=== PATIENT | female | born 2000 | race Caucasian/White ===

== ENCOUNTER 2020-08-24 14:53 | Emergency (ER) | payer BC, MEDICAID, SELFPAY ==
[2020-08-24 14:54] VITALS: BP 99/69; PULSE 84; RESP 16; TEMP 36.1; BMI 25.8
--- NOTE | 2020-08-24 15:37 | RAD_ITS ---
STUDY: X-RAY - LEFT KNEE REASON FOR EXAM: Female, 20 years old. left knee pain x months, pt states doing PT, woke up today and pain worse TECHNIQUE: 4 view(s) of the knee. COMPARISON: None. FINDINGS: Normal visualized distal femur. Normal visualized proximal tibia and fibula. Normal proximal tibiofibular articulation. Normal medial femorotibial compartment. Normal lateral femorotibial compartment. Normal patellofemoral articulation. There is no demonstrated joint effusion. The soft tissue structures are unremarkable. RAD/Knee 4 or More Views IMPRESSION: Normal x-ray examination of the knee. Electronically Signed: Khoi Reinoso MD ([place]) at 15:54 EST , Service support ,
--- NOTE | 2020-08-24 15:37 | ED.DCSUM_ITS ---
History of Present Illness Chief Complaint: Lower Extremity Injury Informant: Patient Narrative: 20-year-old female presenting with left knee pain. She states this is a longstanding issue with her. She states that she has played years of softball the knee has been a problem for a while. She is recently seen by a physician and had x-rays of the left knee. She is in physical therapy for her left knee. Today she woke up with more pain in her left knee. She denies any new trauma. She denies any numbness or tingling. She states that it hurts more inferior to the patella and medial aspect of knee. She is ambulatory with antalgic gait. She is currently on steroids from her other physician. Past Medical History - Allergies and Home Meds Allergies/Adverse Reactions: Allergies No Known Allergies Allergy (Verified 08/24/20 14:58) Primary Care Physician: Jamie Sauceda,Out of [NON-STAFF] - Prior records reviewed: Yes Past Medical History: None Surgical History: noncontributory Lives: With Family Smoking Status: Never smoker Alcohol: None Drugs: None Review of Systems General: Denies: Chills, Fever, Sweats Eyes: Denies: Visual changes - bilaterally, Diplopia ENT: Denies: Rhinorrhea, Sore throat Cardiovascular: Denies: Chest pain, Palpitations Respiratory: Denies: Dyspnea, Cough, Dyspnea on exertion Gastrointestinal: Denies: Abdominal pain, Nausea, Vomiting, Diarrhea, Melena, Hematochezia Musculoskeletal: Reports: Extremity Pain - Left knee pain. Denies: Back pain Skin: Denies: Rash, Abscess Neurological: Denies: Headache, Weakness Psych: Denies: Depression, Anxiety Physical Exam Vital Signs/Narrative: Vital Signs Temp Pulse Resp BP 08/24/20 14:54 97.0 F L 84 16 99/69 General: Well nourished, No Acute Distress Head: Normocephalic, Atraumatic Eyes: Perrl, EOMI ENT: Moist mucous membranes, No rhinorrhea Extremities: - - Tenderness to palpation at the insertion point of the patellar tendon. Patient has full range of motion in flexion and extension. There is no ligament laxity. Tenderness to palpation over the medial joint line. There is no bruising. There is no short arc range of motion tenderness. Skin: Normal color, No rash Neurological: Alert, Oriented x3 Psychological: Normal affect, Normal Mood Diagnostic/Tx/Re-eval Clinical Impression(s) from Imaging Studies Knee X-Ray 08/24/20 15:37 IMPRESSION: Normal x-ray examination of the knee. Electronically Signed: Khoi Reinoso MD ([place]) at 15:54 EST , Service support , - Medical Decision Making 20-year-old female presenting with left knee pain. She request something for pain and johanny-rays of her knee as she has not received the results of these. Patient given a [place] and left knee x-ray is obtained. My interpretation of left knee x-ray shows no acute fracture or subluxation. Radiology does agree. Patient does state that she already had an MRI of her knee which she is waiting for the results for. Patient counseled to follow-up with her sports medicine physician. She requested a knee immobilizer and was given this. She is instructed on ice and elevation. She is also given a prescription for Naprosyn. She declined crutches in the ED. Impression 1. Left knee strain ED Disposition - Plan for ED Patient: Disposition: Home or Assisted Living Instructions: ED Knee Sprain Prescriptions: Naproxen 500 mg PO BID PRN PRN #30 tab PRN Reason: Pain Prescription Printed Referrals: [facility] Doctor,Out of [NON-STAFF] -
[2020-08-24] MEDS: HYDROcodone Bitartrate/Apap 5/325 Tablet PO (15:56)
[2020-08-24 16:33] VITALS: BP 112/74; PULSE 86; RESP 16; O2SAT 97
== END 2020-08-24 16:35 | disposition home or self-care (01) ==
LOC: ED 16:20
PROVIDERS: Emergency Provider Student in an Organized Health Care Education/Training Program
DX: S86.912A Strain of unspecified muscle(s) and tendon(s) at lower leg level, left leg, initial encounter (principal); X58.XXXA Exposure to other specified factors, initial encounter; Y93.9 Activity, unspecified; Y92.9 Unspecified place or not applicable; Y99.9 Unspecified external cause status
CPT/HCPCS: 73564; 99283

== ENCOUNTER → 2020-09-15 11:23 | Outpatient (CLI) | payer BC, MEDICAID, SELFPAY | PROVIDERS: Referring Provider Obstetrics & Gynecology; Visit Provider Obstetrics & Gynecology | DX: Z32.01 Encounter for pregnancy test, result positive (principal) | CPT/HCPCS: 36415; 84702 ==

== ENCOUNTER → 2020-09-18 11:16 | Outpatient (CLI) | payer BC, MEDICAID, SELFPAY ==
--- NOTE | 2020-09-18 11:17 | US_ITS ---
STUDY: FIRST TRIMESTER OBSTETRICAL ULTRASOUND REASON FOR EXAM: Female, 20 years old dating/viability LMP: 08/01/2020 TECHNIQUE: Transvaginal TECHNICAL QUALITY: Adequate. PRIOR ULTRASOUND: None. FINDINGS: There is visualization of a single gestational sac in a normal intrauterine position. The mean sac diameter (MSD) measures 2.45 cm, indicating an estimated gestational age (EGA) of 7 weeks, 4 days. The gestational sac shape is within normal limits. There is a visualized yolk sac. The yolk sac measures 4.6 mm. The placenta is non-visualized. There is visualization of a live embryo. The crown-rump length (CRL) measures 8 mm, indicating an estimated gestational age (EGA) of 6 weeks, 6 days. There is demonstrated cardiac activity with a heart rate of 119 bpm. The estimated gestation age (EGA) by LMP is 7 weeks, 2 days. The estimated date of delivery (DERICK) by LMP is 05/05/2021. The estimated gestation age (EGA) by US is 6 weeks, 6 days. The estimated date of delivery (DERICK) by US is 05/08/2021. The uterus measures 10.6 cm x 6.5 cm x 6.3 cm. There is no demonstrated uterine fibroid. The cervix is closed. The right ovary measures 2.3 cm x 1.9 cm x 1.1 cm. There is no right ovarian cyst. There is no visualized right adnexal mass or complex lesion. The left ovary measures 3 cm x 1.5 cm x 1.6 cm. There is no left ovarian cyst. There is no visualized left adnexal mass or complex lesion. There is no fluid in the cul de sac. US/Transvaginal w/Preg US IMPRESSION: Single live intrauterine gestation with a mean gestational age of 6 weeks and 6 days. Electronically Signed: Fredo Grant MD at 13:49 EST , Service support ,
== END ==
PROVIDERS: Referring Provider Obstetrics & Gynecology; Visit Provider Obstetrics & Gynecology
DX: Z34.91 Encounter for supervision of normal pregnancy, unspecified, first trimester (principal)
CPT/HCPCS: 76817

== ENCOUNTER → 2020-09-25 15:40 | Outpatient (CLI) | payer BC, MEDICAID, SELFPAY ==
[2020-09-25 14:45] VITALS: BMI 29.3
[2020-09-25 16:00] LABS: Absolute Lymphocyte Count 2.12 X10^3/uL (0.83-4.51); Absolute Neutrophil Count 6.6 X10^3/uL (2.0-7.7); Basophil# 0.03 X10^3/uL; Basophil% 0.3 % (0-1); Eosinophil# 0.05 X10^3/uL; Eosinophils% 0.5 % (0-5); Hematocrit 41.1 % (37-47); Hemoglobin 13.6 g/dL (12.0-15.0); Lymphocyte # 2.12 X10^3/ul (4.0); Lymphocyte % 22.1 % (19-41); Mean Corp Hgb Conc 33.1 g/dL (32-36); Mean Corpuscular Hgb 28.3 pg (27.0-32.0); Mean Corpuscular Volume 85.6 fL (81-99); Mean Platelet Vol. 9.9 fl (6.2-12.0); Monocyte# 0.79 X10^3/uL; Monocyte% 8.2 % (0-10); NRBC Flagged by Analyzer 0 % (0-5); Neutrophil # 6.59 X10^3/uL (2.7-7.7); Neutrophil % 68.6 % (47-70); Platelet Count 322 K/mm3 (150-450); RBC Distribution Width CV 15.1 % (11.6-14.6); RBC Distribution Width SD 47.1 fl (35.1-43.9); White Blood Count 9.6 K/mm3 (4.4-11.0)
[2020-09-25 18:01] LABS: Amphetamine Urine VISTA NEGATIVE (<1000 ng/mL); Barbiturate Urine VISTA NEGATIVE (< 200 ng/mL); Benzodiazepine Urine VISTA NEGATIVE (< 200 ng/mL); Cocaine Urine VISTA NEGATIVE (< 300 ng/mL); Ecstacy Urine VISTA NEGATIVE (< 500 ng/mL); Methadone Urine VISTA NEGATIVE (< 300 ng/mL); PCP Urine VISTA NEGATIVE (< 25 ng/mL); THC Urine VISTA NEGATIVE (< 50 ng/mL); Vista UDS pH Range 5
[2020-09-26 10:09] LABS: HIV - WCH Non-Reactive (Nonreactive); Hepatitis B Surface Antigen Non-Reactive (Nonreactive); Hepatitis C Antibody Non-Reactive (Nonreactive); Rubella IgG Reactive (Nonreactive)
[2020-09-29 03:06] LABS: Chlamydia By Nucleic Acid AMP Negative (Negative)
[2020-09-29 07:33] LABS: Gonococcus By Nucleic Acid AMP Negative (Negative)
[2020-10-02 20:19] LABS: HPV APTIMA, High Risk Positive (Negative); HPV Reflexed? YES, CHARGE PATIENT
== END ==
PROVIDERS: Referring Provider Obstetrics & Gynecology; Visit Provider Obstetrics & Gynecology
DX: Z12.4 Encounter for screening for malignant neoplasm of cervix (principal); Z34.80 Encounter for supervision of other normal pregnancy, unspecified trimester
CPT/HCPCS: 36415; 80307; 85025; 86703; 86762; 86803; 86850; 86900; 86901; 87086; 87088; 87340; 87491; 87591; 87624; 88175; G0145

== ENCOUNTER → 2020-10-24 14:13 | Outpatient (CLI) | payer BC, MEDICAID, SELFPAY ==
[2020-10-24 13:26] VITALS: BMI 29.8
[2020-10-24 15:19] LABS: NATERA MAILED SPECIMEN
[2020-10-27 10:14] LABS: Syphilis Antibodies Non-reactive
== END ==
PROVIDERS: Referring Provider Obstetrics & Gynecology; Visit Provider Obstetrics & Gynecology
DX: Z34.82 Encounter for supervision of other normal pregnancy, second trimester (principal); Z31.430 Encounter of female for testing for genetic disease carrier status for procreative management
CPT/HCPCS: 86780

== ENCOUNTER 2021-01-05 07:45 | Outpatient (CLI) | payer BC, MEDICAID, SELFPAY ==
[2020-12-26 15:23] VITALS: BMI 29.8
[2021-01-05 08:06] VITALS: PULSE 82; O2SAT 95
[2021-01-05 08:08] VITALS: BP 115/77; PULSE 90; TEMP 37.2; O2SAT 99
[2021-01-05 08:09] VITALS: BMI 32.5
[2021-01-05 09:26] LABS: Hematocrit 35.5 % (37-47); Hemoglobin 11.1 g/dL (12.0-15.0); Mean Corp Hgb Conc 31.3 g/dL (32-36); Mean Corpuscular Hgb 28.3 pg (27.0-32.0); Mean Corpuscular Volume 90.6 fL (81-99); Mean Platelet Vol. 10.6 fl (6.2-12.0); Platelet Count 251 K/mm3 (150-450); RBC Distribution Width CV 13.9 % (11.6-14.6); RBC Distribution Width SD 45.6 fl (35.1-43.9); Red Blood Count 3.92 M/mm3 (4.2-5.4); White Blood Count 9.7 K/mm3 (4.4-11.0)
[2021-01-05 09:31] LABS: Fibrinogen 390 mg/dl (203-444)
--- NOTE | 2021-01-06 03:34 | OB.TRI.PN_ITS ---
Progress Notes Date of Service: 01/05/21 Progress Note: Patient presents for triage evaluation secondary to abdominal pain FHT: 150s present [place]: No regular contractions Assessment and plan: Abdominal pain, CBC fibrinogen type and screen done, RhoGam given, reactive NST, reassuring maternal and status patient discharged to home to follow-up as scheduled. See problem list details for additional plan information. Laboratory Studies: Laboratory Tests 01/05/21 01/05/21 01/05/21 Range/Units 09:00 09:00 09:00 WBC 9.7 (4.4-11.0) K/mm3 RBC 3.92 L (4.2-5.4) M/mm3 Hgb 11.1 L (12.0-15.0) g/dL Hct 35.5 L (37-47) % MCV 90.6 (81-99) fL MCH 28.3 (27.0-32.0) pg MCHC 31.3 L (32-36) g/dL RDW Std Deviation 45.6 H (35.1-43.9) fl RDW Coeff of Tosin 13.9 (11.6-14.6) % Plt Count 251 (150-450) K/mm3 MPV 10.6 (6.2-12.0) fl Fibrinogen 390 (203-444) mg/dl Blood Type A NEGATIVE Antibody Screen NEGATIVE Screen Cancelled Baby's Blood Type Cancelled Baby's KIERA Cancelled Charges/Coding Procedures Urinary/Genital 52xxx-59xxx: No Charge
[2021-01-06 07:15] LABS: Kleihauer-Betke Negative
== END 2021-01-05 11:14 | disposition home or self-care (01) ==
LOC: WPOUT 07:51 → WP 07:52
PROVIDERS: Referring Provider Obstetrics & Gynecology; Visit Provider Obstetrics & Gynecology
DX: O26.90 Pregnancy related conditions, unspecified, unspecified trimester (principal); R10.9 Unspecified abdominal pain
CPT/HCPCS: 59050; 85027; 85384; 85460; 86850; 86900; 86901; 90384; 96372; 99218; G0378; J2790

== ENCOUNTER → 2021-01-23 10:56 | Outpatient (CLI) | payer BC, MEDICAID, SELFPAY ==
[2021-01-14 15:08] VITALS: BMI 32.5
[2021-01-23 11:17] LABS: Absolute Lymphocyte Count 1.51 X10^3/uL (0.83-4.51); Absolute Neutrophil Count 6.8 X10^3/uL (2.0-7.7); Basophil# 0.02 X10^3/uL; Basophil% 0.2 % (0-1); Eosinophil# 0.15 X10^3/uL; Eosinophils% 1.6 % (0-5); Hematocrit 34.3 % (37-47); Hemoglobin 10.9 g/dL (12.0-15.0); Lymphocyte # 1.51 X10^3/ul (0.83-4.51); Lymphocyte % 16.1 % (19-41); Mean Corp Hgb Conc 31.8 g/dL (32-36); Mean Corpuscular Hgb 28.3 pg (27.0-32.0); Mean Corpuscular Volume 89.1 fL (81-99); Mean Platelet Vol. 10.5 fl (6.2-12.0); Monocyte# 0.75 X10^3/uL; NRBC Flagged by Analyzer 0 % (0-5); Neutrophil # 6.83 X10^3/uL (2.7-7.7); Neutrophil % 72.9 % (47-70); Platelet Count 259 K/mm3 (150-450); RBC Distribution Width CV 13.9 % (11.6-14.6); RBC Distribution Width SD 44.9 fl (35.1-43.9); Red Blood Count 3.85 M/mm3 (4.2-5.4); White Blood Count 9.4 K/mm3 (4.4-11.0)
[2021-01-23 11:18] LABS: Glucose Challenge Gest 1H 50g 108 mg/dL (70-140)
== END ==
PROVIDERS: Referring Provider Obstetrics & Gynecology; Visit Provider Obstetrics & Gynecology
DX: Z34.92 Encounter for supervision of normal pregnancy, unspecified, second trimester (principal); Z3A.21 21 weeks gestation of pregnancy
CPT/HCPCS: 36415; 82950; 85025

== ENCOUNTER → 2021-02-24 15:34 | Outpatient (CLI) | payer BC, MEDICAID, SELFPAY ==
[2021-02-24 15:17] VITALS: BMI 32.5
[2021-02-24 15:51] LABS: Absolute Lymphocyte Count 2.08 X10^3/uL (0.83-4.51); Absolute Neutrophil Count 7.5 X10^3/uL (2.0-7.7); Basophil# 0.03 X10^3/uL; Basophil% 0.3 % (0-1); Eosinophil# 0.11 X10^3/uL; Hematocrit 32.9 % (37-47); Hemoglobin 10.3 g/dL (12.0-15.0); Lymphocyte # 2.08 X10^3/ul (0.83-4.51); Lymphocyte % 19.4 % (19-41); Mean Corp Hgb Conc 31.3 g/dL (32-36); Mean Corpuscular Hgb 26.4 pg (27.0-32.0); Mean Corpuscular Volume 84.4 fL (81-99); Mean Platelet Vol. 10.6 fl (6.2-12.0); Monocyte# 0.91 X10^3/uL; Monocyte% 8.5 % (0-10); NRBC Flagged by Analyzer 0 % (0-5); Neutrophil # 7.49 X10^3/uL (2.7-7.7); Neutrophil % 69.9 % (47-70); Platelet Count 273 K/mm3 (150-450); RBC Distribution Width SD 43.3 fl (35.1-43.9); White Blood Count 10.7 K/mm3 (4.4-11.0)
== END ==
PROVIDERS: Referring Provider Nurse Practitioner Women's Health; Visit Provider Nurse Practitioner Women's Health
DX: Z34.93 Encounter for supervision of normal pregnancy, unspecified, third trimester (principal)
CPT/HCPCS: 36415; 85025; 86850; 86870; 86900; 86901

== ENCOUNTER → 2021-04-01 11:35 | Outpatient (CLI) | payer BC, MEDICAID, SELFPAY ==
[2021-04-01 11:58] LABS: Absolute Lymphocyte Count 1.64 X10^3/uL (0.83-4.51); Absolute Neutrophil Count 6.7 X10^3/uL (2.0-7.7); Basophil# 0.03 X10^3/uL; Basophil% 0.3 % (0-1); Eosinophil# 0.12 X10^3/uL; Eosinophils% 1.3 % (0-5); Hematocrit 33.3 % (37-47); Lymphocyte # 1.64 X10^3/ul (0.83-4.51); Lymphocyte % 17.2 % (19-41); Mean Corpuscular Hgb 24.9 pg (27.0-32.0); Mean Corpuscular Volume 82.8 fL (81-99); Monocyte# 0.87 X10^3/uL; Monocyte% 9.1 % (0-10); NRBC Flagged by Analyzer 0 % (0-5); Neutrophil # 6.74 X10^3/uL (2.7-7.7); Neutrophil % 70.8 % (47-70); Platelet Count 238 K/mm3 (150-450); RBC Distribution Width CV 15.6 % (11.6-14.6); RBC Distribution Width SD 46.9 fl (35.1-43.9); Red Blood Count 4.02 M/mm3 (4.2-5.4); White Blood Count 9.5 K/mm3 (4.4-11.0)
== END ==
PROVIDERS: Referring Provider Obstetrics & Gynecology; Visit Provider Obstetrics & Gynecology
DX: O99.012 Anemia complicating pregnancy, second trimester (principal); D50.9 Iron deficiency anemia, unspecified; O26.892 Other specified pregnancy related conditions, second trimester; Z67.91 Unspecified blood type, Rh negative; Z3A.00 Weeks of gestation of pregnancy not specified
CPT/HCPCS: 36415; 85025; 86850; 86900; 86901

== ENCOUNTER → 2021-04-10 | Outpatient (CLI) | payer BC, MEDICAID, SELFPAY | END | disposition home or self-care (01) | LOC: LABSPEC 16:09 | PROVIDERS: Referring Provider Obstetrics & Gynecology; Visit Provider Obstetrics & Gynecology | DX: Z34.80 Encounter for supervision of other normal pregnancy, unspecified trimester (principal) | CPT/HCPCS: 87081 ==

== ENCOUNTER 2021-04-23 21:40 | Outpatient (CLI) | payer BC, MEDICAID, SELFPAY ==
[2021-04-23] VITALS (14 sets, daily range): BP systolic 119; BP diastolic 75; PULSE 106–125; TEMP 36.8; O2SAT 96–99; BMI 34.3
--- NOTE | 2021-04-23 22:39 | EKG12_ITS ---
Test Reason : TACHYCARDIA Blood Pressure : / mmHG Vent. Rate : 114 BPM Atrial Rate : 114 BPM P-R Int : 144 ms QRS Dur : 078 ms QT Int : 334 ms P-R-T Axes : 033 027 038 degrees QTc Int : 460 ms Sinus tachycardia Otherwise normal ECG No previous ECGs available Confirmed by KATEY OSULLIVAN, AMOS ([id number]), index editor HIWOT EAGLE ([id number]) on 04/28/2021 9:53:45 AM Referred By: BERNIE Confirmed By:AMOS DEL TORO MD
[2021-04-23] MEDS: Lactated Ringers 1,000 ML 999 ML IV (22:55)
[2021-04-23 23:27] LABS: Absolute Lymphocyte Count 0.92 X10^3/uL (0.83-4.51); Absolute Neutrophil Count 5.8 X10^3/uL (2.0-7.7); Basophil# 0.04 X10^3/uL; Basophil% 0.5 % (0-1); Eosinophil# 0.01 X10^3/uL; Eosinophils% 0.1 % (0-5); Hematocrit 30.9 % (37-47); Hemoglobin 9.2 g/dL (12.0-15.0); Lymphocyte # 0.92 X10^3/ul (0.83-4.51); Lymphocyte % 11.3 % (19-41); Mean Corp Hgb Conc 29.8 g/dL (32-36); Mean Corpuscular Hgb 23.9 pg (27.0-32.0); Mean Corpuscular Volume 80.3 fL (81-99); Mean Platelet Vol. 11.7 fl (6.2-12.0); Monocyte# 1.08 X10^3/uL; Monocyte% 13.2 % (0-10); NRBC Flagged by Analyzer 0.4 % (0-5); Neutrophil # 5.81 X10^3/uL (2.7-7.7); Neutrophil % 71.1 % (47-70); Platelet Count 195 K/mm3 (150-450); RBC Distribution Width CV 17.2 % (11.6-14.6); RBC Distribution Width SD 49.1 fl (35.1-43.9); Red Blood Count 3.85 M/mm3 (4.2-5.4); White Blood Count 8.2 K/mm3 (4.4-11.0)
[2021-04-24 00:01] VITALS: PULSE 114; O2SAT 97
--- NOTE | 2021-04-29 07:58 | OB.TRI.PN ---
Progress Notes Date of Service: 04/23/21 Progress Note: Patient presents for triage evaluation secondary to painful bump on lower abdomen. Area consistent with edema. Incidentally found to be tachycardic. EKG and CBC normal. Resolved with IV fluids. FHT: Moderate variability reactive no decelerations category I tracing [place]: No Contractions Assessment and plan: Reactive NST, reassuring maternal and status patient discharged to home to follow-up at next scheduled visit. See problem list details for additional plan information. Laboratory Studies: Laboratory Tests 04/23/21 Range/Units 22:55 WBC 8.2 (4.4-11.0) K/mm3 RBC 3.85 L (4.2-5.4) M/mm3 Hgb 9.2 L (12.0-15.0) g/dL Hct 30.9 L (37-47) % MCV 80.3 L (81-99) fL MCH 23.9 L (27.0-32.0) pg MCHC 29.8 L (32-36) g/dL RDW Std Deviation 49.1 H (35.1-43.9) fl RDW Coeff of Tosin 17.2 H (11.6-14.6) % Plt Count 195 (150-450) K/mm3 MPV 11.7 (6.2-12.0) fl Immature Gran % (Auto) 3.800 H (0.0-0.9) % Neut % (Auto) 71.1 H (47-70) % Lymph % (Auto) 11.3 L (19-41) % Dickey % (Auto) 13.2 H (0-10) % Eos % (Auto) 0.1 (0-5) % Baso % (Auto) 0.5 (0-1) % Absolute Neuts (auto) 5.8 (2.0-7.7) X10^3/uL Absolute Lymphs (auto) 0.92 (0.83-4.51) X10^3/uL Nucleated RBC % 0.4 (0-5) % Charges/Coding Procedures Urinary/Genital 52xxx-59xxx: [id number] non-stress test Interp
== END 2021-04-24 00:10 | disposition home or self-care (01) ==
LOC: WPOUT 21:48 → WP 21:49
PROVIDERS: Visit Provider Obstetrics & Gynecology
DX: O99.891 Other specified diseases and conditions complicating pregnancy (principal); L98.9 Disorder of the skin and subcutaneous tissue, unspecified; R00.0 Tachycardia, unspecified; Z3A.00 Weeks of gestation of pregnancy not specified
CPT/HCPCS: 96360; 36415; 59025; 59050; 85025; 93005; 99218; J7120; G0378

== ENCOUNTER 2021-05-02 05:48 | Inpatient (IN) | payer BC, MEDICAID, SELFPAY ==
[2021-05-02] VITALS (48 sets, daily range): BP systolic 102–135; BP diastolic 56–80; PULSE 74–113; RESP 16–18; TEMP 36.2–36.5; O2SAT 86–99; BMI 34.0
[2021-05-02] MEDS: Lactated Ringers 1,000 ML 50 ML IV (06:00)
[2021-05-02] MEDS: Lactated Ringers 500 ML 999 ML IV (06:05)
[2021-05-02 06:14] LABS: Absolute Lymphocyte Count 1.76 X10^3/uL (0.83-4.51); Absolute Neutrophil Count 3.1 X10^3/uL (2.0-7.7); Basophil# 0.02 X10^3/uL; Basophil% 0.4 % (0-1); Eosinophil# 0.04 X10^3/uL; Eosinophils% 0.8 % (0-5); Hematocrit 37.1 % (37-47); Hemoglobin 10.9 g/dL (12.0-15.0); Lymphocyte # 1.76 X10^3/ul (0.83-4.51); Lymphocyte % 33.4 % (19-41); Mean Corp Hgb Conc 29.4 g/dL (32-36); Mean Corpuscular Hgb 23.4 pg (27.0-32.0); Mean Corpuscular Volume 79.6 fL (81-99); Mean Platelet Vol. 11.2 fl (6.2-12.0); Monocyte# 0.32 X10^3/uL; Monocyte% 6.1 % (0-10); NRBC Flagged by Analyzer 0 % (0-5); Neutrophil # 3.08 X10^3/uL (2.7-7.7); Neutrophil % 58.4 % (47-70); Platelet Count 253 K/mm3 (150-450); RBC Distribution Width CV 17.8 % (11.6-14.6); RBC Distribution Width SD 50.4 fl (35.1-43.9); Red Blood Count 4.66 M/mm3 (4.2-5.4); White Blood Count 5.3 K/mm3 (4.4-11.0)
--- NOTE | 2021-05-02 06:22 | HP.PCM.OB_ITS ---
HPI - General General Date of Admission: 05/02/21 HPI Narrative NABIL LIPSCOMB, is a 20 F who presents IAL 4 cm dilated Maternal Data Information DERICK Calculator Estimated Delivery Date Method Current WG Current Estimate 05/08/21 LMP (Certain) 39w 1d Other Estimates 05/08/21 Ultrasound #1 39w 1d PFSH PFSH Medical History Anemia No significant family history No significant medical problems Home Medications ferrous sulfate 325 mg (65 mg iron) tablet 325 mg PO DAILY 04/01/21 [History Last Taken 05/01/21] famotidine [Pepcid] 20 mg PO BID 05/02/21 [History Last Taken 05/01/21] Allergy/AdvReac Type Severity Reaction Status Date / Time No Known Allergies Allergy Verified 05/02/21 06:16 Surgical History No significant past surgical history Social History household members: family housing: house number of children: 1 pets and animals: Yes sexually active: No Smoking Status: Never smoker second hand exposure: Yes alcohol intake: current alcohol intake frequency: holidays/special occasions only details: not while substance use type: does not use seatbelt use: always do you feel safe at home: Yes additional social history: BF: Jase History 2 Elective abortions Hx Para 1 Spontaneous abortions Hx # Term Pregnancies Ectopic pregnancies Hx # Pregnancies Multiple births # of living children 1 Past Pregnancies Del. Date Name GA/Weeks Outcome Route Bth Weight Gen [facility]20 Tia 36 live - 6lbs 9oz Female 13 romero rs epidural [facility] in [place], [place] Dr. Mckinley Delivery Date: 02/29/20 PROM Concha Lopez Visit Details Expected Delivery Route/Plan Labor Preferences- CB/BF classes: no labor support person: Jase labor intervention preferences: [] pain management options preferred: epidural cut cord/dad catch: cord : no PP control planned: discussed discussed possible routes of delivery and associated risks: [] special requests: [] Plans covid status: non immune flu vaccine: tdap vaccine: given rhogam: 6/22 LARC form signed: yes Problem list reviewed and updated with the most current plan of care details and appropriate orders placed. Relevant counseling for the gestational age provided. Continue routine care and follow up unless otherwise noted in visit notes/problem list details OB Flowsheet Initial Weight: 199 lb Date -?-?-?-?-?-?-?-?-?-?-?-?- EGA Weight BP Urine Prot -?-?-?-?-?-?-?-?-?-?-?-?- Glucose FHR FuHt Pres Dilation -?-?-?-?-?-?-?-?-?-?-?-?- Effaced St Visit Note 09/25/20 -?-?-?-?-?-?-?-?-?-?-?-?- 7w 6d 199 lb (+0 oz) 118/78 -?-?-?-?-?-?-?-?-?-?-?-?- 168 -?-?-?-?-?-?-?-?-?-?-?-?- GP - CRL 14mm co nsistent with prior US. 10/24/20 -?-?-?-?-?-?-?-?-?-?-?-?- 12w 0d 202 lb (+3 lb) 122/76 Negative -?-?-?-?-?-?-?-?-?-?-?-?- Negative 150 -?-?-?-?-?-?-?-?-?-?-?-?- SM- no vb crmapi ng, ordered meclizine. 11/21/20 -?-?-?-?-?-?-?-?-?-?-?-?- 16w 0d 208 lb 4 oz (+9 lb 4 oz) 112/70 -?-?-?-?-?-?-?-?-?-?-?-?- 150 -?-?-?-?-?-?-?-?-?-?-?-?- GP - no cramping or bleeding. Anatomy ordered. Discussed +carrier screen. Information given. Undecided on partner screening. 12/26/20 -?-?-?-?-?-?-?-?-?-?-?-?- 21w 0d 218 lb (+19 lb) 120/80 -?-?-?-?-?-?-?-?-?-?-?-?- 145 20 -?-?-?-?-?-?-?-?-?-?-?-?- Sm- no vb lof go od fm no reuglar ctx 01/14/21 -?-?-?-?-?-?-?-?-?-?-?-?- 23w 5d 225 lb 2 oz (+26 lb 2 oz) 134/80 Negative -?-?-?-?-?-?-?-?-?-?-?-?- Negative 155 23 -?-?-?-?-?--?-?-?-?-?-?-?- GP - no LOF, VB, DFM, ctx. Received rhogam in triage 01/0602/13/21 -?-?-?-?-?-?-?-?-?-?-?-?- 28w 0d 231 lb (+32 lb) 118/84 -?-?-?-?-?-?-?-?-?-?-?-?- 140 28 -?-?-?-?-?-?-?-?-?-?-?-?- SM- no vb lof go od fm no regular ctx 02/24/21 -?-?-?-?-?-?-?-?-?-?-?-?- 29w 4d 234 lb (+35 lb) 118/68 Negative -?-?-?-?-?-?-?-?-?-?-?-?- Negative 139 30 -?-?-?-?-?-?-?-?-?-?-?-?- -No VB, LOF. G ood FM. Has not done repeat anatomy US to complete heart views. Per MFM FTC appt, pt states unaware. Will reschedule. Larc, tdap -No VB, LOF. Good FM. Has not done. repeat anatomy US to complete heart views. Per MFM FTC appt, pt states unaware. Will reschedule. Larc, tdap. Rpt CBC today 03/13/21 -?-?-?-?-?-?-?-?-?-?-?-?- 32w 0d 235 lb (+36 lb) 118/78 -?-?-?-?-?-?-?-?-?-?-?-?- 155 32 -?-?-?-?-?-?-?-?-?-?-?-?- GP - no LOF, VB, DFM, ctx. Discussed need for rhogam 03/3104/01/21 -?-?-?-?-?-?-?-?-?-?-?-?- 34w 5d 238 lb 2 oz (+39 lb 2 oz) 110/80 -?-?-?-?-?-?-?-?-?-?-?-?- 135 34 -?-?-?-?-?-?-?-?-?-?-?-?- GP - no LOF, VB, DFM, ctx. Rhogam today. 04/10/21 -?-?-?-?-?-?-?-?-?-?-?-?- 36w 0d 243 lb 4 oz (+44 lb 4 oz) 130/84 Negative -?-?-?-?-?-?-?-?-?-?-?-?- Negative 140 36 Cephalic 1 -?-?-?-?-?-?-?-?-?-?-?-?- 50 -3 GP - no LO F, VB, DFM, ctx. GBS done today. 04/16/21 -?-?--?-?-?-?-?-?-?-?-?-?- 36w 6d 244 lb (+45 lb) 118/70 Negative -?-?-?-?-?-?-?-?-?-?-?-?- Negative 125 37 Cephalic 1 -?-?-?-?-?-?-?-?-?-?--?-?- SM- n ovb lof go od fm no regular ctx 04/24/21 -?-?-?-?-?-?-?-?-?-?-?-?- 38w 0d 241 lb (+42 lb) 122/74 Negative -?-?-?-?-?-?-?-?-?-?-?-?- Negative 130 39 Cephalic 3 -?-?-?-?-?-?-?-?-?-?-?-?- 70 -2 SM- no vb lof good fm nor egular ctx 05/02/21 -?-?-?-?-?-?-?-?-?-?-?-?- 39w 1d 230 lb 12.8 oz (+31 lb 12.8 oz) -?-?-?-?-?-?-?-?-?-?-?-?- -?-?-?-?-?-?-?-?-?-?-?-?- NST FHR Rate Baby A Baseline: 140 Variability:: Moderate Accelerations:: 15 x 15 Decelerations:: None NST Reactive:: Yes FHR Category:: Category I Uterine Activity:: q3-5 ROS Constitutional Constitutional: Reports systems reviewed and no addt'l complaints, except as documented ENT HEENT: Reports systems reviewed and no addt'l complaints, except as documented Cardiovascular Cardiovascular: Reports systems reviewed and no addt'l complaints, except as documented Respiratory/Chest Respiratory/Chest: Reports systems reviewed and no addt'l complaints, except as documented Gastrointestinal Gastrointestinal: Reports systems reviewed and no addt'l complaints, except as documented and nausea; Denies abdominal pain Genitourinary Genitourinary: Reports systems reviewed and no addt'l complaints, except as documented, contractions Details: present and frequency (regular ) and m ovement Details: present Musculoskeletal Musculoskeletal: Reports systems reviewed and no addt'l complaints, except as documented Integumentary Integumentary: Reports as per HPI Neurologic Neurologic: Reports systems reviewed and no addt'l complaints, except as documented Endocrine Endocrinology: Reports systems reviewed and no addt'l complaints, except as documented Vital Signs Vital Signs Vital Signs: Weight Weight: 230 lb 12.8 oz Body Mass Index (BMI) 34.0 Physical Exam Const alert, oriented x3 and healthy appearing Constitutional Narrative: uncomfortable with contractions HEENT normocephalic and moist oral mucous membranes Head and Scalp: atraumatic Neck full ROM, no lymphadenopathy, supple and thyroid normal General: trachea midline Thyroid: thyroid normal Lymph Lymphatic: no lymphadenopathy noted Chest inspection of chest normal Resp normal respiratory effort Cardio regular rate GI normal to inspection, nondistended, normoactive bowel sounds, soft to palpation and non-tender Inspection: gravid external exam normal Bimanual Exam - Vag & Uterus: uterus non-tender Manual OB Exam: estimated gestational size appropriate, presentation cephalic, dilated, effaced and station Extremity normal to inspection General Extremity: Negative for edema Skin no rashes or lesions noted Neuro deep tendon reflexes 2+ bilaterally Motor Exam: strength 5/5 throughout and clonus absent Psych mental status grossly normal Labs Labs Labs: Blood Type A NEGATIVE Antibody Screen NEGATIVE Hct 37.1 % (37-47) Hgb 10.9 g/dL (12.0-15.0) L Obstetrics US Syphilis Total Ab Non-reactive Rubella IgG Antibody Reactive (Nonreactive) Hep Bs Antigen Non-Reactive (Nonreactive) Neisseria gonorrhoeae DNA (ARIELLA) Negative (Negative) HIV 1&2 Antibody Non-Reactive (Nonreactive) Glucose 1 Hr 50 gm 108 mg/dL (70-140) Assessment & Plan (1) COVID-19 affecting in third trimester: COMMENT: Started aspirin (2) Anemia: QUALIFIERS: Anemia type: iron deficiency Iron deficiency anemia type: unspecified iron deficiency Qualified Code(s): D50.9 - Iron deficiency anemia, unspecified COMMENT: repeat CBC in 4 wks (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 Offered partner screen - declined (4) ASCUS with positive high risk HPV: COMMENT: repeat pap 1 yr (5) History of premature rupture of membranes in previous , currently : QUALIFIERS: Trimester: first trimester Qualified Code(s): O09.291 - Supervision of with other poor reproductive or obstetric history, first trimester COMMENT: Delivery at 36 weeks. Discussed risks vs. benefits of lety. Patient declines. (6) Short interval between pregnancies affecting , antepartum: COMMENT: 02/2020 (7) Rh negative status during : QUALIFIERS: Trimester: second trimester Qualified Code(s): O26.892 - Other specified related conditions, second trimester; Z67.91 - Unspecified blood type, Rh negative COMMENT: Rhogam given 01/06, got in march (8) Supervision of other normal : COMMENT: PRR DERICK 05/08/21 girl Alexsandra PC: Pina BF: Jase (9) : QUALIFIERS: Weeks of gestation: 38 weeks Qualified Code(s): Z3A.38 - 38 weeks gestation of COMMENT: carrier for gaucher disease- low risk and genetic, dec ntd screen. 12/25 NL anatomy; GBS NEG (10) Active labor at term: PLAN: admit IAL epidural PRN
[2021-05-02] MEDS: 0.9% Saline Lock 10 ML Syringe IV ×2 (07:17→12:00)
[2021-05-02] MEDS: Ondansetron 4 MG/2 ML Vial IV (07:18)
[2021-05-02] MEDS: fentaNYL-bupivacaine (epidural) 100 ML BAG EPIDURAL (07:53)
[2021-05-02] MEDS: Oxytocin 30 units/NS 500 ml 30 UNITS/500 ML IV.SOLN 334 UNITS IV (09:08)
--- NOTE | 2021-05-02 09:18 | EX.PCM.OBRPT ---
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 Offered partner screen - declined (5) ASCUS with positive high risk HPV: COMMENT: repeat pap 1 yr (6) History of premature rupture of membranes in previous , currently : QUALIFIERS: Trimester: first trimester Qualified Code(s): O09.291 - Supervision of with other poor reproductive or obstetric history, first trimester COMMENT: Delivery at 36 weeks. Discussed risks vs. benefits of lety. Patient declines. 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 12/25 NL anatomy; GBS NEG (11) Vaginal delivery: COMMENT: SM 39 girl alexsandra Maternal Data Information DERICK Calculator Estimated Delivery Date Method Current WG Current Estimate 05/08/21 LMP (Certain) 39w 1d Other Estimates 05/08/21 Ultrasound #1 39w 1d Vaginal Delivery Operative Information Pre-Operative Diagnosis: IAL Post-Operative Diagnosis: same Surgery / Procedure Performed: Spontaneous Vaginal Delivery Type of Anesthesia: Epidural Special Medications: none Estimated Blood Loss: 100 Fluids Replaced: crystalloid Findings Description of Procedure: Patient began pushing and delivered the head in the OMID presentation. The head was delivered atraumatically. The anterior and posterior shoulders delivered without complication followed by the rest of the infant and the infant was placed on the maternal abdomen. Delayed cord clamping was employed for approximately 60 seconds. Cord was clamped and cut and gentle traction was applied to the cord and the placenta delivered spontaneously immediately following it was noted to be intact with three-vessel cord. The perineum and vagina were inspected and noted to have no laceration. EBL was 100 cc. Patient and tolerated delivery well. Presentation: OMID Amniotic Membrane Rupture Type: Artificial Amniotic Fluid Description: Clear Placental Delivery Description: Spontaneous Placenta Disposition: [facility] Cord Vessel Description: 3 Vessels Cord Entanglement: None Delayed Cord Clamping: Yes Post Vaginal Delivery Medications Given After Delivery: IV Pitocin Episiotomy Description: None Laceration: None Complication Complications: None Procedures Urinary/Genital 52xxx-59xxx: [id number] Vaginal Delivery+ Care([facility])
--- NOTE | 2021-05-02 09:30 | PCM.DC ---
Discharge Instructions Diet Discharge Diet: No restrictions Activity Discharge Activity: Return to Normal Activity, May Not Drive (while taking narcotic pain medications.) and May Shower May resume sexual activity in: 4-6 weeks Dressing / Incision Call your doctor if your incision/area has: Continuous Slow Oozing, Sudden Increased Bleeding, Increased Pain/ Swelling, Increased Redness and Foul Smelling Discharge Follow Up Care Please Follow Up With: Shari Hallman MD When: Call [phone] to make an appointment with your doctor in 6 weeks. If you had elevated blood pressure or 4th degree laceration, you will need to be seen in 2 weeks. Test Results: Test results from this visit will be discussed in further detail at your follow-up appointment, if applicable. Discharge Plan Admission Admit Date/Time: 05/02/21 05:48 Primary Reason for Your Visit: vaginal delivery Attending Provider: Shari Hallman Primary Care Provider: Care Physician,No Primary Discharge Orders/Prescriptions Prescriptions: No Action ferrous sulfate 325 mg (65 mg iron) tablet 325 mg PO DAILY RF: 0 famotidine [Pepcid] 20 mg tablet 20 mg PO BID RF: 0 Referrals / Follow Up: Care Physician,No Primary [Primary Care Provider] - Disposition Disposition (needs filled in before D/C Order can be placed): Home, Self Care
[2021-05-02] MEDS: Naproxen 500 MG Tablet PO (11:05)
[2021-05-02] MEDS: Acetaminophen 500 MG Tablet 1000 MG PO (18:28)
--- NOTE | 2021-05-02 18:43 | CASEMGMT ---
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 Resources SW reviewed chart. SW met with AZ Zavala. She reports she had no concerns regarding patient. She said that patient are feeding the appropriately and have been holding the . SW met with patient and fob in the room. NB was in the bassinet. Mother was often noted to be smiling at the . FOB was playing on the phone during the whole interview. Mom: Danitza PNC: Dr. Hever Liu Control: Per patient they haven't decided yet Baby: Alexsandra Alejandre : 05/02/[birth year] Apgars: 8/9 Weight: 8 lbs Pilot Teacher: Karla Bottle Feeding MOB's Other children: 1 year old daughter, Pina Oro Housing: Patient, FOB reside with FOB's parents along with FOB's 11 year old daughter, patient's daughter Pina and . Patient said that Tia goes between us and her father. Transporation: Patient reports that she has access to car and is able to drive. Supplies: Patient reports she has all the supplies including carseat, bassinet, crib, clothes and diapers. Supports: Patient reports her support is the FOB, her parents who live 2 hours away and his parents, who they reside with. 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 She gets 5 months off due to the 's . Education Level: Patient graduated from High School. No learning disability. She reports she is doing on line college at [employer] for Elementary Education. Agency Involvement: WIC, [employer] [place], and legal issues related to the 1 year old's child's father wanting to be the residential custody. No counseling. SW offered referral to [facility] and patient declined. Father of the said they will get in touch with Delvis Washington from [facility] if they need the services as he has known her a long time. No CSB involvement. FOB: Jase, Significant Other Time Together: Father said I don't know and the patient said June 2020. Involved at : FOB said that he will be involved at . Employed: FOB said that he is self employed. He reports that he will take a week or two off work. Other Children: FOPaola has an 11 year old daughter, Ayana, who is a 5th grader at [employer]. He stated that he is the residential parent. FOB MH/AOD/DV: Denied by FOB. None reported by mom Maternal MH History: Mother denied any anxiety, depression or post depression. Patient and FOB were educated on Shaken Baby, Post Depression and Safe Sleeping. AOD and Drug History: Mother denied any drug or alcohol use before or during . Per chart patient had never smoked. SW asked patient and fob if they had any needs or concerns and they said no. SW provided patient with handout with following information, post support internation phone support, [facility] brochure, Safe sleeping brochure, [facility] Mother's of Newborns, Depression symptoms, Facts about depression and anxiety, Counseling agencies and online resources. Plan: Home at discharge Sharla HUBER
[2021-05-03] VITALS: BP 106/66; PULSE 86; RESP 16; TEMP 36.2; O2SAT 95
[2021-05-03 04:05] VITALS: BP 113/64; PULSE 88; RESP 16; TEMP 36.5; O2SAT 100
--- NOTE | 2021-05-03 08:04 | PCM.PN.OB ---
Subjective Subjective Patient doing well without complaints. Tolerating PO. Ambulating and voiding without difficulty. feeding well. Denies chest pain, shortness of breath, calf pain/swelling, fevers, chills, lightheadedness. Objective Data Objective Data Vital Signs: Vital Signs Temp Pulse Resp BP Pulse Ox 97.7 F L 88 16 113/64 100 05/03/21 04:05 05/03/21 04:05 05/03/21 04:05 05/03/21 04:05 05/03/21 04:05 Oxygen Delivery Method Room Air Weight: 230 lb 12.8 oz Body Mass Index (BMI) 34.0 Intake & Output: Intake and Output for Last 24 Hours 05/01/21 05/02/21 05/03/21 23:59 23:59 23:59 Intake Total 84 / Output Total 400 / 400 Balance 1610.84 / 1610.84 Lab / Micro Data Result Diagrams: 05/02/21 06:00 Labs: Laboratory Results - last 24 hr 05/02/21 06:00: Antibody Screen TNP 05/02/21 06:00: Antibody Screen NEGATIVE Micro: Microbiology 05/02/21 05:45 Nasal Secretion SARS-CoV-2 Antigen (Rapid) - Final ROS Constitutional Constitutional: Reports systems reviewed and no addt'l complaints, except as documented Cardiovascular Cardiovascular: Reports systems reviewed and no addt'l complaints, except as documented Respiratory/Chest Respiratory/Chest: Reports systems reviewed and no addt'l complaints, except as documented Gastrointestinal Gastrointestinal: Reports systems reviewed and no addt'l complaints, except as documented Physical Exam Const alert, oriented x3 and no apparent distress HEENT Head and Scalp: atraumatic Resp normal respiratory effort GI soft to palpation and non-tender Bimanual Exam - Vag & Uterus: uterus non-tender Uterus Palpation: uterus fundus firm (below Umbilicus) Assessment & Plan (1) Vaginal delivery: COMMENT: SM 39 girl virgil (2) Rh negative status during : QUALIFIERS: Trimester: second trimester Qualified Code(s): O26.892 - Other specified related conditions, second trimester; Z67.91 - Unspecified blood type, Rh negative COMMENT: Rhogam given 01/06, got in march
[2021-05-03 09:39] VITALS: BP 117/74; PULSE 65; RESP 18; TEMP 36.2; O2SAT 98
== END 2021-05-03 10:20 | disposition home or self-care (01) | DRG 805 ==
LOC: WPOUT 05:49 → WP 05:49
PROVIDERS: Admitting Provider Obstetrics & Gynecology; Visit Provider Obstetrics & Gynecology
DX: O99.02 Anemia complicating childbirth (principal); U07.1 COVID-19; Z37.0 Single live birth; O98.52 Other viral diseases complicating childbirth; D50.9 Iron deficiency anemia, unspecified; O26.893 Other specified pregnancy related conditions, third trimester; Z67.11 Type A blood, Rh negative; Z14.8 Genetic carrier of other disease; Z3A.39 39 weeks gestation of pregnancy; Z87.59 Personal history of other complications of pregnancy, childbirth and the puerperium
CPT/HCPCS: 59025; 59050; 85025; 86850; 86900; 86901; 87426; 99218; J7120; A4216; G0378; J2405

== ENCOUNTER → 2021-06-18 | Outpatient (CLI) | payer BC, MEDICAID, SELFPAY ==
[2021-06-24 16:13] LABS: HPV Reflexed? NOT INDICATED
== END | disposition home or self-care (01) ==
LOC: LABSPEC 16:44
PROVIDERS: Visit Provider Obstetrics & Gynecology
DX: Z12.4 Encounter for screening for malignant neoplasm of cervix (principal)
CPT/HCPCS: 88175; G0145

== ENCOUNTER 2021-07-27 11:00 | Outpatient (RCR) | payer BC, MEDICAID, SELFPAY ==
--- NOTE | 2021-06-08 10:40 | HP.PTEVAL ---
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 Date of Evaluation: 06/08/21 Physical Therapist: MITCH Pacheco - Visit Plan Frequency: 2x /Week Duration: 4 Weeks Plan: Pt had a baby 4 weeks ago and returns to Dr Jun 18 for full clearance. Pt says that her DR said she could do some strengthening as long as she is not hurting. 2X/ week for 4 weeks for core stability, hip strengthening, knee strength, gait training, stretching of L HS. HEP: SLR, Bridges, hip abd, and seated HS stretch - Subjective Pt has a lot of L knee pain that started years ago (2-3 years ago). Pt has had PT in [place]. Pt had a baby in April and saw Amauri when she moved from [place] to [place] but was also so did not have PT at that time but now needs to start PT. Pt reports that her L knee is flarring up because she has not done much in 9 months. She had an x-ray and MRI about a year ago and showed chondromalcia patella and other big words. She points to top of L knee where the pain is at and that it radiates down the rest of the L knee. It is worse in standing. It does not wake her up at night. She struggles with stairs and goes up and down recip with a railing. - Pain L knee pain Pain Intensity (Out of 10): 4 - Objective Gait: Walks with decrease stance time on the L, decreased heel strike, and increased knee flexion,. L knee AROM 0-112. R knee AROM 0-127. LE MMT: L hip flex 3+/5 and R 4-/5, L hip abd 4-/5 and R 4/5, L hip ext 4-/5 and R 4/5, L knee flex 3+/5 and R 4/5, L knee ext 3+/5 and R 4/5. Pt is not able to walk on the L heel and toes as it bothers her L knee. Pt has some hip flexor tightness B as well as demonstrated through bridge position. Palpation: pt was tender along the top of the L knee (superior patella and along the L IT Band. No pain in L knee with flex/ext and valgus/varus position but some audible crepitus heard on the L patella. - Balance/Special Test Scores Lower Extremity Functional Score: 63 - Goals Goal 1:: I HEP Goal Time Frame: 2-4 Weeks Goal 2:: Increase L knee AROM to 120 degrees L knee flexion Goal Time Frame: 4-6 Weeks Goal 3:: Increase L hip and knee strength by 1/2 muscle grade (at the time of the eval: LE MMT: L hip flex 3+/5 and R 4-/5, L hip abd 4-/5 and R 4/5, L hip ext 4-/5 and R 4/5, L knee flex 3+/5 and R 4/5, L knee ext 3+/5 and R 4/5). Goal Time Frame: 4-6 Weeks Goal 4:: Be able to walk without an antalgic gait Goal Time Frame: 4-6 Weeks - Rehabilitation Potential Rehabilitation Potential: Good - Anticipated Interventions Patient/Client Instruction: Educate patient on: Condition, Plan of Care For the Purpose of:: To decrease pain, To increase ROM, To improve nutrient delivery to tissue, To improve muscle performance and motor function, To improve ability to perform ADL's, To increase tolerance to activity/condition/position, To improve ability of physical actions for home/community/work/leisure, To improve gait and locomotor functions, To improve health of tissue, To decrease soft tissue restriction, To increase flexibility/ROM Therapeutic Exercise to Include: Strength training, Flexibilty training, Gait and locomotor training, Neuromotor development, Active ROM, Dynamic Lumbar Stabilization For the Purpose of:: To decrease pain, To increase ROM, To improve nutrient delivery to tissue, To improve muscle performance and motor function, To improve ability to perform ADL's, To increase tolerance to activity/condition/position, To improve gait and locomotor functions, To improve health of tissue, To decrease soft tissue restriction, To increase flexibility/ROM Functional Training to Include: Gait training For the Purpose of:: To improve gait and locomotor functions Manual Therapy Techniques to Include: Passive ROM For the Purpose of:: To decrease soft tissue restriction, To increase flexibility/ROM IF ES: Yes Cryotherapy (ice pack, ice massage): Yes For the Purpose of:: To decrease pain, To decrease swelling/inflammation, To increase ROM, To improve nutrient delivery to tissue Thank you for the opportunity to evaluate your patient. For Medicare and Medicare HMO plans, please review the plan of care and approve it. It will need to be FAXED BACK to us at [phone] for Medicare purposes. For Medicare only, by signing this I certify the plan of care. Please let me know if there are questions or concerns regarding this plan of care. Physician Signature: Date:
--- NOTE | 2021-10-27 13:00 | HP.PT.NRP ---
NABIL LIPSCOMB was seen in my office for initial evaluation on 06/08/21. The following Plan of Care was established for this patient: Initial Frequency: 2x /Week Initial Duration: 4 Weeks Patient/Client Instruction: Educate patient on: Condition, Plan of Care For the Purpose of:: To decrease pain, To increase ROM, To improve nutrient delivery to tissue, To improve muscle performance and motor function, To improve ability to perform ADL's, To increase tolerance to activity/condition/position, To improve ability of physical actions for home/community/work/leisure, To improve gait and locomotor functions, To improve health of tissue, To decrease soft tissue restriction, To increase flexibility/ROM Therapeutic Exercise to Include: Strength training, Flexibilty training, Gait and locomotor training, Neuromotor development, Active ROM, Dynamic Lumbar Stabilization For the Purpose of:: To decrease pain, To increase ROM, To improve nutrient delivery to tissue, To improve muscle performance and motor function, To improve ability to perform ADL's, To increase tolerance to activity/condition/position, To improve gait and locomotor functions, To improve health of tissue, To decrease soft tissue restriction, To increase flexibility/ROM Functional Training to Include: Gait training For the Purpose of:: To improve gait and locomotor functions Manual Therapy Techniques to Include: Passive ROM For the Purpose of:: To decrease soft tissue restriction, To increase flexibility/ROM IF ES: Yes Cryotherapy (ice pack, ice massage): Yes For the Purpose of:: To decrease pain, To decrease swelling/inflammation, To increase ROM, To improve nutrient delivery to tissue This patient was last seen in our office 07/27/21. Pertinent comments regarding their Physical therapy will appear below: [facility] At this point I will be discontinuing this patient from physical therapy. I would be happy to see this patient again in the future if found appropriate by the physician. Thank you! Tila Mojica, MPT Balance/Gait/Functional tests - Balance/Special Test Scores Lower Extremity Functional Score: 63
== END 2021-07-27 19:00 | disposition home or self-care (01) ==
LOC: PT 11:00
PROVIDERS: Referring Provider Physician Assistant; Visit Provider Physician Assistant
DX: M22.42 Chondromalacia patellae, left knee (principal); M76.30 Iliotibial band syndrome, unspecified leg
CPT/HCPCS: 97014; 97110; 97161; G0283

== ENCOUNTER 2021-08-19 10:50 | Outpatient (CLI) | payer BC, MEDICAID, SELFPAY ==
--- NOTE | 2021-08-19 10:55 | MRI_ITS ---
STUDY: MRI LEFT KNEE REASON FOR EXAM: Medial knee pain and instability, twisting injury of the left knee in June. TECHNIQUE: Standardized fat and water weighted pulse sequences were obtained in all 3 orthogonal planes. COMPARISON: Radiographs 08/06/2021. FINDINGS: Normal medial meniscus. Normal hyaline cartilage of the medial femorotibial compartment. Normal medial femoral condyle and tibial plateau. Normal medial collateral ligamentous complex (MCL). Normal distal semimembranosus, gracilis and semitendinosus tendons. Normal lateral meniscus. Normal hyaline cartilage of the lateral femorotibial compartment. Normal lateral femoral condyle and tibial plateau. Normal proximal tibiofibular articulation. Normal lateral collateral (fibular) ligament. Normal popliteus tendon. Normal biceps femoris tendon. Normal anterior cruciate ligament (ACL). Normal posterior cruciate ligament (PCL). Normal congruent patellofemoral articulation. Normal hyaline cartilage of the patellofemoral compartment. Normal medial and lateral patellar retinaculum. Normal quadriceps tendon. Normal patellar tendon. Normal Hoffa''s fat pad. There is a very small joint effusion. The soft tissues are unremarkable. The otherwise visualized osseous structures are unremarkable. MRI/Lower Ext Joint Only (Routine) IMPRESSION: Very small joint effusion. No demonstrated meniscal or ligamentous injury. Electronically Signed: Dawson Adan MD at 13:18 EST ,
== END 2021-08-19 23:59 | disposition short-term general hospital (02) ==
LOC: MRI 10:55
PROVIDERS: Referring Provider Physician Assistant; Visit Provider Physician Assistant
DX: M25.562 Pain in left knee (principal); M23.92 Unspecified internal derangement of left knee
CPT/HCPCS: 73721

== ENCOUNTER → 2022-06-21 | Outpatient (CLI) | payer BC, MEDICAID, SELFPAY ==
[2022-07-01 10:27] LABS: HPV Reflexed? NOT INDICATED
== END | disposition home or self-care (01) ==
LOC: LABSPEC 16:41
PROVIDERS: Visit Provider Registered Nurse
DX: Z01.419 Encounter for gynecological examination (general) (routine) without abnormal findings (principal)
CPT/HCPCS: 88175; G0145

== ENCOUNTER → 2022-08-06 | Outpatient (CLI) | payer BC, MEDICAID, SELFPAY ==
[2022-08-06 12:55] LABS: hCG Titer Quant., Serum 21 mIU/mL (1-3)
== END | disposition home or self-care (01) ==
PROVIDERS: Referring Provider Obstetrics & Gynecology; Visit Provider Obstetrics & Gynecology
DX: N91.2 Amenorrhea, unspecified (principal)
CPT/HCPCS: 36415; 84702

== ENCOUNTER → 2022-09-06 | Outpatient (CLI) | payer BC, MEDICAID, SELFPAY ==
[2022-09-08 21:07] LABS: Chlamydia By Nucleic Acid AMP Negative (Negative)
[2022-09-08 21:36] LABS: Gonococcus By Nucleic Acid AMP Negative (Negative)
== END | disposition home or self-care (01) ==
LOC: LABSPEC 14:02
PROVIDERS: Referring Provider Obstetrics & Gynecology; Visit Provider Obstetrics & Gynecology
DX: Z34.90 Encounter for supervision of normal pregnancy, unspecified, unspecified trimester (principal)
CPT/HCPCS: 87491; 87591

== ENCOUNTER 2022-09-17 11:13 | Emergency (ER) | payer BC, MEDICAID, SELFPAY ==
[2022-09-17 11:14] VITALS: BP 121/82; PULSE 98; RESP 22; TEMP 36.3; O2SAT 100; BMI 31.3
--- NOTE | 2022-09-17 11:58 | EDS_ITS ---
HPI HPI - GI History of Present Illness Chief Complaint: Nausea/Vomiting Informant: patient Abdominal Pain/Flank Pain Onset: Days Context: Gradual Onset Timing: Continuous Quality: Aching and Sharp (At times) Location: Epigastric Worsened by: - (Vomiting) Relieved by: Nothing Nausea/Vomiting/Emesis GI Symptom: Positive for Nausea and Vomiting Quality: Positive for Nonbilious; Negative for Blood streaks, Coffee ground or Hematemesis Diarrhea/Melena/Hematochezia GI Symptom: Negative for Diarrhea, Melena or Hematochezia Associated Symptoms Associated Symptoms: Negative for Dysuria, Frequency or Hematuria Narrative Narrative: Patient presents with nausea and vomiting that has been constant for the past several days. Patient states she has been prescribed Zofran, Reglan, and Dramamine which have not been helping. Patient is approximately 10 weeks . Patient denies any diarrhea. Patient denies any hematemesis or coffee-ground emesis. Patient admits to some pain over her upper abdomen. Patient describes it as aching but sharp at times. Patient states it does radiate into her back. Patient denies any fevers but admits to some subjective chills. Patient denies any urinary complaints. Patient denies any abnormal vaginal bleeding or discharge. Patient denies any pelvic cramping. [facility] Medical History Anemia Chondromalacia patellae, left knee Foot pain, left Internal derangement of left knee Left ankle sprain Left knee pain No significant family history No significant medical problems Pap smear to confirm normal after abnormal result Peroneal tendonitis of left lower extremity care and examination Rh negative status during Vaginal delivery Home Medications ondansetron HCl 4 mg tablet 4 mg PO Q4H #120 tabs 09/02/22 [Rx Last Taken Unknown] metoclopramide HCl 10 mg tablet (Reglan) 10 mg PO TID nausea #90 tabs 09/06/22 [Rx Last Taken Unknown] dimenhydrinate 50 mg chewable tablet (Dramamine) 50 mg PO Q8H 09/17/22 [History Last Taken Unknown] Allergy/AdvReac Type Severity Reaction Status Date / Time No Known Allergies Allergy Verified 09/17/22 11:24 Surgical History No significant past surgical history Social History household members: family housing: house number of children: 2 pets and animals: Yes sexually active: No Smoking Status: Never smoker second hand exposure: Yes alcohol intake: current alcohol intake frequency: holidays/special occasions only details: not while substance use type: does not use seatbelt use: always do you feel safe at home: Yes additional social history: Spouse: Jase LARSON ED Constitutional Constitutional ED: Reports chills and subjective; Denies fever(s) Eyes Eyes: Denies blurry vision or change in vision ENT ENT ED: Reports rhinorrhea; Denies sore throat Cardiovascular Cardiovascular: Denies chest pain or palpitations Respiratory/Chest Respiratory/Chest: Denies cough or dyspnea Gastrointestinal Gastrointestinal: Reports abdominal pain, nausea and vomiting; Denies diarrhea Genitourinary Genitourinary ED: Denies dysuria or hematuria Musculoskeletal Musculoskeletal: Reports back pain; Denies neck pain Integumentary Denies abscess or rash Neurologic Neurologic: Reports headache(s); Denies weakness Allergic/Immunologic Allergic/Immunologic ED: Denies mouth swelling or urticaria EXAM Physical Exam Const Vital Signs: 09/17/22 11:14 09/17/22 13:28 Temperature 97.3 F L Temperature Source Temporal Pulse Rate 98 81 Respiratory Rate 22 H 16 Blood Pressure 121/82 H 140/83 H Blood Pressure Mean 95 102 Pulse Ox 100 100 Oxygen Delivery Method Room Air Room Air Positive well nourished, well developed and obese General Appearance ED: well developed and NAD Nutritional Appearance: obese HEENT Reports moist mucous membranes Neck supple and no JVD Resp normal respiratory effort and clear to auscultation bilaterally Cardio regular rate, regular rhythm and no murmurs GI normal to inspection, nondistended, normoactive bowel sounds Palpation: soft and tender epigastric; Negative for guarding or rebound tenderness present Extremity normal to inspection General Extremety ED: Negative for edema or tenderness General Extremity: Negative for edema Neuro oriented x3, CN's II-XII intact bilaterally and no sensory deficits noted Sensorium / Orientation: alert Motor Exam: strength 5/5 throughout Psych mental status grossly normal Skin no rashes or lesions noted MDM MDM MDM Narrative Medical decision making narrative: Differential diagnosis includes gastroenteritis, pancreatitis, hyperemesis gravidarum, peptic ulcer disease, cholecystitis, cholelithiasis, and gastritis. CBC will be obtained to assess for leukocytosis and anemia. Comprehensive metabolic profile will be obtained to assess for electrolyte abnormality, renal function, and hepatic function. Lipase will be obtained to assess for pancreatitis. Serum quantitative hCG will be obtained to assess for status. Lab Data Attestation: I reviewed the patient's lab results. Lab results narrative: CBC was reviewed. There is a mild leukocytosis of 14.5. This is likely due to the . Comprehensive metabolic profile was reviewed. Sodium was slightly low at 133 but was otherwise within normal limits. Lipase was normal at 146. Quantitative hCG was 127,545. Urinalysis was reviewed. There is no evidence of urinary tract infection or hematuria. Labs: Laboratory Results - last 24 hr 09/17/22 09/17/22 09/17/22 12:00 12:00 12:00 WBC 14.5 H RBC 4.59 Hgb 13.1 Hct 40.1 MCV 87.4 MCH 28.5 MCHC 32.7 RDW Std Deviation 43.9 RDW Coeff of Tosin 13.9 Plt Count 256 MPV 10.1 Immature Gran % (Auto) 0.600 Neut % (Auto) 80.7 H Lymph % (Auto) 11.8 L [place] % (Auto) 6.4 Eos % (Auto) 0.3 Baso % (Auto) 0.2 Absolute Neuts (auto) 11.7 H Absolute Lymphs (auto) 1.71 Nucleated RBC % 0 Sodium 133 L Potassium 4.2 Chloride 99 Carbon Dioxide 25.0 Anion Gap 9 BUN 10 Creatinine 0.67 Estim Creat Clear Calc 135.31 Est GFR (MDRD) Af Amer 139 Est GFR (MDRD) Non-Af 115 BUN/Creatinine Ratio 15.0 Glucose 78 Calcium 9.2 Total Bilirubin 0.30 AST 12 L ALT 11 L Alkaline Phosphatase 73 Total Protein 7.4 Albumin 3.3 Globulin 4.1 Albumin/Globulin Ratio 0.8 L Lipase 146 HCG, Quant [id number] H Urine Color Urine Clarity Urine pH Ur Specific [place] Urine Protein Urine Glucose (UA) Urine Ketones Urine Occult Blood Urine Nitrite Urine Bilirubin Urine Urobilinogen Ur Leukocyte Esterase Urine RBC Urine WBC Ur Squamous Epith Cells Amorphous Sediment Urine Bacteria Urine Mucus 09/17/22 12:53 WBC RBC Hgb Hct MCV MCH MCHC RDW Std Deviation RDW Coeff of Tosin Plt Count MPV Immature Gran % (Auto) Neut % (Auto) Lymph % (Auto) [place] % (Auto) Eos % (Auto) Baso % (Auto) Absolute Neuts (auto) Absolute Lymphs (auto) Nucleated RBC % Sodium Potassium Chloride Carbon Dioxide Anion Gap BUN Creatinine Estim Creat Clear Calc Est GFR (MDRD) Af Amer Est GFR (MDRD) Non-Af BUN/Creatinine Ratio Glucose Calcium Total Bilirubin AST ALT Alkaline Phosphatase Total Protein Albumin Globulin Albumin/Globulin Ratio Lipase HCG, Quant Urine Color Yellow Urine Clarity Sl. Cloudy Urine pH 7.0 Ur Specific [place] 1.010 Urine Protein Negative Urine Glucose (UA) Normal Urine Ketones Negative Urine Occult Blood Negative Urine Nitrite Negative Urine Bilirubin Negative Urine Urobilinogen Normal Ur Leukocyte Esterase 100 H Urine RBC 0 SEEN Urine WBC 0-5 SEEN Ur Squamous Epith Cells 5-10 SEEN Amorphous Sediment 2+ Urine Bacteria 2+ Urine Mucus 0 SEEN Differential Diagnosis Abdominal Pain: Appendicitis Reason(s) appendicitis less likely: Positive for clinical exam does not supportclinical exam does not support, Cholecystitis, Pancreatitis, Bowel obstruction Reason(s) bowel obstruction less likely: bowel sounds present on exam and UTI Reason(s) UTI less likely: clinical exam does not support Treatment and Re-Evaluation :: Patient was given IV fluids and Phenergan here. Patient is feeling better on reevaluation. Patient was given a prescription for Phenergan. Patient was instructed to stop taking the Dramamine if she was going to take the Phenergan since they are both antihistamines. Patient was instructed to start with small sips of fluids and advance her diet as tolerated. Patient was instructed to follow-up with her LABOR RELATIONS SPECIALIST in 3 to 5 days. Patient was instructed return if worse in any way. Patient understood and was agreeable with the plan. All questions were answered. Discharge Plan Triage Chief Complaint: Nausea/Vomiting Other Complaint: Abd Pain ED Provider: Gonzalo Aguirre Dx/Rx/DC Orders Clinical Impression: Nausea and vomiting, Instructions: ED Vomiting (Adult) Prescriptions: No Action metoclopramide HCl [Reglan] 10 mg tablet 10 mg PO TID Qty: 90 3RF Dramamine 50 mg tablet,chewable 50 mg PO Q8H ondansetron HCl 4 mg tablet 4 mg PO Q4H Qty: 120 3RF Primary Care Provider: Care Physician,No Primary Referrals: Care Physician,No Primary [Primary Care Provider] - 5-7 Days Disposition Disposition: Home, Self Care
[2022-09-17] MEDS: proMETHazine 25 MG/ML Syringe 12.5 MG IM (12:06)
[2022-09-17] MEDS: 0.9% Normal Saline 1,000 ML 1000 ML IV (12:06)
[2022-09-17 12:09] LABS: Absolute Lymphocyte Count 1.71 X10^3/uL (0.83-4.51); Absolute Neutrophil Count 11.7 X10^3/uL (2.0-7.7); Basophil# 0.03 X10^3/uL; Basophil% 0.2 % (0-1); Eosinophil# 0.04 X10^3/uL; Eosinophils% 0.3 % (0-5); Hematocrit 40.1 % (37-47); Hemoglobin 13.1 g/dL (12.0-15.0); Lymphocyte # 1.71 X10^3/ul (0.83-4.51); Lymphocyte % 11.8 % (19-41); Mean Corp Hgb Conc 32.7 g/dL (32-36); Mean Corpuscular Hgb 28.5 pg (27.0-32.0); Mean Corpuscular Volume 87.4 fL (81-99); Mean Platelet Vol. 10.1 fl (6.2-12.0); Monocyte# 0.92 X10^3/uL; Monocyte% 6.4 % (0-10); NRBC Flagged by Analyzer 0 % (0-5); Neutrophil # 11.69 X10^3/uL (2.7-7.7); Neutrophil % 80.7 % (47-70); Platelet Count 256 K/mm3 (150-450); RBC Distribution Width CV 13.9 % (11.6-14.6); RBC Distribution Width SD 43.9 fl (35.1-43.9); Red Blood Count 4.59 M/mm3 (4.2-5.4); White Blood Count 14.5 K/mm3 (4.4-11.0)
[2022-09-17 12:28] LABS: ALB/GLOB Ratio 0.8 RATIO (0.9-2.4); AST(SGOT) 12 U/L (15-37); Alanine Aminotransfer ALT/SGPT 11 U/L (13-56); Albumin, Serum 3.3 g/dL (3.2-5.0); Alkaline Phosphatase 73 U/L (45-117); Anion Gap 9 (5-15); BUN 10 mg/dL (7-18); Calcium,Total 9.2 mg/dL (8.5-10.1); Chloride 99 mmol/L (98-107); Creatinine, Serum 0.67 mg/dL (0.55-1.02); EST Glomerular Filtration Rate 115 mL/min (>60); Est Glom Filt Rate - Afr Amer 139 mL/min (>60); Estimated Creatinine Clearance 135.31 ml/min; Globulin 4.1 g/dL (2.2-4.2); Glucose 78 mg/dL (74-106); Lipase 146 U/L (73-393); Potassium 4.2 mmol/L (3.5-5.1); Protein, Total 7.4 g/dL (6.4-8.2); Sodium Level 133 mmol/L (136-145)
[2022-09-17 13:02] LABS: Mucous, Urine 0 SEEN /hpf (<or=2+); Red Blood Cells-Urine 0 SEEN /hpf (0-5)
[2022-09-17 13:08] LABS: Color, Urine Yellow (Yellow); Glucose, Dipstick Normal (Normal); Ketone-Dipstick Negative (Negative); Leukocyte Esterase-Dipstick 100 /ul (Negative); Nitrite-Dipstick Negative (Negative); Occult Blood-Urine Negative /ul (Negative); Protein-Dipstick Negative (Negative); Urine Bilirubin Dipstick Negative (Negative); Urine Clarity Sl. Cloudy (Clear); Urine Urobilinogen Normal (Normal)
[2022-09-17 13:17] LABS: Amorphous Sediment 2+; Bacteria 2+ /hpf (None Seen); Squamous Epithelial Cells - UA 5-10 SEEN /hpf (5-10); White Blood Cells 0-5 SEEN /hpf (0-5)
[2022-09-17 13:28] VITALS: BP 140/83; PULSE 81; RESP 16; O2SAT 100
[2022-09-17 13:56] VITALS: BP 135/81; PULSE 82; RESP 17; O2SAT 100
--- NOTE | 2022-09-17 13:57 | ED.RN ---
IV DC SITE INTACT. PT SKIN P/W/D.
== END 2022-09-17 14:02 | disposition home or self-care (01) ==
PROVIDERS: Emergency Provider Emergency Medicine; Visit Provider Emergency Medicine
DX: O21.9 Vomiting of pregnancy, unspecified (principal); O99.211 Obesity complicating pregnancy, first trimester; Z3A.10 10 weeks gestation of pregnancy
CPT/HCPCS: 80053; 81001; 83690; 84702; 85025; 96360; 96372; 99283; J7030; A4216

== ENCOUNTER → 2022-10-06 | Outpatient (CLI) | payer BC, MEDICAID, SELFPAY ==
[2022-10-06 12:03] LABS: Absolute Lymphocyte Count 2.01 X10^3/uL (0.83-4.51); Absolute Neutrophil Count 7.4 X10^3/uL (2.0-7.7); Basophil# 0.04 X10^3/uL; Basophil% 0.4 % (0-1); Lymphocyte # 2.01 X10^3/ul (0.83-4.51); Lymphocyte % 19.5 % (19-41); Mean Corp Hgb Conc 32.5 g/dL (32-36); Mean Corpuscular Hgb 28.8 pg (27.0-32.0); Mean Corpuscular Volume 88.7 fL (81-99); Mean Platelet Vol. 9.8 fl (6.2-12.0); Monocyte% 6.8 % (0-10); NRBC Flagged by Analyzer 0 % (0-5); Neutrophil # 7.43 X10^3/uL (2.7-7.7); Platelet Count 284 K/mm3 (150-450); RBC Distribution Width CV 14.4 % (11.6-14.6); RBC Distribution Width SD 46.5 fl (35.1-43.9); Red Blood Count 4.51 M/mm3 (4.2-5.4); White Blood Count 10.3 K/mm3 (4.4-11.0)
[2022-10-06 12:50] LABS: NATERA MAILED SPECIMEN
[2022-10-06 12:59] LABS: HIV - WCH Non-Reactive (Nonreactive); Hepatitis B Surface Antigen Non-Reactive (Nonreactive); Hepatitis C Antibody Non-Reactive (Nonreactive); Rubella IgG Reactive (Nonreactive); Syphilis Antibodies Non-reactive
== END | disposition home or self-care (01) ==
PROVIDERS: Referring Provider Obstetrics & Gynecology; Visit Provider Obstetrics & Gynecology
DX: Z34.90 Encounter for supervision of normal pregnancy, unspecified, unspecified trimester (principal)
CPT/HCPCS: 36415; 85025; 86703; 86762; 86780; 86803; 86850; 86900; 86901; 87340

== ENCOUNTER 2022-10-16 16:22 | Emergency (ER) | payer BC, MEDICAID, SELFPAY ==
[2022-10-16 16:23] VITALS: BP 122/76; PULSE 143; RESP 14; TEMP 36.6; O2SAT 97; BMI 31.6
--- NOTE | 2022-10-16 16:35 | ED.VIS.GI ---
HPI HPI - GI History of Present Illness Chief Complaint: Abd Pain Detail of Chief Complaint: Abdominal pain Informant: patient Narrative Narrative: Patient presents with vomiting and abdominal pain since last evening around 8 PM. Patient states that she has been thrown up at least once an hour. She complains of pain mostly to the right lower abdomen. Patient is currently with twins and she is about 15 weeks along. She denies vaginal bleeding. She denies urinary symptoms. She denies diarrhea. She eating undercooked food or suspicious food. Denies sick contacts. PFSH PFSH Medical History Anemia Chondromalacia patellae, left knee Foot pain, left Internal derangement of left knee Left ankle sprain Left knee pain No significant family history No significant medical problems Pap smear to confirm normal after abnormal result Peroneal tendonitis of left lower extremity care and examination Rh negative status during Vaginal delivery Home Medications ondansetron 4 mg disintegrating tablet 4 mg PO Q8H PRN PRN Nausea #10 tabs 10/16/22 [Rx Last Taken Unknown] Allergy/AdvReac Type Severity Reaction Status Date / Time No Known Allergies Allergy Verified 10/16/22 16:23 Surgical History No significant past surgical history Social History household members: family housing: house number of children: 2 pets and animals: Yes sexually active: No Smoking Status: Never smoker second hand exposure: Yes alcohol intake: current alcohol intake frequency: holidays/special occasions only details: not while substance use type: does not use seatbelt use: always do you feel safe at home: Yes additional social history: Spouse: Jase NEO LARSON ED Review of Systems ROS Unobtainable: other Constitutional Constitutional ED: Reports lethargy; Denies chills, fever(s), sweats or weight loss Eyes Eyes: Denies blurry vision, change in vision or diplopia ENT ENT ED: Denies rhinorrhea or sore throat Cardiovascular Cardiovascular: Reports chest pain and racing heartbeat; Denies orthopnea Respiratory/Chest Respiratory/Chest: Denies cough, dyspnea, dyspnea on exertion, orthopnea or sputum Gastrointestinal Gastrointestinal: Reports abdominal pain, nausea and vomiting; Denies diarrhea Genitourinary Genitourinary ED: Denies dysuria, hematuria or urinary frequency Musculoskeletal Musculoskeletal: Denies arthralgias, back pain, myalgias or neck pain Integumentary Denies abscess, Abrasions or rash Neurologic Neurologic: Denies headache(s) or weakness Psychiatric Psychiatric: Denies anxiety, depression or suicidal thoughts Endocrine Endocrinology: Denies polydipsia, polyphagia or polyuria Hematologic/Lymphatic Hematologic/Lymphatic: Denies easy bleeding, easy bruising or lymphadenopathy Allergic/Immunologic Allergic/Immunologic ED: Denies mouth swelling, tongue swelling or urticaria EXAM Physical Exam Const Vital Signs: 10/16/22 16:23 Temperature 98 F Temperature Source Temporal Pulse Rate 143 H Respiratory Rate 14 Blood Pressure 122/76 H Blood Pressure Mean 91 Pulse Ox 97 Oxygen Delivery Method Room Air Positive well nourished and well developed General Appearance ED: well developed and NAD HEENT Reports TM's clear and moist mucous membranes normocephalic and atraumatic; Negative for trauma or tenderness Tympanic Membrane ED: Yes TM's clear Eyes PERRL and EOMs intact bilaterally General Eye ED: Negative for pale conjunctiva or scleral icterus Neck no lymphadenopathy, supple and no JVD General: Negative for tenderness Chest Wall inspection of chest normal and palpation of chest normal Chest: Negative for tenderness Resp normal respiratory effort and clear to auscultation bilaterally Effort and Inspection: Negative for respiratory distress or pain with movement Auscultation: Negative for rhonchi, wheezes or diminished lung sounds Cardio regular rate, regular rhythm, S1 normal heart sound, S2 normal heart sound and no murmurs Peripheral Pulses: pulses 2+ throughout GI normal to inspection, nondistended, normoactive bowel sounds, soft to palpation, non-distended and no masses GI Narrative: Patient with tenderness to palpation over the right lower quadrant with guarding. No rebound or rigidity noted. Patient has a gravid uterus with fundal height about 5 cm below umbilicus. Back/Spine no CVA tenderness and no thoracic nor lumbar tenderness Extremity normal to inspection General Extremety ED: Negative for edema General Extremity: Negative for edema Neuro oriented x3, CN's II-XII intact bilaterally, no sensory deficits noted and gait normal Sensorium / Orientation: awake, alert, oriented to person, oriented to place and oriented to time Motor Exam: strength 5/5 throughout and strength abnormal Psych mental status grossly normal Skin no rashes or lesions noted and no wounds MDM MDM MDM Narrative Medical decision making narrative: IV line established. Patient was given Zofran 4 mg IV. She was given a liter mostly of fluid bolus. CBC with differential showed a white count 9.2 and a hemoglobin of 14 hematocrit 41 and platelets 255. Patient had 83% neutrophils. Chemistries unremarkable. LFTs were normal. Urinalysis without signs of infection. Given the right lower quadrant pain and vomiting without diarrhea was concerned about appendicitis. I discussed case with her TE[employer]RA[employer] TE[employer] Dr. Hallman and we obtained a CT scan of the abdomen pelvis with IV and p.o. contrast which was negative for acute appendicitis or other acute disease process. Patient has had no further vomiting in the department. We will obtain heart tones and discharge patient to home. Etiology of vomiting unclear I suspect possibly of viral etiology. Lab Data Attestation: I reviewed the patient's lab results. Labs: Laboratory Results - last 24 hr 10/16/22 10/16/22 10/16/22 16:45 16:45 18:13 WBC 9.2 RBC 4.77 Hgb 13.7 Hct 41.2 MCV 86.4 MCH 28.7 MCHC 33.3 RDW Std Deviation 46.5 H RDW Coeff of Tosin 14.7 H Plt Count 255 MPV 9.7 Immature Gran % (Auto) 0.400 Neut % (Auto) 82.8 H Lymph % (Auto) 11.[address] [place] % (Auto) 5.3 Eos % (Auto) 0.0 Baso % (Auto) 0.2 Absolute Neuts (auto) 7.6 Absolute Lymphs (auto) 1.04 Nucleated RBC % 0 Sodium 134 L Potassium 3.6 Chloride 103 Carbon Dioxide 21.0 Anion Gap 10 BUN 10 Creatinine 0.76 Estim Creat Clear Calc 119.29 Est GFR (MDRD) Af Amer 120 Est GFR (MDRD) Non-Af 99 BUN/Creatinine Ratio 13.2 Glucose 101 Calcium 9.1 Total Bilirubin 0.50 AST 11 L ALT 13 Alkaline Phosphatase 65 Total Protein 7.1 Albumin 2.9 L Globulin 4.2 Albumin/Globulin Ratio 0.7 L Urine Color Yellow Urine Clarity Sl. Cloudy Urine pH 5.0 Ur Specific [place] 1.025 Urine Protein 15 H Urine Glucose (UA) Normal Urine Ketones 150 A* Urine Occult Blood Negative Urine Nitrite Negative Urine Bilirubin 1 H Urine Urobilinogen Normal Ur Leukocyte Esterase 25 H Urine RBC 0 SEEN Urine WBC 5-10 SEEN Ur Squamous Epith Cells 5-10 SEEN Urine Bacteria 1+ Urine Mucus 0 SEEN Radiography Diagnostic Testing: Clinical Impression(s) from Imaging Studies Abdomen/Pelvis CT 10/16/22 18:45 IMPRESSION: (NOT LISTED IN ORDER OF SIGNIFICANCE) The appendix is visualized and appears unremarkable. Other findings as above. Electronically Signed: Wyatt Castillo MD at 19:05 EDT Reading Location ID and State: [facility] / [place] , Service support , Discharge Plan Triage Chief Complaint: Abd Pain ED Provider: Karli Calvin Dx/Rx/DC Orders Clinical Impression: Vomiting, , Abdominal pain Instructions: ED Abdominal Pain Unkn Cause Fem, ED Vomiting (Adult) Prescriptions: New ondansetron [ondansetron] 4 mg tablet,disintegrating 4 mg PO Q8H PRN PRN (Reason: Nausea) Qty: 10 0RF Primary Care Provider: Care Physician,No Primary Referrals: Shari Hallman MD [Med Staff - Active Staff] - 3-5 Days Care Physician,No Primary [Primary Care Provider] - Disposition Disposition: Home, Self Care
[2022-10-16] MEDS: Ondansetron 4 MG/2 ML Vial IV (16:48)
[2022-10-16] MEDS: 0.9% Normal Saline 1,000 ML 125 ML IV (16:48)
[2022-10-16 16:52] LABS: Absolute Lymphocyte Count 1.04 X10^3/uL (0.83-4.51); Absolute Neutrophil Count 7.6 X10^3/uL (2.0-7.7); Basophil# 0.02 X10^3/uL; Basophil% 0.2 % (0-1); Hematocrit 41.2 % (37-47); Hemoglobin 13.7 g/dL (12.0-15.0); Lymphocyte # 1.04 X10^3/ul (0.83-4.51); Lymphocyte % 11.3 % (19-41); Mean Corp Hgb Conc 33.3 g/dL (32-36); Mean Corpuscular Hgb 28.7 pg (27.0-32.0); Mean Corpuscular Volume 86.4 fL (81-99); Mean Platelet Vol. 9.7 fl (6.2-12.0); Monocyte# 0.49 X10^3/uL; Monocyte% 5.3 % (0-10); NRBC Flagged by Analyzer 0 % (0-5); Neutrophil % 82.8 % (47-70); Platelet Count 255 K/mm3 (150-450); RBC Distribution Width CV 14.7 % (11.6-14.6); RBC Distribution Width SD 46.5 fl (35.1-43.9); Red Blood Count 4.77 M/mm3 (4.2-5.4); White Blood Count 9.2 K/mm3 (4.4-11.0)
[2022-10-16 17:10] LABS: ALB/GLOB Ratio 0.7 RATIO (0.9-2.4); AST(SGOT) 11 U/L (15-37); Alanine Aminotransfer ALT/SGPT 13 U/L (13-56); Albumin, Serum 2.9 g/dL (3.2-5.0); Alkaline Phosphatase 65 U/L (45-117); Anion Gap 10 (5-15); BUN 10 mg/dL (7-18); BUN/Creat Ratio 13.2 RATIO (10-20); Calcium,Total 9.1 mg/dL (8.5-10.1); Chloride 103 mmol/L (98-107); Creatinine, Serum 0.76 mg/dL (0.55-1.02); EST Glomerular Filtration Rate 99 mL/min (>60); Est Glom Filt Rate - Afr Amer 120 mL/min (>60); Estimated Creatinine Clearance 119.29 ml/min; Globulin 4.2 g/dL (2.2-4.2); Glucose 101 mg/dL (74-106); Potassium 3.6 mmol/L (3.5-5.1); Protein, Total 7.1 g/dL (6.4-8.2); Sodium Level 134 mmol/L (136-145)
[2022-10-16 18:22] LABS: Mucous, Urine 0 SEEN /hpf (<or=2+); Red Blood Cells-Urine 0 SEEN /hpf (0-5)
[2022-10-16 18:30] LABS: Color, Urine Yellow (Yellow); Glucose, Dipstick Normal (Normal); Leukocyte Esterase-Dipstick 25 /ul (Negative); Nitrite-Dipstick Negative (Negative); Occult Blood-Urine Negative /ul (Negative); Protein-Dipstick 15 mg/dl (Negative); Specific Gravity, Urine 1.025 (1.002-1.030); Urine Clarity Sl. Cloudy (Clear); Urine Urobilinogen Normal (Normal)
[2022-10-16 18:35] LABS: Urine Bilirubin Dipstick 1 mg/dL (Negative)
[2022-10-16 18:36] LABS: Ketone-Dipstick 150 mg/dl (Negative)
[2022-10-16 18:39] LABS: Bacteria 1+ /hpf (None Seen); Squamous Epithelial Cells - UA 5-10 SEEN /hpf (5-10); White Blood Cells 5-10 SEEN /hpf (0-5)
--- NOTE | 2022-10-16 18:45 | CT_ITS ---
STUDY: CT Abdomen And Pelvis W/ Contrast Injection 10/16/2022 7:02 PM REASON FOR EXAM: Female, 22 years old. ABDOMINAL PAIN right lower quadrant abdominal pain -- IV PO Contrast TECHNIQUE: Transaxial images were obtained with oral contrast, and with Oral and amp; IV Gastrografin and amp; 100mL Isovue-370 intravenous contrast. Individualized dose optimization techniques were used for this CT. COMPARISON: None. FINDINGS: The visualized lung bases are unremarkable. The visualized portions of the heart are within normal limits. Unremarkable liver. Unremarkable gallbladder and extrahepatic biliary system. Unremarkable spleen. Unremarkable pancreas. Unremarkable bilateral adrenal glands. No acute findings of the right kidney. No acute findings of the left kidney. Unremarkable visualized stomach. Unremarkable small intestine. Unremarkable colon. The appendix is visualized and appears unremarkable. There are no acute findings of the abdominal aorta. Unremarkable inferior vena cava. Subcentimeter mesenteric lymph nodes. Unremarkable urinary bladder. Enlarged gravid uterus. There is an umbilical hernia containing fat. Unremarkable osseous structures. CT/Abdomen/Pelvis WITH Contrast IMPRESSION: (NOT LISTED IN ORDER OF SIGNIFICANCE) The appendix is visualized and appears unremarkable. Other findings as above. Electronically Signed: Wyatt Castillo MD at 19:05 EDT ,
[2022-10-16 20:22] VITALS: PULSE 78; RESP 18; O2SAT 100
--- NOTE | 2022-10-16 20:31 | ED.RN ---
HEART TONES OBTAINED BY OB NURSE
== END 2022-10-16 20:47 | disposition home or self-care (01) ==
PROVIDERS: Emergency Provider Emergency Medicine; Visit Provider Emergency Medicine
DX: O21.9 Vomiting of pregnancy, unspecified (principal); O99.891 Other specified diseases and conditions complicating pregnancy; R10.30 Lower abdominal pain, unspecified; Z3A.15 15 weeks gestation of pregnancy
CPT/HCPCS: 74177; 80053; 81001; 85025; 96361; 96374; 99283; J7030; Q9967; A4216; J2405

== ENCOUNTER 2023-01-16 19:37 | Outpatient (CLI) | payer BC, MEDICAID, SELFPAY ==
[2023-01-16 19:43] VITALS: BMI 36.7
[2023-01-16 19:58] VITALS: TEMP 36.9
[2023-01-16 19:59] VITALS: BP 126/80; PULSE 103
[2023-01-16] MEDS: Mag Hydrox/Al Hydrox/Simeth 30 ML UDC PO (20:18)
[2023-01-16] MEDS: Acetaminophen 500 MG Tablet 1000 MG PO (20:29)
[2023-01-16] MEDS: Famotidine 20 MG Tablet PO (20:30)
[2023-01-16 20:33] LABS: Color, Urine Yellow (Yellow); Glucose, Dipstick Normal (Normal); Ketone-Dipstick Negative (Negative); Leukocyte Esterase-Dipstick 25 /ul (Negative); Nitrite-Dipstick Negative (Negative); Occult Blood-Urine Negative /ul (Negative); Protein-Dipstick Negative (Negative); Urine Bilirubin Dipstick Negative (Negative); Urine Clarity Sl. Cloudy (Clear); Urine Urobilinogen Normal (Normal)
--- NOTE | 2023-02-03 09:23 | OB.TRI.HP_ITS ---
HPI - General General Date of Admission: 01/16/23 Date of Service: 01/16/23 HPI Narrative NABIL MEJIA, is a 22 y/o @ 27 weeks 2 days who presents to L&D with some cramping. no lof, vaginal bleeding. She is with twins currently (mono/di) Maternal Data Information DERICK Calculator Estimated Delivery Date Method Current WG Current Estimate 04/15/23 Manual 29w 6d per MFM US Other Estimates 04/26/23 LMP (Certain) 28w 2d # 2 PFSH PFSH Medical History Anemia Chondromalacia patellae, left knee Foot pain, left Internal derangement of left knee Left ankle sprain Left knee pain No significant family history No significant medical problems Pap smear to confirm normal after abnormal result Peroneal tendonitis of left lower extremity care and examination Rh negative status during Vaginal delivery Home Medications famotidine 20 mg tablet (Pepcid) 20 mg PO Q12H #60 tabs 11/01/22 [Rx Last Taken Unknown] ondansetron 4 mg disintegrating tablet 4 mg PO Q8H PRN PRN Nausea #60 tabs 11/10/22 [Rx Last Taken Unknown] Allergy/AdvReac Type Severity Reaction Status Date / Time No Known Allergies Allergy Verified 02/01/23 13:23 Surgical History No significant past surgical history Social History household members: family housing: house number of children: 2 pets and animals: Yes sexually active: No Smoking Status: Never smoker second hand exposure: Yes alcohol intake: current alcohol intake frequency: holidays/special occasions only details: not while substance use type: does not use seatbelt use: always do you feel safe at home: Yes additional social history: Spouse: Jase History 3 Elective abortions 0 Hx Para 2 Spontaneous abortions 0 Hx # Term Pregnancies 1 Ectopic pregnancies 0 Hx # Pregnancies 1 Multiple births # of living children 2 Past Pregnancies Del. Date Name GA/Weeks Outcome Route Bth Weight Gen Labor Lgth Anesthesia Del Locatn Provider FOB 02/29/20 Tia 36 live - 6lbs 9oz Female 13 romero rs epidural [facility] in [place], [place] Dr. Mckinley 05/02/21 Alexsandra 39 live - full term Female [facility] Dr. Lexx Brothers Delivery Date: 02/29/20 Last Updated by: Concha Lopez PROM Delivery Date: 05/02/21 Last Updated by: Regina Vela COVID Visit Details Expected Delivery Route/Plan LTCS and BS Labor Preferences- CB/BF classes: [] labor support person: [] labor intervention preferences: [] pain management options preferred: [] cut cord/dad catch: [] : [] PP control planned: [] discussed possible routes of delivery and associated risks: [] special requests: [] Plans Covid status: Flu vaccine: [] Tdap vaccine: [] Rhogam: [] LARC form signed: [] Problem list reviewed and updated with the most current plan of care details and appropriate orders placed. Relevant counseling for the gestational age provided. Continue routine care and follow up unless otherwise noted in visit notes/problem list details OB Flowsheet Initial Weight: Not Recorded Date -?-?-?-?-?-?-?-?-?-?-?-?- EGA Weight BP Urine Prot -?-?-?-?-?-?-?-?-?-?-?-?- Glucose FHR FuHt Pres Dilation -?-?-?-?-?-?-?-?-?-?-?-?- Effaced St Visit Note 09/06/22 -?-?-?-?-?-?-?-?-?-?--?-?- 8w 3d 210 lb 118/75 -?-?-?-?-?-?-?-?-?-?-?-?- A 170 -?-?-?-?-?-?-?-?-?-?-?-?- B 170 A -?-?-?-?-?-?-?-?-?-?-?-?- B -?-?-?-?-?-?-?-?-?-?-?-?- A -?-?-?-?-?-?-?-?-?-?-?-?- B A SM- 1 GS but ear ly secon sacs around each pole seen, with 2 poles one measuring 7w3d the other 8w3d both with FHT present 170. subchorionic hematoma present -?-?-?-?-?-?-?-?-?-?-?-?- B 10/06/22 -?-?-?-?-?-?-?-?-?-?-?-?- 12w 5d 215 lb 2 oz 119/80 -?-?-?-?-?--?-?-?-?-?-?-?- A 176 -?-?-?-?-?-?-?-?-?-?-?-?- B 165 A -?-?-?-?-?-?-?-?-?-?-?-?- B -?-?-?-?-?-?-?-?-?-?-?-?- A -?-?-?-?-?-?-?-?-?-?-?-?- B A JV- mono/di twin s- has follow up with mfm in 2 weeks to determine chorionicity. then q2 weeks for ASPEN and q 2-4 weeks for growth. NIPT ordered today. -?-?-?-?-?-?-?-?-?-?-?-?- B 11/01/22 -?-?-?-?-?-?-?-?-?-?-?-?- 16w 3d 221 lb 4 oz 121/81 Nega tive -?-?-?-?-?-?-?-?-?-?-?-?- Negative A 135 -?-?-?-?-?-?-?-?-?-?-?-?- B 150 A -?-?-?-?-?-?-?-?-?-?-?-?- B -?-?-?-?-?-?-?-?-?-?-?-?- A -?-?-?-?-?-?-?-?-?-?-?-?- B A SM- no vb crampi ng feeling better, anatomy US scheduled -?-?-?-?-?-?-?-?-?-?-?-?- B 11/29/22 -?-?-?-?-?-?-?-?-?-?-?-?- 20w 3d 233 lb 4 oz 103/76 -?-?-?-?-?-?-?-?-?-?-?-?- A 145 -?-?-?-?-?-?-?-?-?-?-?-?- B 145 A -?-?-?-?-?-?-?-?-?-?-?-?- B -?-?-?-?-?-?-?-?-?-?-?-?- A -?-?-?-?-?-?-?-?-?-?-?-?- B A SM- no vb diana flower doin well US q 2 weeks, patient states due date changed by MFM to 04/15/23 -?-?-?-?-?-?-?-?-?-?-?-?- B 01/04/23 -?-?-?-?-?-?-?-?-?-?-?-?- 25w 4d 246 lb 8 oz 111/78 -?-?-?-?-?-?-?-?-?-?-?-?- A 139 -?-?-?-?-?-?-?-?-?-?-?-?- B 143 A [place] -?-?-?-?-?-?-?-?-?-?-?-?- B [place] -?-?-?-?-?-?-?-?-?-?-?-?- A -?-?-?-?-?-?-?-?-?-?-?-?- B A JV- growth yeste rday showed adequate concordant growth JV- growth yesterday. showed adequate . concordant growth. wants tubal ligation and has caresource for secondary insurance. will need title 19 -?-?-?-?-?-?-?-?-?-?-?-?- B 01/21/23 -?-?-?-?-?-?-?-?-?-?-?-?- 28w 0d 251 lb 4 oz 118/70 Nega tive -?-?-?-?-?-?-?-?-?-?-?-?- Negative A 145 -?-?-?-?-?-?-?-?-?-?-?-?- B 140 A Cephalic -?-?-?-?-?-?-?-?-?-?-?-?- B Cephalic -?-?-?-?-?-?-?-?-?-?-?-?- A -?-?-?-?-?-?-?-?-?-?-?-?- B A SM- no vb lof go od fm x 2 no regular ctx, desires LTCS and BS, title 19 signed. -?-?-?-?-?-?-?-?-?-?-?-?- B 02/01/23 -?-?-?-?-?-?-?-?-?-?-?-?- 29w 4d 251 lb 6 oz 111/76 Trac e -?-?-?-?-?-?-?-?-?-?-?-?- Negative A 150 -?-?-?-?-?-?-?-?-?-?-?-?- B 155 A Cephalic -?-?-?-?-?-?-?-?-?-?-?-?- B Cephalic -?-?-?-?-?-?-?-?-?-?-?-?- A -?-?-?-?-?-?-?-?-?-?-?-?- B A SM- no vb lof go od fm no regular ctx -?-?-?--?-?-?-?-?-?-?-?-?- B ROS Constitutional Constitutional: Reports systems reviewed and no addt'l complaints, except as documented Gastrointestinal Gastrointestinal: Denies bloating, constipation, cramping, diarrhea, nausea or vomiting Genitourinary Genitourinary: Reports other Details: Denies vaginal odor, vaginal bleeding, or vaginal discharge ; Denies difficulty urinating or flank pain NST FHR Rate Baby A Baseline: 140 Variability:: Moderate Accelerations:: 15 x 15 Decelerations:: None NST Reactive:: Yes FHR Category:: Category I FHR Rate Baby B Baseline: 135 Variability:: Moderate Accelerations:: 15 x 15 and 10 x 10 Decelerations:: None FHR Category:: Category I Assessment & Plan (1) Cerebral ventriculomegaly of fetus: COMMENT: both infants-mild, with out macrocephaly. following with [facility] (2) Contraception management: COMMENT: signed title 19 for request for salpingectomy (3) Supervision of high-risk : COMMENT: PRR DERICK 04/15/23 boys Krystian Guillen Lexi. Spouse-Jase (lorraine) (4) Monochorionic diamniotic twin gestation: COMMENT: echo completed, MRI ordered, Eval for twin to twin transfusion q2 weeks as well as fluid level Q2 wks 13% discordance Growth US q4 weekly NST starting at 32 weeks Deliver at 37 weeks [facility] recommends peds cardio follow up after but no indication why. 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 neg. 254/254 (6) Obesity affecting : COMMENT: 1 tm GCT normal, encouraged healthy weight gain. (7) Rh negative status during : QUALIFIERS: Trimester: second trimester Qualified Code(s): O26.892 - Other specified related conditions, second trimester; Z67.91 - Unspecified blood type, Rh negative COMMENT: Rhogam at 28 weeks and prn, given 01/21/23 (8) : QUALIFIERS: Weeks of gestation: 30 weeks Qualified Code(s): Z3A.30 - 30 weeks gestation of COMMENT: NIPT low risk and carrier done in past., nl anatomy of mono/di twins. tdap given (9) Threatened labor: PLAN: no cervical dilation and no contractions on the monitor. pt reassured. reactive nsts follow up in office in one week. ua pending Charges/Coding Multi Select Codes Urinary/Genital Urinary/Genital CPT Codes: 64650-82 non-stress test Interp
== END 2023-01-16 22:00 | disposition home or self-care (01) ==
LOC: WPOUT 19:40 → WP 19:41
PROVIDERS: Visit Provider Obstetrics & Gynecology
DX: O47.02 False labor before 37 completed weeks of gestation, second trimester (principal); O99.212 Obesity complicating pregnancy, second trimester; Z3A.27 27 weeks gestation of pregnancy
CPT/HCPCS: 59025; 59050; 81002; 99221; G0378

== ENCOUNTER → 2023-01-21 | Outpatient (CLI) | payer BC, MEDICAID, SELFPAY ==
[2023-01-21 13:34] LABS: Basophil# 0.03 X10^3/uL; Basophil% 0.3 % (0-1); Eosinophil# 0.07 X10^3/uL; Eosinophils% 0.7 % (0-5); Hematocrit 31.4 % (37-47); Hemoglobin 10.2 g/dL (12.0-15.0); Lymphocyte % 21.8 % (19-41); Mean Corp Hgb Conc 32.5 g/dL (32-36); Mean Corpuscular Volume 86.3 fL (81-99); Mean Platelet Vol. 10.8 fl (6.2-12.0); Monocyte% 6.9 % (0-10); NRBC Flagged by Analyzer 0 % (0-5); Neutrophil # 6.95 X10^3/uL (2.7-7.7); Platelet Count 231 K/mm3 (150-450); RBC Distribution Width CV 13.8 % (11.6-14.6); RBC Distribution Width SD 42.8 fl (35.1-43.9); Red Blood Count 3.64 M/mm3 (4.2-5.4); White Blood Count 10.1 K/mm3 (4.4-11.0)
[2023-01-21 13:53] LABS: Glucose Challenge Gest 1H 50g 125 mg/dL (70-140)
[2023-01-21 14:24] LABS: HIV - WCH Non-Reactive (Nonreactive); Syphilis Antibodies Non-reactive
== END | disposition home or self-care (01) ==
LOC: LAB 12:52
PROVIDERS: Obstetrics & Gynecology; Referring Provider Obstetrics & Gynecology; Visit Provider Obstetrics & Gynecology
DX: O26.892 Other specified pregnancy related conditions, second trimester (principal); Z67.91 Unspecified blood type, Rh negative; Z3A.00 Weeks of gestation of pregnancy not specified
CPT/HCPCS: 36415; 82950; 85025; 86703; 86780; 86850; 86900; 86901

== ENCOUNTER 2023-02-14 15:18 | Outpatient (CLI) | payer BC, MEDICAID, SELFPAY ==
[2023-02-14 15:31] VITALS: BMI 37.6
[2023-02-14 15:33] VITALS: BP 119/76; PULSE 101; O2SAT 97
--- NOTE | 2023-02-15 08:07 | OB.TRI.HP_ITS ---
HPI - General HPI Narrative NABIL MEJIA, is a 22 F who presents at 31.2 for mono di twin NST Maternal Data Information DERICK Calculator Estimated Delivery Date Method Current WG Current Estimate 04/15/23 Manual 31w 4d per MFM US Other Estimates 04/26/23 LMP (Certain) 30w 0d # 2 PFSH PFSH Medical History Anemia Chondromalacia patellae, left knee Foot pain, left Internal derangement of left knee Left ankle sprain Left knee pain No significant family history No significant medical problems Pap smear to confirm normal after abnormal result Peroneal tendonitis of left lower extremity care and examination Rh negative status during Vaginal delivery Home Medications famotidine 20 mg tablet (Pepcid) 20 mg PO Q12H #60 tabs 11/01/22 [Rx Last Taken Unknown] Allergy/AdvReac Type Severity Reaction Status Date / Time No Known Allergies Allergy Verified 02/14/23 16:35 Surgical History No significant past surgical history Social History household members: family housing: house number of children: 2 pets and animals: Yes sexually active: No Smoking Status: Never smoker second hand exposure: Yes alcohol intake: current alcohol intake frequency: holidays/special occasions only details: not while substance use type: does not use seatbelt use: always do you feel safe at home: Yes additional social history: Spouse: Jase History 3 Elective abortions 0 Hx Para 2 Spontaneous abortions 0 Hx # Term Pregnancies 1 Ectopic pregnancies 0 Hx # Pregnancies 1 Multiple births # of living children 2 Past Pregnancies Del. Date Name GA/Weeks Outcome Route Bth Weight Infant Gen Labor Lgth Anesthesia Del Locatn Provider FOB 02/29/20 Tia 36 live - 6lbs 9oz Female 13 romero rs epidural [facility] in [place], [place] Dr. Mckinley 05/02/21 Alexsandra 39 live - full term Female [facility] Dr. Lexx Brothers Delivery Date: 02/29/20 Last Updated by: Concha Lopez PROM Delivery Date: 05/02/21 Last Updated by: Regina Vela COVID Visit Details Expected Delivery Route/Plan LTCS and BS Labor Preferences- CB/BF classes: [] labor support person: [] labor intervention preferences: [] pain management options preferred: [] cut cord/dad catch: [] : [] PP control planned: [] discussed possible routes of delivery and associated risks: [] special requests: [] Plans Covid status: Flu vaccine: [] Tdap vaccine: [] Rhogam: [] LARC form signed: [] Problem list reviewed and updated with the most current plan of care details and appropriate orders placed. Relevant counseling for the gestational age provided. Continue routine care and follow up unless otherwise noted in visit notes/problem list details OB Flowsheet Initial Weight: Not Recorded Date -?-?-?-?-?-?-?-?-?-?-?-?- EGA Weight BP Urine Prot -?-?-?-?-?-?-?-?-?-?-?-?- Glucose FHR FuHt Pres Dilation -?-?-?-?-?-?-?-?-?-?-?-?- Effaced St Visit Note 09/06/22 -?-?-?-?-?-?-?-?-?-?-?-?- 8w 3d 210 lb 118/75 -?-?-?-?-?-?-?-?-?-?-?-?- A 170 -?-?-?-?-?-?-?-?-?-?-?-?- B 170 A -?-?-?-?-?-?-?-?-?-?-?-?- B -?-?-?-?-?-?-?-?-?-?-?-?- A -?-?-?-?-?-?-?-?-?-?-?-?- B A SM- 1 GS but ear ly secon sacs around each pole seen, with 2 poles one measuring 7w3d the other 8w3d both with FHT present 170. subchorionic hematoma present -?-?-?-?-?-?-?-?-?-?-?-?- B 10/06/22 -?-?-?-?-?-?-?-?-?-?-?-?- 12w 5d 215 lb 2 oz 119/80 -?-?-?-?-?-?-?-?-?-?-?-?- A 176 -?-?-?-?-?-?-?-?-?-?-?-?- B 165 A -?-?-?-?-?-?-?-?-?-?-?-?- B -?-?-?-?-?-?-?-?-?-?-?-?- A -?-?-?-?-?-?-?-?-?-?-?-?- B A JV- mono/di twin s- has follow up with mfm in 2 weeks to determine chorionicity. then q2 weeks for ASPEN and q 2-4 weeks for growth. NIPT ordered today. -?-?-?-?-?-?-?-?-?-?-?-?- B 11/01/22 -?-?-?-?-?-?-?-?-?-?-?-?- 16w 3d 221 lb 4 oz 121/81 Nega tive -?-?-?-?-?-?-?-?--?-?-?-?- Negative A 135 -?-?-?-?-?-?-?-?-?-?-?-?- B 150 A -?-?-?-?-?-?-?-?-?-?-?-?- B -?-?-?-?-?-?-?-?-?-?-?-?- A -?-?-?-?-?-?--?-?-?-?-?-?- B A SM- no vb crampi ng feeling better, anatomy US scheduled -?-?-?-?-?-?-?-?-?-?-?-?- B 11/29/22 -?-?-?-?-?-?-?-?-?-?-?-?- 20w 3d 233 lb 4 oz 103/76 -?-?-?-?-?-?-?-?-?-?-?-?- A 145 -?-?-?-?-?-?-?-?-?-?-?-?- B 145 A -?-?-?-?-?-?-?-?-?-?-?-?- B -?-?-?-?-?-?-?-?-?-?-?-?- A -?-?-?-?-?-?-?-?-?-?-?-?- B A SM- no vb crampi ng doin well US q 2 weeks, patient states due date changed by MFM to 04/15/23 -?-?-?-?-?-?-?-?-?-?-?-?- B 01/04/23 -?-?-?-?-?-?-?-?-?-?-?-?- 25w 4d 246 lb 8 oz 111/78 -?-?-?-?-?-?-?-?-?-?-?-?- A 139 -?-?-?-?-?-?-?-?-?-?-?-?- B 143 A Breech -?-?-?-?--?-?-?-?-?-?-?-?- B Breech -?-?-?-?-?-?-?-?-?-?-?-?- A -?-?-?-?-?-?-?-?-?-?-?-?- B A JV- growth yeste rday showed adequate concordant growth JV- growth yesterday. showed adequate . concordant growth. wants tubal ligation and has caresource for secondary insurance. will need title 19 -?-?-?-?-?-?-?-?-?-?-?-?- B 01/21/23 -?-?-?-?-?--?-?-?-?-?-?-?- 28w 0d 251 lb 4 oz 118/70 Nega tive -?-?-?-?-?-?-?-?-?-?-?-?- Negative A 145 -?-?-?-?-?-?-?-?-?-?-?-?- B 140 A Cephalic -?--?-?-?-?-?-?-?-?-?-?-?- B Cephalic -?-?-?-?-?-?-?-?-?-?-?-?- A -?-?-?-?-?-?-?-?-?-?-?-?- B A SM- no vb lof go od fm x 2 no regular ctx, desires LTCS and BS, title 19 signed. -?-?-?-?-?-?-?-?-?-?-?-?- B 02/01/23 -?-?-?-?-?-?-?-?-?-?-?-?- 29w 4d 251 lb 6 oz 111/76 Trac e -?-?-?-?-?-?-?-?-?-?-?-?- Negative A 150 -?-?-?-?-?-?-?-?-?-?-?-?- B 155 A Cephalic -?-?-?-?-?-?-?-?-?-?-?-?- B Cephalic -?-?-?-?-?-?-?-?-?-?-?-?- A -?-?-?-?-?-?-?-?-?-?-?-?- B A SM- no vb lof go od fm no regular ctx -?-?-?-?-?-?-?-?-?-?-?-?- B NST FHR Rate Baby A Baseline: 140 Variability:: Moderate Accelerations:: 15 x 15 Decelerations:: None NST Reactive:: Yes FHR Category:: Category I FHR Rate Baby B Baseline: 125 Variability:: Moderate Accelerations:: 15 x 15 Decelerations:: None NST Reactive:: Yes FHR Category:: Category I Assessment & Plan (1) Cerebral ventriculomegaly of fetus: COMMENT: both infants-mild, with out macrocephaly. following with mfm (2) Supervision of high-risk : COMMENT: PRR DERICK 04/15/23 boys Krystian Guillen, Alexsandra. Spouse-Jase (lorraine) (3) Monochorionic diamniotic twin gestation: COMMENT: echo completed, MRI ordered, Eval for twin to twin transfusion q2 weeks as well as fluid level Q2 wks 13% discordance Growth US q4 weekly NST starting at 32 weeks Deliver at 37 weeks mfm recommends peds cardio follow up after but no indication why. RLTCS BS scheduled for 03/25 @ 7:30 with JV (4) Obesity affecting : COMMENT: 1 tm GCT normal, encouraged healthy weight gain. (5) : QUALIFIERS: Weeks of gestation: 31 weeks Qualified Code(s): Z3A.31 - 31 weeks gestation of COMMENT: NIPT low risk and carrier done in past., nl anatomy of mono/di twins. tdap given PLAN: Plan Patient presents for triage evaluation secondary to twin NST FHT: Moderate variability reactive no decelerations category I tracing Hardesty: no Contractions Assessment and plan: Reactive NST, reassuring maternal and status patient discharged to home to follow-up in office. See problem list details for additional plan information. Charges/Coding Procedures Urinary/Genital [id number]: 00960-17 non-stress test Interp
== END 2023-02-14 16:05 | disposition home or self-care (01) ==
LOC: WPOUT 15:24 → WP 15:24
PROVIDERS: Referring Provider Obstetrics & Gynecology; Visit Provider Obstetrics & Gynecology
DX: O30.003 Twin pregnancy, unspecified number of placenta and unspecified number of amniotic sacs, third trimester (principal); O99.213 Obesity complicating pregnancy, third trimester; Z3A.30 30 weeks gestation of pregnancy
CPT/HCPCS: 59025; 59050; 99221; G0378

== ENCOUNTER 2023-02-21 14:00 | Outpatient (CLI) | payer BC, MEDICAID, SELFPAY ==
[2023-02-21 14:00] VITALS: BMI 42.0
[2023-02-21 14:25] VITALS: BP 126/78; PULSE 111; TEMP 36.4; O2SAT 93; O2SAT 97
--- NOTE | 2023-02-21 16:28 | OB.TRI.HP_ITS ---
HPI - General HPI Narrative NABIL MEJIA, is a 22 F who presents at 32.3 for NST for mono/di twin with cerebral ventriculomegaly. Maternal Data Information DERICK Calculator Estimated Delivery Date Method Current WG Current Estimate 04/15/23 Manual 32w 3d per MFM US Other Estimates 04/26/23 LMP (Certain) 30w 6d # 2 PFSH PFSH Medical History Anemia Chondromalacia patellae, left knee Foot pain, left Internal derangement of left knee Left ankle sprain Left knee pain No significant family history No significant medical problems Pap smear to confirm normal after abnormal result Peroneal tendonitis of left lower extremity care and examination Rh negative status during Vaginal delivery Home Medications famotidine 20 mg tablet (Pepcid) 20 mg PO Q12H #60 tabs 11/01/22 [Rx Last Taken Unknown] Allergy/AdvReac Type Severity Reaction Status Date / Time No Known Allergies Allergy Verified 02/21/23 13:10 Surgical History No significant past surgical history Social History household members: family housing: house number of children: 2 pets and animals: Yes sexually active: No Smoking Status: Never smoker second hand exposure: Yes alcohol intake: current alcohol intake frequency: holidays/special occasions only details: not while substance use type: does not use seatbelt use: always do you feel safe at home: Yes additional social history: Spouse: Jase History 3 Elective abortions 0 Hx Para 2 Spontaneous abortions 0 Hx # Term Pregnancies 1 Ectopic pregnancies 0 Hx # Pregnancies 1 Multiple births # of living children 2 Past Pregnancies Del. Date Name GA/Weeks Outcome Route Bth Weight Infant Gen Labor Lgth Anes t hesia Del Locatn Provider FOB 02/29/20 Tia 36 live - 6lbs 9oz Female 13 romero rs epidural [facility] in [place], [place] Dr. Mckinley 05/02/21 Alexsandra 39 live - full term Female [facility] Dr. Lexx Brothers Delivery Date: 02/29/20 Last Updated by: Concha Lopez PROM Delivery Date: 05/02/21 Last Updated by: Regina Vela COVID Visit Details Expected Delivery Route/Plan LTCS and BS Labor Preferences- CB/BF classes: [] labor support person: [] labor intervention preferences: [] pain management options preferred: [] cut cord/dad catch: [] : [] PP control planned: [] discussed possible routes of delivery and associated risks: [] special requests: [] Plans Covid status: Flu vaccine: [] Tdap vaccine: [] Rhogam: [] LARC form signed: [] Problem list reviewed and updated with the most current plan of care details and appropriate orders placed. Relevant counseling for the gestational age provided. Continue routine care and follow up unless otherwise noted in visit notes/problem list details OB Flowsheet Initial Weight: Not Recorded Date -?-?-?-?-?-?-?-?-?--?-?-?- EGA Weight BP Urine Prot -?-?-?-?-?-?-?-?-?-?-?-?- Glucose FHR FuHt Pres Dilation -?-?-?-?-?-?-?-?-?-?-?-?- Effaced St Visit Note 09/06/22 -?-?-?-?-?-?-?-?-?-?-?-?- 8w 3d 210 lb 118/75 -?-?-?-?-?-?-?-?-?-?-?-?- A 170 -?-?-?-?-?-?-?-?-?-?-?-?- B 170 A -?-?-?-?-?-?-?-?-?-?-?-?- B -?-?-?-?-?-?-?-?-?-?-?-?- A -?-?-?-?-?-?-?-?-?-?-?-?- B A SM- 1 GS but ear ly secon sacs around each pole seen, with 2 poles one measuring 7w3d the other 8w3d both with FHT present 170. subchorionic hematoma present -?-?-?-?-?-?-?-?-?-?-?-?- B 10/06/22 -?-?-?-?-?-?-?-?-?-?-?-?- 12w 5d 215 lb 2 oz 119/80 -?-?-?-?-?-?-?-?-?-?-?-?- A 176 -?-?-?-?-?-?-?-?-?-?-?-?- B 165 A -?-?-?-?-?-?-?-?-?-?-?-?- B -?-?-?-?-?-?-?-?-?-?-?-?- A -?-?-?-?-?-?-?-?-?-?-?-?- B A JV- mono/di twin s- has follow up with mfm in 2 weeks to determine chorionicity. then q2 weeks for ASPEN and q 2-4 weeks for growth. NIPT ordered today. -?-?-?-?-?-?-?-?-?-?-?-?- B 11/01/22 -?-?-?-?-?-?-?-?-?-?-?-?- 16w 3d 221 lb 4 oz 121/81 Nega tive -?-?-?-?-?-?-?-?-?-?-?-?- Negative A 135 -?-?-?-?-?-?-?-?-?-?-?-?- B 150 A -?-?-?-?-?-?-?-?-?-?-?-?- B -?-?-?-?-?-?-?--?-?-?-?-?- A -?-?-?-?-?-?-?-?-?-?-?-?- B A SM- no vb crampi ng feeling better, anatomy US scheduled -?-?-?-?-?-?-?-?-?-?-?-?- B 11/29/22 -?-?-?-?--?-?-?-?-?-?-?-?- 20w 3d 233 lb 4 oz 103/76 -?-?-?-?-?-?-?-?-?-?-?-?- A 145 -?-?-?-?-?-?-?-?-?-?-?-?- B 145 A -?-?-?-?-?-?-?-?-?-?-?-?- B -?-?-?-?-?-?-?-?-?-?-?-?- A -?-?-?-?-?-?-?-?-?-?-?-?- B A SM- no vb diana flower doin well US q 2 weeks, patient states due date changed by MFM to 04/15/23 -?-?-?-?-?-?-?-?-?-?-?-?- B 01/04/23 -?-?-?-?-?-?-?-?-?-?-?-?- 25w 4d 246 lb 8 oz 111/78 -?-?-?-?-?-?-?-?-?-?-?-?- A 139 -?-?-?-?-?-?-?-?-?-?-?-?- B 143 A Breech -?-?-?-?-?-?-?-?-?-?-?-?- B Breech -?-?-?-?-?-?-?-?-?-?-?-?- A -?-?-?-?-?-?-?-?-?-?-?-?- B A JV- growth yeste rday showed adequate concordant growth JV- growth yesterday. showed adequate . concordant growth. wants tubal ligation and has caresource for secondary insurance. will need title 19 -?-?-?-?-?-?-?-?-?-?-?-?- B 01/21/23 -?-?-?-?-?-?-?-?-?-?-?-?- 28w 0d 251 lb 4 oz 118/70 Nega boaz -?-?-?-?-?-?-?-?-?-?-?-?- Negative A 145 -?-?-?-?-?-?-?-?-?-?-?-?- B 140 A Cephalic -?-?-?-?-?-?-?-?-?-?-?-?- B Cephalic -?-?-?-?-?-?-?-?-?-?-?-?- A -?-?-?-?-?-?-?-?-?-?-?-?- B A SM- no vb lof go od fm x 2 no regular ctx, desires LTCS and BS, title 19 signed. -?-?-?-?-?-?-?-?-?-?-?-?- B 02/01/23 -?-?-?-?-?-?-?-?-?-?-?-?- 29w 4d 251 lb 6 oz 111/76 Trac e -?-?-?-?-?-?-?-?-?-?-?-?- Negative A 150 -?-?-?-?-?-?-?-?-?-?-?-?- B 155 A Cephalic -?-?-?-?-?-?-?-?-?-?-?-?- B Cephalic -?-?-?-?-?-?-?-?-?-?-?-?- A -?-?-?-?-?-?-?-?-?-?-?-?- B A SM- no vb lof go od fm no regular ctx -?-?-?-?-?-?-?-?-?-?-?-?- B 02/14/23 -?-?-?-?-?-?-?-?-?-?-?-?- 31w 3d 255 lb 6 oz 119/78 Nega tive -?-?-?-?-?-?-?-?-?-?-?-?- Negative A 140 -?-?-?-?-?-?-?-?-?-?-?-?- B 150 A -?-?-?-?-?-?-?-?-?-?-?-?- B -?-?-?-?-?-?-?-?-?-?-?-?- A -?-?-?-?-?-?-?-?-?-?-?-?- B A SM- no vb lof go od fm no regular ctx just doc soto -?-?-?-?-?-?-?-?-?-?-?-?- B 02/21/23 -?-?-?-?-?-?-?-?-?-?-?-?- 32w 3d 254 lb 115/75 -?-?-?-?-?-?-?-?-?-?-?-?- A 140 -?-?-?-?-?-?-?-?-?-?-?-?- B 145 A Cephalic -?-?-?-?-?-?-?-?-?-?-?-?- B Cephalic -?-?-?-?-?-?-?-?-?-?-?-?- A -?-?-?-?-?-?-?-?-?-?-?-?- B A SM- no vb lof go od fm x 2 no regualr ctx -?-?-?-?-?-?-?-?-?-?-?-?- B NST FHR Rate Baby A Baseline: 130-140 Variability:: Moderate Accelerations:: 15 x 15 Decelerations:: None NST Reactive:: Yes FHR Category:: Category I Uterine Activity:: irreg FHR Rate Baby B Baseline: 130-145 Variability:: Moderate Accelerations:: 15 x 15 Decelerations:: None NST Reactive:: Yes FHR Category:: Category I Uterine Activity:: irreg Assessment & Plan (1) Cerebral ventriculomegaly of fetus: COMMENT: both infants-mild, with out macrocephaly. following with mfm (2) Contraception management: COMMENT: signed title 19 for request for salpingectomy (3) Supervision of high-risk : COMMENT: PRR DERICK 04/15/23 boys Wilmer Krystian PC Pina, Alexsandra. 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 neg. 254/254 (5) Obesity affecting : COMMENT: 1 tm GCT normal, encouraged healthy weight gain. (6) Rh negative status during : QUALIFIERS: Trimester: second trimester Qualified Code(s): O26.892 - Other specified related conditions, second trimester; Z67.91 - Unspecified blood type, Rh negative COMMENT: Rhogam at 28 weeks and prn, given 01/21/23 (7) : QUALIFIERS: Weeks of gestation: 32 weeks Qualified Code(s): Z3A.32 - 32 weeks gestation of COMMENT: NIPT low risk and carrier done in past., nl anatomy of mono/di twins. tdap given PLAN: Plan Patient presents for triage evaluation secondary to NST for mono/di high risk twin FHT: Moderate variability reactive no decelerations category I tracing Rawson: irregular Contractions Assessment and plan: Reactive NST, reassuring maternal and status patient discharged to home to follow-up in office/PRN. See problem list details for additional plan information. Charges/Coding Procedures Urinary/Genital [id number]: 10806-57 non-stress test Interp
--- NOTE | 2023-02-21 16:28 | OB.TRI.NOTE ---
HPI - General HPI Narrative NABIL MEJIA, is a 22 F who presents at 32.3 for NST for mono/di twin with cerebral ventriculomegaly. Maternal Data Information DERICK Calculator Estimated Delivery Date Method Current WG Current Estimate 04/15/23 Manual 32w 3d per MFM US Other Estimates 04/26/23 LMP (Certain) 30w 6d # 2 PFSH PFSH Medical History Anemia Chondromalacia patellae, left knee Foot pain, left Internal derangement of left knee Left ankle sprain Left knee pain No significant family history No significant medical problems Pap smear to confirm normal after abnormal result Peroneal tendonitis of left lower extremity care and examination Rh negative status during Vaginal delivery Home Medications famotidine 20 mg tablet (Pepcid) 20 mg PO Q12H #60 tabs 11/01/22 [Rx Last Taken Unknown] Allergy/AdvReac Type Severity Reaction Status Date / Time No Known Allergies Allergy Verified 02/21/23 13:10 Surgical History No significant past surgical history Social History household members: family housing: house number of children: 2 pets and animals: Yes sexually active: No Smoking Status: Never smoker second hand exposure: Yes alcohol intake: current alcohol intake frequency: holidays/special occasions only details: not while substance use type: does not use seatbelt use: always do you feel safe at home: Yes additional social history: Spouse: Jase History 3 Elective abortions 0 Hx Para 2 Spontaneous abortions 0 Hx # Term Pregnancies 1 Ectopic pregnancies 0 Hx # Pregnancies 1 Multiple births # of living children 2 Past Pregnancies Del. Date Name GA/Weeks Outcome Route Bth Weight Infant Gen Labor Lgth Anesthesia Del Locatn Provider FOB 02/29/20 Tia 36 live - 6lbs 9oz Female 13 hours epidural [facility] in [place], [place] Dr. Mckilney 05/02/21 Alexsandra 39 live - full term Female [facility] Dr. Lexx Brothers Delivery Date: 02/29/20 Last Updated by: Concha Lopez PROM Delivery Date: 05/02/21 Last Updated by: Regina Vela COVID Visit Details Expected Delivery Route/Plan LTCS and BS Labor Preferences- CB/BF classes: [] labor support person: [] labor intervention preferences: [] pain management options preferred: [] cut cord/dad catch: [] : [] PP control planned: [] discussed possible routes of delivery and associated risks: [] special requests: [] Plans Covid status: Flu vaccine: [] Tdap vaccine: [] Rhogam: [] LARC form signed: [] Problem list reviewed and updated with the most current plan of care details and appropriate orders placed. Relevant counseling for the gestational age provided. Continue routine care and follow up unless otherwise noted in visit notes/problem list details OB Flowsheet Initial Weight: Not Recorded Date <del>?</del> EGA Weight BP Urine Prot <del>?</del> Glucose FHR FuHt Pres Dilation <del>?</del> Effaced St Visit Note 09/06/22 <del>?</del> 8w 3d 210 lb 118/75 <del>?</del> A 170 <del>?</del> B 170 A <del>?</del> B <del>?</del> A <del>?</del> B A SM- 1 GS but early secon sacs around each pole seen, with 2 poles one measuring 7w3d the other 8w3d both with FHT present 170. subchorionic hematoma present <del>?</del> B 10/06/22 <del>?</del> 12w 5d 215 lb 2 oz 119/80 <del>?</del> A 176 <del>?</del> B 165 A <del>?</del> B <del>?</del> A <del>?</del> B A JV- mono/di twins- has follow up with mfm in 2 weeks to determine chorionicity. then q2 weeks for ASPEN and q 2-4 weeks for growth. NIPT ordered today. <del>?</del> B 11/01/22 <del>?</del> 16w 3d 221 lb 4 oz 121/81 Negative <del>?</del> Negative A 135 <del>?</del> B 150 A <del>?</del> B <del>?</del> A <del>?</del> B A SM- no vb cramping feeling better, anatomy US scheduled <del>?</del> B 11/29/22 <del>?</del> 20w 3d 233 lb 4 oz 103/76 <del>?</del> A 145 <del>?</del> B 145 A <del>?</del> B <del>?</del> A <del>?</del> B A SM- no vb cramping doin well US q 2 weeks, patient states due date changed by MFM to 04/15/23 <del>?</del> B 01/04/23 <del>?</del> 25w 4d 246 lb 8 oz 111/78 <del>?</del> A 139 <del>?</del> B 143 A Breech <del>?</del> B Breech <del>?</del> A <del>?</del> B A JV- growth yesterday showed adequate concordant growth JV- growth yesterday. showed adequate . concordant growth. wants tubal ligation and has caresource for secondary insurance. will need title 19 <del>?</del> B 01/21/23 <del>?</del> 28w 0d 251 lb 4 oz 118/70 Negative <del>?</del> Negative A 145 <del>?</del> B 140 A Cephalic <del>?</del> B Cephalic <del>?</del> A <del>?</del> B A SM- no vb lof good fm x 2 no regular ctx, desires LTCS and BS, title 19 signed. <del>?</del> B 02/01/23 <del>?</del> 29w 4d 251 lb 6 oz 111/76 Trace <del>?</del> Negative A 150 <del>?</del> B 155 A Cephalic <del>?</del> B Cephalic <del>?</del> A <del>?</del> B A SM- no vb lof good fm no regular ctx <del>?</del> B 02/14/23 <del>?</del> 31w 3d 255 lb 6 oz 119/78 Negative <del>?</del> Negative A 140 <del>?</del> B 150 A <del>?</del> B <del>?</del> A <del>?</del> B A SM- no vb lof good fm no regular ctx just doc soto <del>?</del> B 02/21/23 <del>?</del> 32w 3d 254 lb 115/75 <del>?</del> A 140 <del>?</del> B 145 A Cephalic <del>?</del> B Cephalic <del>?</del> A <del>?</del> B A SM- no vb lof good fm x 2 no regualr ctx <del>?</del> B NST FHR Rate Baby A Baseline: 130-140 Variability:: Moderate Accelerations:: 15 x 15 Decelerations:: None NST Reactive:: Yes FHR Category:: Category I Uterine Activity:: irreg FHR Rate Baby B Baseline: 130-145 Variability:: Moderate Accelerations:: 15 x 15 Decelerations:: None NST Reactive:: Yes FHR Category:: Category I Uterine Activity:: irreg Assessment & Plan (1) Cerebral ventriculomegaly of fetus: COMMENT: both infants-mild, with out macrocephaly. following with mfm (2) Contraception management: COMMENT: signed title 19 for request for salpingectomy (3) Supervision of high-risk : COMMENT: PRR DERICK 04/15/23 boys Krystian Guillen Lexi. 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 neg. 254/254 (5) Obesity affecting : COMMENT: 1 tm GCT normal, encouraged healthy weight gain. (6) Rh negative status during : QUALIFIERS: Trimester: second trimester Qualified Code(s): O26.892 - Other specified related conditions, second trimester; Z67.91 - Unspecified blood type, Rh negative COMMENT: Rhogam at 28 weeks and prn, given 01/21/23 (7) : QUALIFIERS: Weeks of gestation: 32 weeks Qualified Code(s): Z3A.32 - 32 weeks gestation of COMMENT: NIPT low risk and carrier done in past., nl anatomy of mono/di twins. tdap given PLAN: Plan Patient presents for triage evaluation secondary to NST for mono/di high risk twin FHT: Moderate variability reactive no decelerations category I tracing [place]: irregular Contractions Assessment and plan: Reactive NST, reassuring maternal and status patient discharged to home to follow-up in office/PRN. See problem list details for additional plan information. Charges/Coding Procedures Urinary/Genital [id number]: 12932-01 non-stress test Interp
== END 2023-02-21 15:20 | disposition home or self-care (01) ==
LOC: WPOUT 14:06 → WP 14:06
PROVIDERS: Referring Provider Registered Nurse; Visit Provider Registered Nurse
DX: O30.033 Twin pregnancy, monochorionic/diamniotic, third trimester (principal); Z3A.32 32 weeks gestation of pregnancy; O99.353 Diseases of the nervous system complicating pregnancy, third trimester; G93.89 Other specified disorders of brain
CPT/HCPCS: 59025; 59050; 99221; G0378

== ENCOUNTER 2023-02-23 07:35 | Outpatient (CLI) | payer BC, MEDICAID, SELFPAY ==
[2023-02-23] VITALS (8 sets, daily range): BP systolic 121–141; BP diastolic 71–83; PULSE 93–123; TEMP 36.8; O2SAT 95–97; BMI 37.3
[2023-02-23] MEDS: Lactated Ringers 1,000 ML 200 ML IV (08:45)
[2023-02-23] MEDS: NIFEdipine 10 MG Capsule PO ×3 (08:49→09:13)
--- NOTE | 2023-02-23 09:03 | OB.TRI.HP_ITS ---
HPI - General HPI Narrative NABIL MEJIA, is a 22 y/o @ 32 weeks 5 days who presents to L&D breathing through contractions at times and other times sitting comfortably. Her called L&D an hour ago and stated that she was unable to talk on the phone because she was in too much pain and the last time she was like this she delivered the baby. SHe is with mono/di twins that are vtx/vtx and both babies have mild ventriculomegaly. Our expanded function dental assistant here is recommending that we consider transporting before delivery. Maternal Data Information DERICK Calculator Estimated Delivery Date Method Current WG Current Estimate 04/15/23 Manual 32w 5d per MFM US Other Estimates 04/26/23 LMP (Certain) 31w 1d # 2 PFSH PFSH Medical History Anemia Chondromalacia patellae, left knee Foot pain, left Internal derangement of left knee Left ankle sprain Left knee pain No significant family history No significant medical problems Pap smear to confirm normal after abnormal result Peroneal tendonitis of left lower extremity care and examination Rh negative status during Vaginal delivery Home Medications famotidine 20 mg tablet (Pepcid) 20 mg PO Q12H #60 tabs 11/01/22 [Rx Last Taken 02/22/23 21:00 20 mg] Allergy/AdvReac Type Severity Reaction Status Date / Time No Known Allergies Allergy Verified 02/23/23 08:09 Surgical History No significant past surgical history Social History household members: family housing: house number of children: 2 pets and animals: Yes sexually active: No Smoking Status: Never smoker second hand exposure: Yes alcohol intake: current alcohol intake frequency: holidays/special occasions only details: not while substance use type: does not use seatbelt use: always do you feel safe at home: Yes additional social history: Spouse: Jase History 3 Elective abortions 0 Hx Para 2 Spontaneous abortions 0 Hx # Term Pregnancies 1 Ectopic pregnancies 0 Hx # Pregnancies 1 Multiple births # of living children 2 Past Pregnancies Del. Date Name GA/Weeks Outcome Route Bth Weight Infant Gen Labor Lgth Anesthesia Del Locatn Provider FOB 02/29/20 Tia 36 live - 6lbs 9oz Female 13 romero rs epidural [facility] in [place], [place] Dr. Mckinley 05/02/21 Alexsandra 39 live - full term Female [facility] Dr. Lexx Brothers Delivery Date: 02/29/20 Last Updated by: Concha Lopez PROM Delivery Date: 05/02/21 Last Updated by: Regina Vela COVID Visit Details Expected Delivery Route/Plan LTCS and BS Labor Preferences- CB/BF classes: [] labor support person: [] labor intervention preferences: [] pain management options preferred: [] cut cord/dad catch: [] : [] PP control planned: [] discussed possible routes of delivery and associated risks: [] special requests: [] Plans Covid status: Flu vaccine: [] Tdap vaccine: [] Rhogam: [] LARC form signed: [] Problem list reviewed and updated with the most current plan of care details and appropriate orders placed. Relevant counseling for the gestational age provided. Continue routine care and follow up unless otherwise noted in visit notes/problem list details OB Flowsheet Initial Weight: Not Recorded Date -?-?-?-?--?-?-?-?-?-?-?-?- EGA Weight BP Urine Prot -?-?-?-?-?-?-?-?-?-?-?-?- Glucose FHR FuHt Pres Dilation -?-?-?-?-?-?-?-?-?-?-?-?- Effaced St Visit Note 09/06/22 -?-?-?-?-?-?-?-?-?-?-?-?- 8w 3d 210 lb 118/75 -?-?-?-?-?-?-?-?-?-?-?-?- A 170 -?-?-?-?-?-?-?-?-?-?-?-?- B 170 A -?-?-?-?-?-?-?-?-?-?-?-?- B -?-?-?-?-?-?-?-?-?-?-?-?- A -?-?-?-?-?-?-?-?-?-?-?-?- B A SM- 1 GS but ear ly secon sacs around each pole seen, with 2 poles one measuring 7w3d the other 8w3d both with FHT present 170. subchorionic hematoma present -?-?-?-?-?-?-?-?-?-?-?-?- B 10/06/22 -?-?-?-?-?-?-?-?-?-?-?-?- 12w 5d 215 lb 2 oz 119/80 -?-?-?-?-?-?-?-?-?-?-?-?- A 176 -?-?-?-?-?-?-?-?-?-?-?-?- B 165 A -?-?-?-?-?-?-?-?-?-?-?-?- B -?-?-?-?-?-?-?-?-?-?-?-?- A -?-?-?-?-?-?-?-?-?-?-?-?- B A JV- mono/di twin s- has follow up with mfm in 2 weeks to determine chorionicity. then q2 weeks for ASPEN and q 2-4 weeks for growth. NIPT ordered today. -?-?-?-?-?-?-?-?-?-?-?-?- B 11/01/22 -?-?-?-?-?-?-?-?-?-?-?-?- 16w 3d 221 lb 4 oz 121/81 Nega tive -?-?-?-?-?-?-?-?-?-?-?-?- Negative A 135 -?-?-?-?-?-?-?-?-?-?-?-?- B 150 A -?-?-?-?-?-?-?-?-?-?-?-?- B -?-?--?-?-?-?-?-?-?-?-?-?- A -?-?-?-?-?-?-?-?-?-?-?-?- B A SM- no vb essiempi ng feeling better, anatomy US scheduled -?-?-?-?-?-?-?-?-?-?-?-?- B 11/29/22 -?-?-?-?-?-?-?-?-?-?-?-?- 20w 3d 233 lb 4 oz 103/76 -?-?-?-?-?-?-?-?-?-?-?-?- A 145 -?-?-?-?-?-?-?-?-?-?-?-?- B 145 A -?-?-?-?-?-?-?-?-?-?-?-?- B -?-?-?-?-?-?-?-?-?-?-?-?- A -?-?-?-?-?-?-?-?-?-?-?-?- B A SM- no vb diana flower doin well US q 2 weeks, patient states due date changed by MFM to 04/15/23 -?-?-?-?-?-?-?-?-?-?-?-?- B 01/04/23 -?-?-?-?-?-?-?-?-?-?-?-?- 25w 4d 246 lb 8 oz 111/78 -?-?-?-?-?-?-?-?-?-?-?-?- A 139 -?-?-?-?-?-?-?-?-?-?-?-?- B 143 A Breech -?-?-?-?-?-?-?-?-?-?-?-?- B Breech -?-?-?-?-?-?-?-?-?-?-?-?- A -?-?-?-?-?-?-?-?-?-?-?-?- B A JV- growth yeste rday showed adequate concordant growth JV- growth yesterday. showed adequate . concordant growth. wants tubal ligation and has caresource for secondary insurance. will need title 19 -?-?-?-?-?-?-?-?-?--?-?-?- B 01/21/23 -?-?-?-?-?-?-?-?-?-?-?-?- 28w 0d 251 lb 4 oz 118/70 Nega tive -?-?-?-?-?-?-?-?-?-?-?-?- Negative A 145 -?-?-?-?-?-?-?-?-?-?-?-?- B 140 A Cephalic -?-?-?-?-?-?-?-?-?-?-?-?- B Cephalic -?-?-?-?-?-?-?-?-?-?-?-?- A -?-?-?-?-?-?-?-?-?-?-?-?- B A SM- no vb lof go od fm x 2 no regular ctx, desires LTCS and BS, title 19 signed. -?-?-?-?-?-?-?-?-?-?-?-?- B 02/01/23 -?-?-?-?-?-?-?-?-?-?-?-?- 29w 4d 251 lb 6 oz 111/76 Trac e -?-?-?-?-?-?-?-?-?-?-?-?- Negative A 150 -?-?-?-?-?-?-?-?-?-?-?-?- B 155 A Cephalic -?-?-?-?-?-?-?-?-?-?-?-?- B Cephalic -?-?-?-?-?-?-?-?-?-?-?-?- A -?-?-?-?-?-?-?-?-?-?-?-?- B A SM- no vb lof go od fm no regular ctx -?-?-?-?-?-?-?-?-?-?-?-?- B 02/14/23 -?-?-?-?-?-?-?-?-?-?-?-?- 31w 3d 255 lb 6 oz 119/78 Nega tive -?-?-?-?-?-?-?-?-?-?-?-?- Negative A 140 -?-?-?-?-?-?-?-?-?-?-?-?- B 150 A -?-?-?-?-?-?-?-?-?-?-?-?- B -?-?-?-?-?-?-?-?-?-?-?-?- A -?-?-?-?-?-?-?-?-?-?-?-?- B A SM- no vb lof go od fm no regular ctx just doc soto -?-?-?-?-?-?-?-?-?-?-?-?- B 02/21/23 -?-?-?-?-?-?-?-?-?-?-?-?- 32w 3d 254 lb 115/75 -?-?-?-?-?-?-?-?-?-?-?-?- A 140 -?-?-?-?-?-?-?-?-?-?-?-?- B 145 A Cephalic -?-?-?-?-?-?-?-?-?--?-?-?- B Cephalic -?-?-?-?-?-?-?-?-?-?-?-?- A -?-?-?-?-?-?-?-?-?-?-?-?- B A SM- no vb lof go od fm x 2 no regualr ctx -?-?-?-?-?-?-?-?-?-?-?-?- B ROS Constitutional Constitutional: Reports systems reviewed and no addt'l complaints, except as documented Gastrointestinal Gastrointestinal: Denies bloating, constipation, cramping, diarrhea, nausea or vomiting Genitourinary Genitourinary: Reports other Details: Denies vaginal odor, vaginal bleeding, or vaginal discharge ; Denies difficulty urinating or flank pain Physical Exam HEENT normocephalic Resp normal respiratory effort and normal air movement no CVA tenderness Extremity normal to inspection General Extremity: edema bilateral (trace ) NST FHR Rate Baby A Baseline: 140 Variability:: Moderate Accelerations:: 15 x 15 Decelerations:: None NST Reactive:: Yes FHR Category:: Category I FHR Rate Baby B Baseline: 130 Variability:: Moderate Accelerations:: 15 x 15 Decelerations:: None NST Reactive:: Yes FHR Category:: Category I Uterine Activity:: q 5 min contractions. Assessment & Plan (1) Cerebral ventriculomegaly of fetus: COMMENT: both infants-mild, with out macrocephaly. following with [facility] (2) Contraception management: COMMENT: signed title 19 for request for salpingectomy (3) Supervision of high-risk : COMMENT: PRR DERICK 04/15/23 boys Krystian Guillen Lexi. Spouse-Jase (lorraine) (4) Monochorionic diamniotic twin gestation: COMMENT: echo completed, MRI ordered, Eval for twin to twin transfusion q2 weeks as well as fluid level Q2 wks 13% discordance Growth US q4 weekly NST starting at 32 weeks Deliver at 37 weeks [facility] recommends peds cardio follow up after but no indication why. 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 neg. 254/254 (6) Obesity affecting : COMMENT: 1 tm GCT normal, encouraged healthy weight gain. (7) Rh negative status during : QUALIFIERS: Trimester: second trimester Qualified Code(s): O26.892 - Other specified related conditions, second trimester; Z67.91 - Unspecified blood type, Rh negative COMMENT: Rhogam at 28 weeks and prn, given 01/21/23 (8) : QUALIFIERS: Weeks of gestation: 32 weeks Qualified Code(s): Z3A.32 - 32 weeks gestation of COMMENT: NIPT low risk and carrier done in past., nl anatomy of mono/di twins. tdap given Charges/Coding Multi Select Codes Visit Charges Office Visit/Consults: 42665 OV L3 Est Urinary/Genital Urinary/Genital CPT Codes: 74605-26 non-stress test Interp
[2023-02-23] MEDS: Betamethasone/Betamethasone 30 MG/5 ML Vial 12 MG IM (09:05)
[2023-02-23 09:11] LABS: Absolute Lymphocyte Count 1.88 X10^3/uL (0.83-4.51); Absolute Neutrophil Count 6.6 X10^3/uL (2.0-7.7); Basophil# 0.04 X10^3/uL; Basophil% 0.4 % (0-1); Eosinophil# 0.13 X10^3/uL; Eosinophils% 1.3 % (0-5); Lymphocyte # 1.88 X10^3/ul (0.83-4.51); Lymphocyte % 19.5 % (19-41); Mean Corp Hgb Conc 31.3 g/dL (32-36); Mean Corpuscular Hgb 25.2 pg (27.0-32.0); Mean Corpuscular Volume 80.6 fL (81-99); Mean Platelet Vol. 10.9 fl (6.2-12.0); Monocyte# 0.82 X10^3/uL; Monocyte% 8.5 % (0-10); NRBC Flagged by Analyzer 0 % (0-5); Neutrophil # 6.55 X10^3/uL (2.7-7.7); Platelet Count 214 K/mm3 (150-450); RBC Distribution Width CV 15.4 % (11.6-14.6); RBC Distribution Width SD 44.8 fl (35.1-43.9); Red Blood Count 3.97 M/mm3 (4.2-5.4); White Blood Count 9.6 K/mm3 (4.4-11.0)
[2023-02-23 09:50] LABS: Rubella IgG Reactive (Nonreactive)
[2023-02-23 10:07] LABS: Syphilis Antibodies Non-reactive
[2023-02-23 10:53] LABS: Group B Strep DNA By PCR Negative (Negative); Internal Control PASS; Specimen Processing Control PASS
[2023-02-23 10:54] LABS: Probe Check PASS
== END 2023-02-23 10:05 | disposition short-term general hospital (02) ==
LOC: WPOUT 07:43 → WP 07:44
PROVIDERS: Referring Provider Obstetrics & Gynecology; Visit Provider Obstetrics & Gynecology
DX: O30.003 Twin pregnancy, unspecified number of placenta and unspecified number of amniotic sacs, third trimester (principal); O99.213 Obesity complicating pregnancy, third trimester; Z3A.32 32 weeks gestation of pregnancy
CPT/HCPCS: 96365; 96366; 96372; 36415; 59025; 59050; 76815; 85025; 86762; 86780; 86850; 86870; 86900; 86901; 87081; 87653; 99221; J7120; G0378; J0702

== ENCOUNTER 2023-02-28 21:30 | Outpatient (CLI) | payer BC, MEDICAID, SELFPAY ==
[2023-02-28] VITALS (11 sets, daily range): BP systolic 129–148; BP diastolic 72–79; PULSE 105–123; TEMP 36.7; O2SAT 96–98; BMI 38.2
--- NOTE | 2023-03-01 00:41 | OB.TRI.HP_ITS ---
HPI - General General Date of Admission: 02/28/23 HPI Narrative NABIL MEJIA, is a 22 F who presents with increasing contractions after discharge from [facility] today. no vb lof admits good fm. still 2-/-2 dilated Maternal Data Information DERICK Calculator Estimated Delivery Date Method Current WG Current Estimate 04/15/23 Manual 33w 4d per MFM US Other Estimates 04/26/23 LMP (Certain) 32w 0d # 2 PFSH PFSH Medical History Anemia Chondromalacia patellae, left knee Foot pain, left Internal derangement of left knee Left ankle sprain Left knee pain No significant family history No significant medical problems Pap smear to confirm normal after abnormal result Peroneal tendonitis of left lower extremity care and examination Rh negative status during Vaginal delivery Home Medications famotidine 20 mg tablet (Pepcid) 20 mg PO Q12H #60 tabs 11/01/22 [Rx Last Taken 02/22/23 21:00 20 mg] Allergy/AdvReac Type Severity Reaction Status Date / Time No Known Allergies Allergy Verified 02/28/23 21:47 Surgical History No significant past surgical history Social History household members: family housing: house number of children: 2 pets and animals: Yes sexually active: No Smoking Status: Never smoker second hand exposure: Yes alcohol intake: current alcohol intake frequency: holidays/special occasions only details: not while substance use type: does not use seatbelt use: always do you feel safe at home: Yes additional social history: Spouse: Jase History 3 Elective abortions 0 Hx Para 2 Spontaneous abortions 0 Hx # Term Pregnancies 1 Ectopic pregnancies 0 Hx # Pregnancies 1 Multiple births # of living children 2 Past Pregnancies Del. Date Name GA/Weeks Outcome Route Bth Weight Infant Gen Labor Lgth Anesthesia Del Locatn Provider FOB 02/29/20 Tia 36 live - 6lbs 9oz Female 13 romero rs epidural [facility] in [place], [place] Dr. Mckinley 05/02/21 Alexsandra 39 live - full term Female [facility] Dr. Lexx Brothers Delivery Date: 02/29/20 Last Updated by: Concha Lopez PROM Delivery Date: 05/02/21 Last Updated by: Regina Vela COVID Visit Details Expected Delivery Route/Plan LTCS and BS Labor Preferences- CB/BF classes: [] labor support person: [] labor intervention preferences: [] pain management options preferred: [] cut cord/dad catch: [] : [] PP control planned: [] discussed possible routes of delivery and associated risks: [] special requests: [] Plans Covid status: Flu vaccine: [] Tdap vaccine: [] Rhogam: [] LARC form signed: [] Problem list reviewed and updated with the most current plan of care details and appropriate orders placed. Relevant counseling for the gestational age provided. Continue routine care and follow up unless otherwise noted in visit notes/problem list details OB Flowsheet Initial Weight: Not Recorded Date -?-?-?-?-?-?-?-?-?-?-?-?- EGA Weight BP Urine Prot -?-?-?-?-?-?-?-?-?-?-?-?- Glucose FHR FuHt Pres Dilation -?-?-?-?-?-?-?-?-?-?-?-?- Effaced St Visit Note 09/06/22 -?-?-?-?-?-?-?-?-?-?-?-?- 8w 3d 210 lb 118/75 -?-?-?-?-?-?-?-?-?-?-?-?- A 170 -?-?-?-?-?-?-?-?-?-?-?-?- B 170 A -?-?-?-?-?-?-?-?-?-?-?-?- B -?-?-?-?-?-?-?-?-?-?-?-?- A -?-?-?-?-?-?-?-?-?-?-?-?- B A SM- 1 GS but ear ly secon sacs around each pole seen, with 2 poles one measuring 7w3d the other 8w3d both with FHT present 170. subchorionic hematoma present -?-?-?-?-?-?-?-?-?-?-?-?- B 10/06/22 -?-?-?-?-?-?-?-?-?-?-?-?- 12w 5d 215 lb 2 oz 119/80 -?-?-?-?-?-?-?-?-?-?-?-?- A 176 -?-?-?-?-?-?-?-?-?-?-?-?- B 165 A -?-?-?-?-?-?-?-?-?-?-?-?- B -?-?-?-?-?-?-?-?-?-?-?-?- A -?-?-?-?-?-?-?-?-?-?-?-?- B A JV- mono/di twin s- has follow up with mfm in 2 weeks to determine chorionicity. then q2 weeks for ASPEN and q 2-4 weeks for growth. NIPT ordered today. -?-?-?-?-?-?-?-?-?-?-?-?- B 11/01/22 -?-?-?-?-?-?-?-?-?-?-?-?- 16w 3d 221 lb 4 oz 121/81 Nega tive -?-?-?-?-?-?-?-?-?-?-?-?- Negative A 135 -?-?-?-?-?-?-?-?-?-?-?-?- B 150 A -?-?-?-?-?-?-?-?-?-?-?-?- B -?-?-?-?-?-?-?-?-?-?-?-?- A -?-?-?-?-?-?-?-?-?-?-?-?- B A SM- no vb crampi ng feeling better, anatomy US scheduled -?-?-?-?-?-?-?-?-?-?-?-?- B 11/29/22 -?-?-?-?-?-?-?-?-?-?-?-?- 20w 3d 233 lb 4 oz 103/76 -?-?-?-?-?-?-?-?-?-?-?-?- A 145 -?-?-?-?-?-?-?-?-?-?-?-?- B 145 A -?-?-?-?-?-?-?-?-?-?-?-?- B -?-?-?-?-?-?-?-?-?-?-?-?- A -?-?-?-?--?-?-?-?-?-?-?-?- B A SM- no fernanda ashrafn well US q 2 weeks, patient states due date changed by MFM to 04/15/23 -?-?-?-?-?-?-?-?-?-?-?-?- B 01/04/23 -?-?-?-?-?-?-?-?-?-?--?-?- 25w 4d 246 lb 8 oz 111/78 -?-?-?-?-?-?-?-?-?-?-?-?- A 139 -?-?-?-?-?-?-?-?-?-?-?-?- B 143 A Breech -?-?-?-?-?-?-?-?-?-?-?-?- B Breech -?-?-?-?-?-?-?-?-?-?-?-?- A -?-?-?-?-?-?-?-?-?-?-?-?- B A JV- growth yeste rday showed adequate concordant growth JV- growth yesterday. showed adequate . concordant growth. wants tubal ligation and has caresource for secondary insurance. will need title 19 -?-?-?-?-?-?-?-?-?-?-?-?- B 01/21/23 -?-?-?-?-?-?-?-?-?-?-?-?- 28w 0d 251 lb 4 oz 118/70 Nega tive -?-?-?-?-?-?-?-?-?-?-?-?- Negative A 145 -?-?-?-?-?-?-?-?-?-?-?-?- B 140 A Cephalic -?-?-?-?-?-?-?-?-?-?-?-?- B Cephalic -?-?-?-?-?-?-?-?-?-?-?-?- A -?-?-?-?-?-?-?-?-?-?-?-?- B A SM- no vb lof go od fm x 2 no regular ctx, desires LTCS and BS, title 19 signed. -?-?-?-?-?-?-?-?-?-?-?-?- B 02/01/23 -?-?-?-?-?-?-?-?-?-?-?-?- 29w 4d 251 lb 6 oz 111/76 Trac e -?-?-?-?-?-?-?-?-?-?-?-?- Negative A 150 -?-?-?-?--?-?-?-?-?-?-?-?- B 155 A Cephalic -?-?-?-?-?-?-?-?-?-?-?-?- B Cephalic -?-?-?-?-?-?-?-?-?-?-?-?- A -?-?-?-?-?-?-?-?-?-?-?-?- B A SM- no vb lof go od fm no regular ctx -?-?-?-?-?-?-?-?-?-?-?-?- B 02/14/23 -?-?-?-?-?-?-?-?-?-?-?-?- 31w 3d 255 lb 6 oz 119/78 Nega tive -?-?-?-?-?-?-?-?-?-?-?-?- Negative A 140 -?-?-?-?-?-?-?-?-?-?-?-?- B 150 A -?-?-?-?-?-?-?-?-?-?-?-?- B -?-?-?-?-?-?-?-?-?-?-?-?- A -?-?-?-?-?-?-?-?-?-?-?-?- B A SM- no vb lof go od fm no regular ctx just doc soto -?-?-?-?-?-?-?-?-?-?-?-?- B 02/21/23 -?-?-?-?-?-?-?-?-?-?-?-?- 32w 3d 254 lb 115/75 -?-?-?-?-?-?-?-?-?-?-?-?- A 140 -?-?-?-?-?-?-?-?-?-?-?-?- B 145 A Cephalic -?-?-?-?-?-?-?-?-?-?-?-?- B Cephalic -?-?-?-?-?-?-?-?-?-?-?-?- A -?-?-?-?-?-?-?-?-?-?-?-?- B A SM- no vb lof go od fm x 2 no regualr ctx -?-?-?-?-?-?-?-?-?-?-?-?- B ROS Constitutional Constitutional: Reports systems reviewed and no addt'l complaints, except as documented and as per HPI ENT HEENT: Reports systems reviewed and no addt'l complaints, except as documented Cardiovascular Cardiovascular: Reports systems reviewed and no addt'l complaints, except as documented Respiratory/Chest Respiratory/Chest: Reports systems reviewed and no addt'l complaints, except as documented Gastrointestinal Gastrointestinal: Reports as per HPI Genitourinary Genitourinary: Reports as per HPI Musculoskeletal Musculoskeletal: Reports systems reviewed and no addt'l complaints, except as documented Integumentary Integumentary: Reports systems reviewed and no addt'l complaints, except as documented Neurologic Neurologic: Reports systems reviewed and no addt'l complaints, except as documented Physical Exam Const alert, oriented x3 and no apparent distress HEENT Head and Scalp: normocephalic and atraumatic Neck full ROM and no lymphadenopathy Chest inspection of chest normal Resp normal respiratory effort GI GI Narrative: gravid, abdomen nontender, AGA Manual OB Exam: dilated, effaced and station NST FHR Rate Baby A Baseline: 140 Variability:: Moderate Accelerations:: 15 x 15 Decelerations:: None NST Reactive:: Yes FHR Category:: Category I Uterine Activity:: irregular FHR Rate Baby B Baseline: 140 Variability:: Moderate Accelerations:: 15 x 15 Decelerations:: None NST Reactive:: Yes Assessment & Plan (1) Threatened labor: COMMENT: discharged from [facility] 02/28. seen in triage 02/28 still 2-/-2 (2) : QUALIFIERS: Weeks of gestation: 32 weeks Qualified Code(s): Z3A.32 - 32 weeks gestation of COMMENT: Neg GBS. NIPT low risk and carrier done in past., nl anatomy of mono/di twins. tdap given (3) Rh negative status during : QUALIFIERS: Trimester: second trimester Qualified Code(s): O26.892 - Other specified related conditions, second trimester; Z67.91 - Unspecified blood type, Rh negative COMMENT: Rhogam at 28 weeks and prn, given 01/21/23 (4) Obesity affecting : COMMENT: 1 tm GCT normal, encouraged healthy weight gain. 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 neg. 254/254 (6) Monochorionic diamniotic twin gestation: COMMENT: echo completed, MRI ordered, Eval for twin to twin transfusion q2 weeks as well as fluid level Q2 wks 13% discordance Growth US q4 weekly NST starting at 32 weeks Deliver at 37 weeks [facility] recommends peds cardio follow up after but no indication why. RLTCS BS scheduled for 03/25 @ 7:30 with JV (7) Supervision of high-risk : COMMENT: PRR DERICK 04/15/23 boys Krystian Guillen Lexi. Spouse-Jase (lorraine) (8) Contraception management: COMMENT: signed title 19 for request for salpingectomy (9) Cerebral ventriculomegaly of fetus: COMMENT: both infants-mild, with out macrocephaly. following with mfm PLAN: Plan monitored for several hours and no cervical change minimal contractions dc home Charges/Coding Multi Select Codes Visit Charges Office Visit/Consults: 66471 OV L3 Est Urinary/Genital Urinary/Genital CPT Codes: 21886-32 non-stress test Interp
== END 2023-02-28 23:52 | disposition home or self-care (01) ==
LOC: WPOUT 21:33 → WP 21:33
PROVIDERS: Visit Provider Obstetrics & Gynecology
DX: O47.03 False labor before 37 completed weeks of gestation, third trimester (principal); O99.213 Obesity complicating pregnancy, third trimester; O30.003 Twin pregnancy, unspecified number of placenta and unspecified number of amniotic sacs, third trimester; Z3A.32 32 weeks gestation of pregnancy
CPT/HCPCS: 59025; 59050; 99221; G0378

== ENCOUNTER 2023-03-08 16:40 | Outpatient (CLI) | payer BC, MEDICAID, SELFPAY ==
[2023-03-08 16:53] VITALS: TEMP 37.1
[2023-03-08 16:54] VITALS: BP 121/69; PULSE 107
[2023-03-08 16:58] VITALS: BMI 37.4
[2023-03-08 17:02] LABS: Hematocrit 32.3 % (37-47); Hemoglobin 9.7 g/dL (12.0-15.0); Mean Corpuscular Hgb 23.8 pg (27.0-32.0); Mean Corpuscular Volume 79.4 fL (81-99); Mean Platelet Vol. 11.1 fl (6.2-12.0); Platelet Count 234 K/mm3 (150-450); RBC Distribution Width CV 16.4 % (11.6-14.6); RBC Distribution Width SD 45.8 fl (35.1-43.9); Red Blood Count 4.07 M/mm3 (4.2-5.4); White Blood Count 9.9 K/mm3 (4.4-11.0)
[2023-03-08 17:17] LABS: AST(SGOT) 15 U/L (15-37); Alanine Aminotransfer ALT/SGPT 12 U/L (13-56); Creatinine, Serum 0.64 mg/dL (0.55-1.02); EST Glomerular Filtration Rate 120 mL/min (>60); Est Glom Filt Rate - Afr Amer 145 mL/min (>60); Estimated Creatinine Clearance 141.65 ml/min; Uric Acid 4.7 mg/dL (2.6-6.0)
[2023-03-08 18:09] LABS: Creatinine, Urine (random) > 300.00 mg/dL (NO RANGE EST.)
--- NOTE | 2023-03-08 18:14 | OB.TRI.PN_ITS ---
Progress Notes Date of Service: 03/08/23 Progress Note: Patient presents for triage evaluation secondary to NST/ elevated urine protein in office FHT: Moderate variability reactive no decelerations category I tracing for Baby A and B [place]: mild Contractions that have been persistent x 2 weeks. Assessment and plan: Reactive NST, no cervical change, Pre eclampsia labs normal, reassuring maternal and status patient discharged to home to follow-up in office next week. Start Iron supplement for anemia. See problem list details for additional plan information. Laboratory Studies: Laboratory Tests 03/08/23 03/08/23 Range/Units 17:26 16:50 WBC 9.9 (4.4-11.0) K/mm3 RBC 4.07 L (4.2-5.4) M/mm3 Hgb 9.7 L (12.0-15.0) g/dL Hct 32.3 L (37-47) % MCV 79.4 L (81-99) fL MCH 23.8 L (27.0-32.0) pg MCHC 30.0 L (32-36) g/dL RDW Std Deviation 45.8 H (35.1-43.9) fl RDW Coeff of Tosin 16.4 H (11.6-14.6) % Plt Count 234 (150-450) K/mm3 MPV 11.1 (6.2-12.0) fl Creatinine 0.64 (0.55-1.02) mg/dL Estim Creat Clear Calc 141.65 ml/min Est GFR (MDRD) Af Amer 145 (>60) mL/min Est GFR (MDRD) Non-Af 120 (>60) mL/min Uric Acid 4.7 (2.6-6.0) mg/dL AST 15 (15-37) U/L ALT 12 L (13-56) U/L U Random Total Protein 44.0 H (<11.9) mg/dL Urine Creatinine > 300.00 (NO RANGE EST.) mg/dL Protein/Creatinin Ratio TNP Charges/Coding Multi Select Codes Urinary/Genital Urinary/Genital CPT Codes: 73201-53 non-stress test Interp Assessment & Plan (1) Anemia affecting : COMMENT: HGB 9.7 on 03/08-start iron supplement consider infusion. (2) Threatened labor: COMMENT: discharged from [facility] 02/28. seen in triage 02/28 still 2-3/60/-2 (3) Cerebral ventriculomegaly of fetus: COMMENT: both infants-mild, with out macrocephaly. following with [facility] (4) Contraception management: COMMENT: signed title 19 for request for salpingectomy (5) Supervision of high-risk : COMMENT: PRR DERICK 04/15/23 boys Krystian Guillen, Alexsandra. Spouse-Jase (lorraine) (6) Monochorionic diamniotic twin gestation: COMMENT: echo completed, MRI ordered, Eval for twin to twin transfusion q2 weeks as well as fluid level Q2 wks 13% discordance Growth US q4 weekly NST starting at 32 weeks Deliver at 37 weeks [facility] recommends peds cardio follow up after but no indication why. 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 neg. 254/254 (8) Obesity affecting : COMMENT: 1 tm GCT normal, encouraged healthy weight gain. (9) Rh negative status during : QUALIFIERS: Trimester: second trimester Qualified Code(s): O26.892 - Other specified related conditions, second trimester; Z67.91 - Unspecified blood type, Rh negative COMMENT: Rhogam at 28 weeks and prn, given 01/21/23 (10) : QUALIFIERS: Weeks of gestation: 34 weeks Qualified Code(s): Z3A.34 - 34 weeks gestation of COMMENT: Neg GBS. NIPT low risk and carrier done in past., nl anatomy of mono/di twins. tdap given
== END 2023-03-08 18:25 | disposition home or self-care (01) ==
LOC: WPOUT 16:44 → WP 16:45
PROVIDERS: Referring Provider Obstetrics & Gynecology; Visit Provider Obstetrics & Gynecology
DX: O99.013 Anemia complicating pregnancy, third trimester (principal); O26.893 Other specified pregnancy related conditions, third trimester; O99.214 Obesity complicating childbirth; O47.03 False labor before 37 completed weeks of gestation, third trimester; Z3A.34 34 weeks gestation of pregnancy
CPT/HCPCS: 36415; 59025; 59050; 82565; 82570; 84156; 84450; 84460; 84550; 85027; 99221; G0378

== ENCOUNTER 2023-03-11 11:15 | Outpatient (CLI) | payer BC, MEDICAID, SELFPAY ==
[2023-03-11 11:29] VITALS: BP 117/74; PULSE 105; TEMP 36.9; O2SAT 96
[2023-03-11 11:31] VITALS: BP 117/74; PULSE 105
[2023-03-11 11:50] VITALS: BMI 37.4
== END 2023-03-11 15:00 | disposition home or self-care (01) ==
LOC: WPOUT 11:22 → WP 11:42
PROVIDERS: Referring Provider Obstetrics & Gynecology; Visit Provider Obstetrics & Gynecology
DX: O99.013 Anemia complicating pregnancy, third trimester (principal); O99.213 Obesity complicating pregnancy, third trimester; O47.03 False labor before 37 completed weeks of gestation, third trimester; Z3A.34 34 weeks gestation of pregnancy
CPT/HCPCS: 96365; 59025; 59050; 99221; G0378

== ENCOUNTER 2023-03-12 00:10 | Outpatient (CLI) | payer BC, MEDICAID, SELFPAY ==
[2023-03-12 00:23] VITALS: BP 143/70; PULSE 100
[2023-03-12 00:25] VITALS: BMI 37.8
[2023-03-12] MEDS: Lactated Ringers 1,000 ML 999 ML IV (00:45)
[2023-03-12] MEDS: Ondansetron 4 MG/2 ML Vial IV (01:09)
[2023-03-12 02:29] VITALS: PULSE 87; O2SAT 98
[2023-03-12 02:39] VITALS: BP 142/85; PULSE 93
[2023-03-12 02:51] VITALS: BP 137/69; PULSE 85
--- NOTE | 2023-03-12 15:36 | OB.TRI.PN_ITS ---
Progress Notes Date of Service: 03/12/23 Progress Note: Patient presents for triage evaluation secondary to contractions and nausea. FHT: 135 Moderate variability reactive no decelerations category I tracing for both Twin A and Twin B [place]: mild Contractions Assessment and plan: Reactive NST, reassuring maternal and status, no cervical change, patient discharged to home to follow-up in the office. See problem list details for additional plan information. Charges/Coding Multi Select Codes Urinary/Genital Urinary/Genital CPT Codes: 39271-77 non-stress test Interp Assessment & Plan (1) Anemia affecting : COMMENT: HGB 9.7 on 03/08-start iron supplement consider infusion. (2) Threatened labor: COMMENT: [facility] seen in triage 02/28 still 2-/2 (3) Cerebral ventriculomegaly of fetus: COMMENT: both infants-mild, with out macrocephaly. following with [facility] (4) Contraception management: COMMENT: signed title 19 for request for salpingectomy (5) Supervision of high-risk : COMMENT: PRR DERICK 04/15/23 boys Krystian Guillen Lexi. Spouse-Jase (lorraine) (6) Monochorionic diamniotic twin gestation: COMMENT: echo completed, MRI ordered, Eval for twin to twin transfusion q2 weeks as well as fluid level Q2 wks 13% discordance Growth US q4 weekly NST starting at 32 weeks Deliver at 37 weeks [facility] recommends peds cardio follow up after but no indication why. 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 neg. 254/254 (8) Obesity affecting : COMMENT: 1 tm GCT normal, encouraged healthy weight gain. (9) Rh negative status during : QUALIFIERS: Trimester: second trimester Qualified Code(s): O26.892 - Other specified related conditions, second trimester; Z67.91 - Unspecified blood type, Rh negative COMMENT: Rhogam at 28 weeks and prn, given 01/21/23 (10) : QUALIFIERS: Weeks of gestation: 34 weeks Qualified Code(s): Z3A.34 - 34 weeks gestation of COMMENT: Neg GBS. NIPT low risk and carrier done in past., nl anatomy of mono/di twins. tdap given
== END 2023-03-12 03:02 | disposition home or self-care (01) ==
LOC: WPOUT 00:14 → WP 00:14
PROVIDERS: Referring Provider Obstetrics & Gynecology; Visit Provider Obstetrics & Gynecology
DX: O99.013 Anemia complicating pregnancy, third trimester (principal); O99.213 Obesity complicating pregnancy, third trimester; O47.03 False labor before 37 completed weeks of gestation, third trimester; Z3A.34 34 weeks gestation of pregnancy
CPT/HCPCS: 96365; 96375; 59025; 59050; 99221; J7120; G0378; J2405

== ENCOUNTER 2023-03-15 09:40 | Outpatient (CLI) | payer BC, MEDICAID, SELFPAY ==
[2023-03-15 09:53] VITALS: BP 124/75; PULSE 100; TEMP 36.9; O2SAT 96
[2023-03-15 09:56] VITALS: BMI 37.7
--- NOTE | 2023-03-15 12:34 | OB.TRI.PN ---
Progress Notes Date of Service: 03/15/23 Progress Note: Patient presents for triage evaluation secondary to scheduled NST FHT: Twin A: 135 Twin B: 140 Moderate variability reactive no decelerations category I tracing [place]: No Contractions Assessment and plan: Reactive NST, reassuring maternal and status patient discharged to home to follow-up in office. See problem list details for additional plan information. Charges/Coding Multi Select Codes Urinary/Genital Urinary/Genital CPT Codes: 91334-56 non-stress test Interp
== END 2023-03-15 10:15 | disposition home or self-care (01) ==
LOC: WPOUT 09:41 → WP 09:42
PROVIDERS: Referring Provider Advanced Practice Midwife; Visit Provider Advanced Practice Midwife
DX: O47.9 False labor, unspecified (principal); Z3A.00 Weeks of gestation of pregnancy not specified
CPT/HCPCS: 59025; 59050; 99221; G0378

== ENCOUNTER 2023-03-18 17:37 | Outpatient (CLI) | payer BC, MEDICAID, SELFPAY ==
[2023-03-18 17:52] VITALS: BP 135/70; PULSE 92; TEMP 36.4
[2023-03-18 18:00] VITALS: BMI 37.9
[2023-03-18] MEDS: Lactated Ringers 1,000 ML 999 ML IV (18:05)
[2023-03-18] MEDS: Ondansetron 4 MG/2 ML Vial IV (18:15)
[2023-03-18 18:37] LABS: Color, Urine Yellow (Yellow); Glucose, Dipstick Normal (Normal); Ketone-Dipstick 5 mg/dl (Negative); Leukocyte Esterase-Dipstick 500 /ul (Negative); Nitrite-Dipstick Negative (Negative); Occult Blood-Urine 10 /ul (Negative); Protein-Dipstick 15 mg/dl (Negative); Specific Gravity, Urine 1.015 (1.002-1.030); Urine Bilirubin Dipstick Negative (Negative); Urine Clarity Cloudy (Clear); Urine Urobilinogen Normal (Normal)
[2023-03-18 19:32] VITALS: BP 125/80; PULSE 89; TEMP 36.7; O2SAT 98
[2023-03-18 19:34] VITALS: BP 125/80; PULSE 94
--- NOTE | 2023-03-18 21:39 | OB.TRI.HP_ITS ---
HPI - General General Date of Service: 03/18/23 HPI Narrative NABIL MEJIA, is a 22 F at 36.0 weeks who presents with nausea and vomiting. Maternal Data Information DERICK Calculator Estimated Delivery Date Method Current WG Current Estimate 04/15/23 Manual 36w 0d per MFM US Other Estimates 04/26/23 LMP (Certain) 34w 3d # 2 Final DERICK: 04/15/23 Final DERICK Source: US >20 weeks Gestational age: 36.0 weeks [facility] Medical History Anemia Chondromalacia patellae, left knee Foot pain, left Internal derangement of left knee Left ankle sprain Left knee pain No significant family history No significant medical problems Pap smear to confirm normal after abnormal result Peroneal tendonitis of left lower extremity care and examination Rh negative status during Vaginal delivery Home Medications famotidine 20 mg tablet (Pepcid) 20 mg PO Q12H #60 tabs 11/01/22 [Rx Last Taken 03/18/23 16:00 20 mg] ferrous sulfate 325 mg (65 mg iron) tablet (Feosol) 325 mg PO DAILY low iron 03/08/23 [History Last Taken 03/18/23 08:00 325 mg] nitrofurantoin macrocrystal 100 mg capsule 100 mg PO BID 7 days #14 caps 03/18/23 [Rx Last Taken Unknown] Allergy/AdvReac Type Severity Reaction Status Date / Time No Known Allergies Allergy Verified 03/18/23 18:16 Surgical History No significant past surgical history Social History household members: family housing: house number of children: 2 pets and animals: Yes sexually active: No Smoking Status: Never smoker second hand exposure: Yes alcohol intake: current alcohol intake frequency: holidays/special occasions only details: not while substance use type: does not use seatbelt use: always do you feel safe at home: Yes additional social history: Spouse: Jase History 3 Elective abortions 0 Hx Para 2 Spontaneous abortions 0 Hx # Term Pregnancies 1 Ectopic pregnancies 0 Hx # Pregnancies 1 Multiple births # of living children 2 Past Pregnancies Del. Date Name GA/Weeks Outcome Route Bth Weight Gen Labor Lgth Anesthesia Del Micheleatn Provider FOB 02/29/20 Tia 36 live - 6lbs 9oz Female 13 romero rs epidural [facility] in [place], [place] Dr. Mckinley 05/02/21 Alexsandra 39 live - full term Female [facility] Dr. Lexx Brothers Delivery Date: 02/29/20 Last Updated by: Concha Lopez PROM Delivery Date: 05/02/21 Last Updated by: Regina Vela COVID Visit Details Expected Delivery Route/Plan LTCS and BS Labor Preferences- CB/BF classes: [] labor support person: [] labor intervention preferences: [] pain management options preferred: [] cut cord/dad catch: [] : [] PP control planned: [] discussed possible routes of delivery and associated risks: [] special requests: [] Plans Covid status: Flu vaccine: [] Tdap vaccine: [] Rhogam: [] LARC form signed: [] Problem list reviewed and updated with the most current plan of care details and appropriate orders placed. Relevant counseling for the gestational age provided. Continue routine care and follow up unless otherwise noted in visit notes/problem list details OB Flowsheet Initial Weight: Not Recorded Date -?-?-?-?-?-?-?-?-?-?-?-?- EGA Weight BP Urine Prot -?-?-?-?-?-?-?-?-?-?-?-?- Glucose FHR FuHt Pres Dilation -?-?-?-?-?-?-?-?-?-?-?-?- Effaced St Visit Note 09/06/22 -?-?-?-?-?-?-?-?-?-?-?-?- 8w 3d 210 lb 118/75 -?-?-?-?-?-?-?-?-?-?-?-?- A 170 -?-?-?-?-?-?-?-?-?-?-?-?- B 170 A -?-?-?-?-?-?-?-?-?-?-?-?- B -?-?-?-?-?-?-?-?-?-?-?-?- A -?-?-?-?-?-?-?-?-?-?-?-?- B A SM- 1 GS but ear ly secon sacs around each pole seen, with 2 poles one measuring 7w3d the other 8w3d both with FHT present 170. subchorionic hematoma present -?-?-?-?-?-?-?-?-?-?-?-?- B 10/06/22 -?-?-?-?-?-?-?-?-?-?-?-?- 12w 5d 215 lb 2 oz 119/80 -?-?-?-?-?-?-?-?-?-?-?-?- A 176 -?-?-?-?-?-?-?-?-?-?-?-?- B 165 A -?-?-?-?-?-?-?-?-?-?-?-?- B -?-?-?-?-?-?-?-?-?-?-?-?- A -?-?-?-?-?-?-?-?-?-?-?-?- B A JV- mono/di twin s- has follow up with mfm in 2 weeks to determine chorionicity. then q2 weeks for ASPEN and q 2-4 weeks for growth. NIPT ordered today. -?-?-?-?-?-?-?-?-?-?-?-?- B 11/01/22 -?-?-?-?-?-?-?-?-?-?-?-?- 16w 3d 221 lb 4 oz 121/81 Nega tive -?-?-?-?-?-?-?-?-?-?-?-?- Negative A 135 -?-?-?-?-?-?-?-?-?-?-?-?- B 150 A -?-?-?-?-?-?-?-?-?-?-?-?- B -?-?-?-?-?-?-?-?-?-?-?-?- A -?-?-?-?-?-?-?-?-?-?-?-?- B A SM- no vb diana flower feeling better, anatomy US scheduled -?-?-?-?-?-?-?-?-?-?-?-?- B 11/29/22 -?-?-?-?-?-?-?-?-?-?-?-?- 20w 3d 233 lb 4 oz 103/76 -?-?-?-?-?-?-?-?-?-?-?-?- A 145 -?-?-?-?-?-?-?-?-?-?-?-?- B 145 A -?-?-?-?-?-?-?-?-?-?-?-?- B -?-?-?-?-?-?-?-?-?-?-?-?- A -?-?-?-?-?-?-?-?-?-?-?-?- B A SM- no vb diana flower doin well US q 2 weeks, patient states due date changed by MFM to 04/15/23 -?-?-?-?-?-?-?-?-?-?-?-?- B 01/04/23 -?-?-?-?-?-?-?-?-?-?-?-?- 25w 4d 246 lb 8 oz 111/78 -?-?-?-?-?-?-?-?-?-?--?-?- A 139 -?-?-?-?-?-?-?-?-?-?-?-?- B 143 A Breech -?-?-?-?-?-?-?-?-?-?-?-?- B Breech -?-?-?-?-?-?-?-?-?-?-?-?- A -?-?-?--?-?-?-?-?-?-?-?-?- B A JV- growth yeste rday showed adequate concordant growth JV- growth yesterday. showed adequate . concordant growth. wants tubal ligation and has caresource for secondary insurance. will need title 19 -?-?-?-?-?-?-?-?-?-?-?-?- B 01/21/23 -?-?-?-?-?-?-?-?-?-?-?-?- 28w 0d 251 lb 4 oz 118/70 Nega tive -?-?-?-?-?-?-?-?-?-?-?-?- Negative A 145 -?-?-?-?-?-?-?-?-?-?-?-?- B 140 A Cephalic -?-?-?-?-?-?-?-?-?-?-?-?- B Cephalic -?-?-?-?-?-?-?-?-?-?-?-?- A -?-?-?-?-?-?-?-?-?-?-?-?- B A SM- no vb lof go od fm x 2 no regular ctx, desires LTCS and BS, title 19 signed. -?-?-?-?-?-?-?-?-?-?-?-?- B 02/01/23 -?-?-?-?-?-?-?-?-?-?-?-?- 29w 4d 251 lb 6 oz 111/76 Trac e -?-?-?-?-?-?-?-?-?-?-?-?- Negative A 150 -?-?-?-?-?-?-?-?-?-?-?-?- B 155 A Cephalic -?-?-?-?-?-?-?-?-?-?-?-?- B Cephalic -?-?-?-?-?-?-?-?-?-?-?-?- A -?-?-?-?-?-?-?-?-?-?-?-?- B A SM- no vb lof go od fm no regular ctx -?-?-?-?-?-?-?-?-?-?-?-?- B 02/14/23 -?-?-?-?-?-?-?-?-?-?-?-?- 31w 3d 255 lb 6 oz 119/78 Nega tive -?-?-?-?-?-?-?-?-?-?-?-?- Negative A 140 -?-?-?-?-?-?-?-?-?-?-?-?- B 150 A -?-?-?-?-?-?-?-?-?-?-?-?- B -?-?-?-?-?-?-?-?-?-?-?-?- A -?-?-?-?-?-?-?-?-?-?-?-?- B A SM- no vb lof go od fm no regular ctx just doc soto -?-?-?-?-?-?-?-?-?-?-?-?- B 02/21/23 -?-?-?-?-?-?-?-?-?-?-?-?- 32w 3d 254 lb 115/75 -?-?-?-?-?-?-?-?-?-?-?-?- A 140 -?-?-?-?-?-?-?-?-?-?-?-?- B 145 A Cephalic -?-?-?-?-?-?-?-?-?-?-?-?- B Cephalic -?-?-?-?-?-?-?-?-?-?-?-?- A -?-?-?-?-?-?-?-?-?-?-?-?- B A SM- no vb lof go od fm x 2 no regualr ctx -?-?-?-?-?-?-?-?-?-?-?-?- B 03/01/23 -?-?-?-?-?-?-?-?-?-?-?-?- 33w 4d 255 lb 2 oz 101/70 -?-?-?-?-?-?-?-?-?-?-?-?- A 135 -?-?-?-?-?-?-?-?-?-?-?-?- B 163 A Cephalic -?-?-?-?-?-?-?-?-?-?-?-?- B Cephalic -?-?-?-?-?-?-?-?-?-?-?-?- A -?-?-?-?-?-?-?-?-?-?-?-?- B A JV- pt recently dc from [facility] for false labor. was 3 cm last night and declines pelvic exam today. PTL precautions discussed. -?-?-?-?-?-?-?-?-?-?-?-?- B 03/08/23 -?-?-?-?-?-?-?-?-?-?-?-?- 34w 4d 254 lb 2 oz 112/71 3+ -?-?-?-?-?-?-?-?-?-?-?-?- Negative A 135 -?-?-?-?-?-?-?-?-?-?-?-?- B 140 A -?-?-?-?-?-?-?-?-?-?-?--?- B -?-?-?-?-?-?-?-?-?-?-?-?- A -?-?-?-?-?-?-?-?-?-?-?-?- B A SM- no vb lof go od fm irregular ctx -?-?-?-?-?-?-?-?-?-?-?-?- B 03/15/23 -?-?-?-?-?-?-?-?-?-?-?-?- 35w 4d 256 lb 8 oz 103/72 Nega tive -?-?-?-?-?-?-?-?-?-?-?-?- Negative A 133 -?-?-?-?-?-?-?-?-?-?-?-?- B 144 A Cephalic -?-?-?-?-?-?-?-?-?-?-?-?- B Cephalic 3 -?-?-?-?-?-?-?-?-?-?-?-?- 60 A -2 -?-?-?-?-?-?-?-?-?-?-?-?- B A JV- no lof, vagi nal bleeding, or dec fm. was on L&D this weekend for nausea and vomitting. nst was cat 1 x 2. consent for and BTL signed today, -?-?-?-?-?-?-?-?-?-?-?-?- B ROS Constitutional Constitutional: Reports systems reviewed and no addt'l complaints, except as documented Cardiovascular Cardiovascular: Reports systems reviewed and no addt'l complaints, except as documented Respiratory/Chest Respiratory/Chest: Reports systems reviewed and no addt'l complaints, except as documented Gastrointestinal Gastrointestinal: Reports cramping, nausea and vomiting Genitourinary Genitourinary: Reports systems reviewed and no addt'l complaints, except as documented, contractions and movement Details: present; Denies burning urination, difficulty urinating, flank pain, urinary frequency or urinary incontinence Musculoskeletal Musculoskeletal: Reports systems reviewed and no addt'l complaints, except as documented Integumentary Integumentary: Reports systems reviewed and no addt'l complaints, except as documented Neurologic Neurologic: Reports systems reviewed and no addt'l complaints, except as documented Psychiatric Psychiatric: Reports systems reviewed and no addt'l complaints, except as documented Endocrine Endocrinology: Reports systems reviewed and no addt'l complaints, except as documented Hematologic/Lymphatic Hematologic/Lymphatic: Reports systems reviewed and no addt'l complaints, except as documented Allergic/Immunologic Allergic/Immunologic: Reports systems reviewed and no addt'l complaints, except as documented Physical Exam Const alert and oriented x3 General Appearance: cooperative Resp normal respiratory effort and no retractions GI soft to palpation and non-tender Inspection: gravid Back/Spine no CVA tenderness Skin no rashes or lesions noted Neuro moves all extremities NST FHR Rate Baby A Baseline: 125 Variability:: Moderate Accelerations:: 15 x 15 Decelerations:: None NST Reactive:: Yes FHR Category:: Category I Uterine Activity:: irregular FHR Rate Baby B Baseline: 135 Variability:: Moderate Accelerations:: 15 x 15 Decelerations:: None NST Reactive:: Yes FHR Category:: Category I Assessment & Plan (1) UTI (urinary tract infection): COMMENT: culture sent PLAN: culture Macrobid (2) Anemia affecting : COMMENT: HGB 9.7 on 03/08-start iron supplement consider infusion. (3) Threatened labor: COMMENT: discharged from [facility] 02/28. seen in triage 02/28 still 2-/-2 (4) Supervision of high-risk : COMMENT: PRR DERICK 04/15/23 boys Krystian Guillen Lexi. Spouse-Jase (lorraine) (5) Contraception management: COMMENT: signed title 19 for request for salpingectomy (6) Monochorionic diamniotic twin gestation: COMMENT: echo completed, MRI ordered, Eval for twin to twin transfusion q2 weeks as well as fluid level Q2 wks 13% discordance Growth US q4 weekly NST starting at 32 weeks Deliver at 37 weeks [facility] recommends peds cardio follow up after but no indication why. RLTCS BS scheduled for 03/25 @ 7:30 with JV (7) Obesity affecting : COMMENT: 1 tm GCT normal, encouraged healthy weight gain. 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 neg. 254/254 (9) Rh negative status during : QUALIFIERS: Trimester: second trimester Qualified Code(s): O26.892 - Other specified related conditions, second trimester; Z67.91 - Unspecified blood type, Rh negative COMMENT: Rhogam at 28 weeks and prn, given 01/21/23 (10) : QUALIFIERS: Weeks of gestation: 35 weeks Qualified Code(s): Z3A.35 - 35 weeks gestation of COMMENT: Neg GBS. NIPT low risk and carrier done in past., nl anatomy of mono/di twins. tdap given (11) Vomiting affecting : PLAN: LR bolus Zofran IV DC home Charges/Coding Multi Select Codes Visit Charges Office Visit/Consults: 87556 OV L3 Est Urinary/Genital Urinary/Genital CPT Codes: 36554-22 non-stress test Interp
--- NOTE | 2023-03-18 21:39 | OB.TRI.NOTE ---
HPI - General General Date of Service: 03/18/23 HPI Narrative NABIL MEJIA, is a 22 F at 36.0 weeks who presents with nausea and vomiting. Maternal Data Information DERICK Calculator Estimated Delivery Date Method Current WG Current Estimate 04/15/23 Manual 36w 0d per MFM US Other Estimates 04/26/23 LMP (Certain) 34w 3d # 2 Final DERICK: 04/15/23 Final DERICK Source: US >20 weeks Gestational age: 36.0 weeks [facility] Medical History Anemia Chondromalacia patellae, left knee Foot pain, left Internal derangement of left knee Left ankle sprain Left knee pain No significant family history No significant medical problems Pap smear to confirm normal after abnormal result Peroneal tendonitis of left lower extremity care and examination Rh negative status during Vaginal delivery Home Medications famotidine 20 mg tablet (Pepcid) 20 mg PO Q12H #60 tabs 11/01/22 [Rx Last Taken 03/18/23 16:00 20 mg] ferrous sulfate 325 mg (65 mg iron) tablet (Feosol) 325 mg PO DAILY low iron 03/08/23 [History Last Taken 03/18/23 08:00 325 mg] nitrofurantoin macrocrystal 100 mg capsule 100 mg PO BID 7 days #14 caps 03/18/23 [Rx Last Taken Unknown] Allergy/AdvReac Type Severity Reaction Status Date / Time No Known Allergies Allergy Verified 03/18/23 18:16 Surgical History No significant past surgical history Social History household members: family housing: house number of children: 2 pets and animals: Yes sexually active: No Smoking Status: Never smoker second hand exposure: Yes alcohol intake: current alcohol intake frequency: holidays/special occasions only details: not while substance use type: does not use seatbelt use: always do you feel safe at home: Yes additional social history: Spouse: Jase History 3 Elective abortions 0 Hx Para 2 Spontaneous abortions 0 Hx # Term Pregnancies 1 Ectopic pregnancies 0 Hx # Pregnancies 1 Multiple births # of living children 2 Past Pregnancies Del. Date Name GA/Weeks Outcome Route Bth Weight Gen Labor Lgth Anesthesia Del Micheleatn Provider FOB 02/29/20 Tia 36 live - 6lbs 9oz Female 13 hours epidural [facility] in [place], [place] Dr. Mckinley 05/02/21 Alexsandra 39 live - full term Female [facility] Dr. Lexx Brothers Delivery Date: 02/29/20 Last Updated by: Concha Lopez PROM Delivery Date: 05/02/21 Last Updated by: Regina Vela COVID Visit Details Expected Delivery Route/Plan LTCS and BS Labor Preferences- CB/BF classes: [] labor support person: [] labor intervention preferences: [] pain management options preferred: [] cut cord/dad catch: [] : [] PP control planned: [] discussed possible routes of delivery and associated risks: [] special requests: [] Plans Covid status: Flu vaccine: [] Tdap vaccine: [] Rhogam: [] LARC form signed: [] Problem list reviewed and updated with the most current plan of care details and appropriate orders placed. Relevant counseling for the gestational age provided. Continue routine care and follow up unless otherwise noted in visit notes/problem list details OB Flowsheet Initial Weight: Not Recorded Date <del>?</del> EGA Weight BP Urine Prot <del>?</del> Glucose FHR FuHt Pres Dilation <del>?</del> Effaced St Visit Note 09/06/22 <del>?</del> 8w 3d 210 lb 118/75 <del>?</del> A 170 <del>?</del> B 170 A <del>?</del> B <del>?</del> A <del>?</del> B A SM- 1 GS but early secon sacs around each pole seen, with 2 poles one measuring 7w3d the other 8w3d both with FHT present 170. subchorionic hematoma present <del>?</del> B 10/06/22 <del>?</del> 12w 5d 215 lb 2 oz 119/80 <del>?</del> A 176 <del>?</del> B 165 A <del>?</del> B <del>?</del> A <del>?</del> B A JV- mono/di twins- has follow up with mfm in 2 weeks to determine chorionicity. then q2 weeks for ASPEN and q 2-4 weeks for growth. NIPT ordered today. <del>?</del> B 11/01/22 <del>?</del> 16w 3d 221 lb 4 oz 121/81 Negative <del>?</del> Negative A 135 <del>?</del> B 150 A <del>?</del> B <del>?</del> A <del>?</del> B A SM- no vb cramping feeling better, anatomy US scheduled <del>?</del> B 11/29/22 <del>?</del> 20w 3d 233 lb 4 oz 103/76 <del>?</del> A 145 <del>?</del> B 145 A <del>?</del> B <del>?</del> A <del>?</del> B A SM- no vb cramping doin well US q 2 weeks, patient states due date changed by MFM to 04/15/23 <del>?</del> B 01/04/23 <del>?</del> 25w 4d 246 lb 8 oz 111/78 <del>?</del> A 139 <del>?</del> B 143 A Breech <del>?</del> B Breech <del>?</del> A <del>?</del> B A JV- growth yesterday showed adequate concordant growth JV- growth yesterday. showed adequate . concordant growth. wants tubal ligation and has caresource for secondary insurance. will need title 19 <del>?</del> B 01/21/23 <del>?</del> 28w 0d 251 lb 4 oz 118/70 Negative <del>?</del> Negative A 145 <del>?</del> B 140 A Cephalic <del>?</del> B Cephalic <del>?</del> A <del>?</del> B A SM- no vb lof good fm x 2 no regular ctx, desires LTCS and BS, title 19 signed. <del>?</del> B 02/01/23 <del>?</del> 29w 4d 251 lb 6 oz 111/76 Trace <del>?</del> Negative A 150 <del>?</del> B 155 A Cephalic <del>?</del> B Cephalic <del>?</del> A <del>?</del> B A SM- no vb lof good fm no regular ctx <del>?</del> B 02/14/23 <del>?</del> 31w 3d 255 lb 6 oz 119/78 Negative <del>?</del> Negative A 140 <del>?</del> B 150 A <del>?</del> B <del>?</del> A <del>?</del> B A SM- no vb lof good fm no regular ctx just doc soto <del>?</del> B 02/21/23 <del>?</del> 32w 3d 254 lb 115/75 <del>?</del> A 140 <del>?</del> B 145 A Cephalic <del>?</del> B Cephalic <del>?</del> A <del>?</del> B A SM- no vb lof good fm x 2 no regualr ctx <del>?</del> B 03/01/23 <del>?</del> 33w 4d 255 lb 2 oz 101/70 <del>?</del> A 135 <del>?</del> B 163 A Cephalic <del>?</del> B Cephalic <del>?</del> A <del>?</del> B A JV- pt recently dc from [facility] for false labor. was 3 cm last night and declines pelvic exam today. PTL precautions discussed. <del>?</del> B 03/08/23 <del>?</del> 34w 4d 254 lb 2 oz 112/71 3+ <del>?</del> Negative A 135 <del>?</del> B 140 A <del>?</del> B <del>?</del> A <del>?</del> B A SM- no vb lof good fm irregular ctx <del>?</del> B 03/15/23 <del>?</del> 35w 4d 256 lb 8 oz 103/72 Negative <del>?</del> Negative A 133 <del>?</del> B 144 A Cephalic <del>?</del> B Cephalic 3 <del>?</del> 60 A -2 <del>?</del> B A JV- no lof, vaginal bleeding, or dec fm. was on L&D this weekend for nausea and vomitting. nst was cat 1 x 2. consent for and BTL signed today, <del>?</del> B ROS Constitutional Constitutional: Reports systems reviewed and no addt'l complaints, except as documented Cardiovascular Cardiovascular: Reports systems reviewed and no addt'l complaints, except as documented Respiratory/Chest Respiratory/Chest: Reports systems reviewed and no addt'l complaints, except as documented Gastrointestinal Gastrointestinal: Reports cramping, nausea and vomiting Genitourinary Genitourinary: Reports systems reviewed and no addt'l complaints, except as documented, contractions and movement Details: present; Denies burning urination, difficulty urinating, flank pain, urinary frequency or urinary incontinence Musculoskeletal Musculoskeletal: Reports systems reviewed and no addt'l complaints, except as documented Integumentary Integumentary: Reports systems reviewed and no addt'l complaints, except as documented Neurologic Neurologic: Reports systems reviewed and no addt'l complaints, except as documented Psychiatric Psychiatric: Reports systems reviewed and no addt'l complaints, except as documented Endocrine Endocrinology: Reports systems reviewed and no addt'l complaints, except as documented Hematologic/Lymphatic Hematologic/Lymphatic: Reports systems reviewed and no addt'l complaints, except as documented Allergic/Immunologic Allergic/Immunologic: Reports systems reviewed and no addt'l complaints, except as documented Physical Exam Const alert and oriented x3 General Appearance: cooperative Resp normal respiratory effort and no retractions GI soft to palpation and non-tender Inspection: gravid Back/Spine no CVA tenderness Skin no rashes or lesions noted Neuro moves all extremities NST FHR Rate Baby A Baseline: 125 Variability:: Moderate Accelerations:: 15 x 15 Decelerations:: None NST Reactive:: Yes FHR Category:: Category I Uterine Activity:: irregular FHR Rate Baby B Baseline: 135 Variability:: Moderate Accelerations:: 15 x 15 Decelerations:: None NST Reactive:: Yes FHR Category:: Category I Assessment & Plan (1) UTI (urinary tract infection): COMMENT: culture sent PLAN: culture Macrobid (2) Anemia affecting : COMMENT: HGB 9.7 on 03/08-start iron supplement consider infusion. (3) Threatened labor: COMMENT: discharged from [facility] 02/28. seen in triage 02/28 still 2-60/-2 (4) Supervision of high-risk : COMMENT: PRR DERICK 04/15/23 boys Krystian Guillen, Alexsandra. Spouse-Jase (lorraine) (5) Contraception management: COMMENT: signed title 19 for request for salpingectomy (6) Monochorionic diamniotic twin gestation: COMMENT: echo completed, MRI ordered, Eval for twin to twin transfusion q2 weeks as well as fluid level Q2 wks 13% discordance Growth US q4 weekly NST starting at 32 weeks Deliver [facility] peds [facility] follow up after but no indication why. RLTCS BS scheduled for 03/25 @ 7:30 with JV (7) Obesity affecting : COMMENT: 1 tm GCT normal, encouraged healthy weight gain. 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 neg. 254/254 (9) Rh negative status during : QUALIFIERS: Trimester: second trimester Qualified Code(s): O26.892 - Other specified related conditions, second trimester; Z67.91 - Unspecified blood type, Rh negative COMMENT: Rhogam at 28 weeks and prn, given 01/21/23 (10) : QUALIFIERS: Weeks of gestation: 35 weeks Qualified Code(s): Z3A.35 - 35 weeks gestation of COMMENT: Neg GBS. NIPT low risk and carrier done in past., nl anatomy of mono/di twins. tdap given (11) Vomiting affecting : PLAN: LR bolus Zofran IV DC home Charges/Coding Multi Select Codes Visit Charges Office Visit/Consults: 30245 OV L3 Est Urinary/Genital Urinary/Genital CPT Codes: 50373-18 non-stress test Interp
== END 2023-03-18 22:00 | disposition home or self-care (01) ==
LOC: WPOUT 17:42 → WP 17:43
PROVIDERS: Referring Provider Advanced Practice Midwife; Visit Provider Advanced Practice Midwife
DX: O23.43 Unspecified infection of urinary tract in pregnancy, third trimester (principal); O99.013 Anemia complicating pregnancy, third trimester; O99.213 Obesity complicating pregnancy, third trimester; O21.2 Late vomiting of pregnancy; Z3A.36 36 weeks gestation of pregnancy
CPT/HCPCS: 96375; 96365; 96366 ×3; 59025; 59050; 81002; 87086; 87088; 99221; J7120; G0378; J2405

== ENCOUNTER 2023-03-25 05:00 | Inpatient (IN) | payer BC, MEDICAID, SELFPAY ==
--- NOTE | 2023-03-20 11:15 | HP.PCM.OB_ITS ---
HPI - General HPI Narrative NABIL MEJIA, is a 22 F who presents for twin c section positive fht x 2. both vertex requesting primary LTCS and BS Maternal Data Information DERICK Calculator Estimated Delivery Date Method Current WG Current Estimate 04/15/23 Manual 36w 2d per MFM US Other Estimates 04/26/23 LMP (Certain) 34w 5d # 2 PFSH PFSH Medical History Anemia Chondromalacia patellae, left knee Foot pain, left Internal derangement of left knee Left ankle sprain Left knee pain No significant family history No significant medical problems Pap smear to confirm normal after abnormal result Peroneal tendonitis of left lower extremity care and examination Rh negative status during Vaginal delivery Home Medications famotidine 20 mg tablet (Pepcid) 20 mg PO Q12H #60 tabs 11/01/22 [Rx Last Taken 03/18/23 16:00 20 mg] ferrous sulfate 325 mg (65 mg iron) tablet (Feosol) 325 mg PO DAILY low iron 03/08/23 [History Last Taken 03/18/23 08:00 325 mg] nitrofurantoin macrocrystal 100 mg capsule 100 mg PO BID 7 days #14 caps 03/18/23 [Rx Last Taken Unknown] Allergy/AdvReac Type Severity Reaction Status Date / Time No Known Allergies Allergy Verified 03/18/23 18:16 Surgical History No significant past surgical history Social History household members: family housing: house number of children: 2 pets and animals: Yes sexually active: No Smoking Status: Never smoker second hand exposure: Yes alcohol intake: current alcohol intake frequency: holidays/special occasions only details: not while substance use type: does not use seatbelt use: always do you feel safe at home: Yes additional social history: Spouse: Jase History 3 Elective abortions 0 Hx Para 2 Spontaneous abortions 0 Hx # Term Pregnancies 1 Ectopic pregnancies 0 Hx # Pregnancies 1 Multiple births # of living children 2 Past Pregnancies Del. Date Name GA/Weeks Outcome Route Bth Weight Gen Labor Lgth Anesthesia Del Locatn Provider FOB 02/29/20 Tia 36 live - 6lbs 9oz Female 13 romero rs epidural [facility] in [place], [place] Dr. Mckinley 05/02/21 Alexsandra 39 live - full term Female [facility] Dr. Lexx Brothers Delivery Date: 02/29/20 Last Updated by: Concha Lopez PROM Delivery Date: 05/02/21 Last Updated by: Regina Vela COVID Visit Details Expected Delivery Route/Plan LTCS and BS Labor Preferences- CB/BF classes: [] labor support person: [] labor intervention preferences: [] pain management options preferred: [] cut cord/dad catch: [] : [] PP control planned: [] discussed possible routes of delivery and associated risks: [] special requests: [] Plans Covid status: Flu vaccine: [] Tdap vaccine: [] Rhogam: [] LARC form signed: [] Problem list reviewed and updated with the most current plan of care details and appropriate orders placed. Relevant counseling for the gestational age provided. Continue routine care and follow up unless otherwise noted in visit notes/problem list details OB Flowsheet Initial Weight: Not Recorded Date -?-?-?-?-?-?-?-?-?-?-?-?- EGA Weight BP Urine Prot -?-?-?-?-?-?-?-?-?-?-?-?- Glucose FHR FuHt Pres Dilation -?-?-?-?-?-?-?-?-?-?-?-?- Effaced St Visit Note 09/06/22 -?-?-?-?-?-?-?-?-?-?-?-?- 8w 3d 210 lb 118/75 -?-?-?-?-?-?-?-?-?-?-?-?- A 170 -?-?-?-?-?-?-?-?-?-?-?-?- B 170 A -?-?-?-?-?-?-?-?-?-?-?-?- B -?-?-?-?-?-?-?-?-?-?-?-?- A -?-?-?-?-?-?-?-?-?-?-?-?- B A SM- 1 GS but ear ly secon sacs around each pole seen, with 2 poles one measuring 7w3d the other 8w3d both with FHT present 170. subchorionic hematoma present -?-?-?-?-?-?-?-?-?-?-?-?- B 10/06/22 -?-?-?-?-?-?-?-?-?-?-?-?- 12w 5d 215 lb 2 oz 119/80 -?-?-?-?-?-?-?-?-?-?-?-?- A 176 -?-?-?-?-?-?-?-?-?-?-?-?- B 165 A -?-?-?-?-?-?-?-?-?-?-?-?- B -?-?-?-?-?-?-?-?-?-?-?-?- A -?-?-?-?-?-?-?-?-?-?-?-?- B A JV- mono/di twin s- has follow up with mfm in 2 weeks to determine chorionicity. then q2 weeks for ASPEN and q 2-4 weeks for growth. NIPT ordered today. -?-?-?-?-?-?-?-?-?-?-?-?- B 11/01/22 -?-?-?-?-?-?-?-?-?-?-?-?- 16w 3d 221 lb 4 oz 121/81 Nega tive -?-?-?-?-?-?-?-?-?-?-?-?- Negative A 135 -?-?-?-?-?-?-?-?-?-?-?-?- B 150 A -?-?-?-?-?-?-?-?-?-?-?-?- B -?-?-?-?-?-?-?-?-?-?-?-?- A -?-?-?-?-?-?-?-?-?-?-?-?- B A SM- no vb diana flower feeling better, anatomy US scheduled -?-?-?-?-?-?-?-?-?-?-?-?- B 11/29/22 -?-?-?-?-?-?-?-?-?-?-?-?- 20w 3d 233 lb 4 oz 103/76 -?-?-?-?-?-?-?-?-?-?-?-?- A 145 -?-?-?-?-?-?-?-?-?-?-?-?- B 145 A -?-?-?-?-?-?-?-?-?-?-?-?- B -?-?-?-?-?-?-?-?-?-?-?-?- A -?-?-?-?-?-?-?-?-?-?-?-?- B A SM- no vb diana flower doin well US q 2 weeks, patient states due date changed by MFM to 04/15/23 -?-?-?-?-?-?-?-?-?-?-?-?- B 01/04/23 -?-?-?-?-?-?-?-?-?-?-?-?- 25w 4d 246 lb 8 oz 111/78 -?-?-?-?-?-?-?-?-?--?-?-?- A 139 -?-?-?-?-?-?-?-?-?-?-?-?- B 143 A Breech -?-?-?-?-?-?-?-?-?-?-?-?- B Breech -?-?-?-?-?-?-?-?-?-?-?-?- A -?-?--?-?-?-?-?-?-?-?-?-?- B A JV- growth yeste rday showed adequate concordant growth JV- growth yesterday. showed adequate . concordant growth. wants tubal ligation and has caresource for secondary insurance. will need title 19 -?-?-?-?-?-?-?-?-?-?-?-?- B 01/21/23 -?-?-?-?-?-?-?-?-?-?-?-?- 28w 0d 251 lb 4 oz 118/70 Nega tive -?-?-?-?-?-?-?-?-?-?-?-?- Negative A 145 -?-?-?-?-?-?-?-?-?-?-?-?- B 140 A Cephalic -?-?-?-?-?-?-?-?-?-?-?-?- B Cephalic -?-?-?-?-?-?-?-?-?-?-?-?- A -?-?-?-?-?-?-?-?-?-?-?-?- B A SM- no vb lof go od fm x 2 no regular ctx, desires LTCS and BS, title 19 signed. -?-?-?-?-?-?-?-?-?-?-?-?- B 02/01/23 -?-?-?-?-?-?-?-?-?-?-?-?- 29w 4d 251 lb 6 oz 111/76 Trac e -?-?-?-?-?-?-?-?-?-?-?-?- Negative A 150 -?-?-?-?-?-?-?-?-?-?-?-?- B 155 A Cephalic -?-?-?-?-?-?-?-?-?-?-?-?- B Cephalic -?-?-?-?-?-?-?-?-?-?-?-?- A -?-?-?-?-?-?-?-?-?-?-?-?- B A SM- no vb lof go od fm no regular ctx -?-?-?-?-?-?-?-?-?-?-?-?- B 02/14/23 -?-?-?-?-?-?-?-?-?-?-?-?- 31w 3d 255 lb 6 oz 119/78 Nega tive -?-?-?-?-?-?-?-?-?-?-?-?- Negative A 140 -?-?-?-?-?-?-?-?-?-?-?-?- B 150 A -?-?-?-?-?-?-?-?-?-?-?-?- B -?-?-?-?-?-?-?-?-?-?-?-?- A -?-?-?-?-?-?-?-?-?-?-?-?- B A SM- no vb lof go od fm no regular ctx just doc soto -?-?-?-?-?-?-?-?-?-?-?-?- B 02/21/23 -?-?-?-?-?-?-?-?-?-?-?-?- 32w 3d 254 lb 115/75 -?-?-?-?-?-?-?-?-?-?-?-?- A 140 -?-?-?-?-?-?-?-?-?-?-?-?- B 145 A Cephalic -?-?-?-?-?-?-?-?-?-?-?-?- B Cephalic -?-?-?-?-?-?-?-?-?-?-?-?- A -?-?-?-?-?-?-?-?-?-?-?-?- B A SM- no vb lof go od fm x 2 no regualr ctx -?-?-?-?-?-?-?-?-?-?-?-?- B 03/01/23 -?-?-?-?-?-?-?-?-?-?-?-?- 33w 4d 255 lb 2 oz 101/70 -?-?-?-?-?-?-?-?-?-?-?-?- A 135 -?-?-?-?-?-?-?-?-?-?-?-?- B 163 A Cephalic -?-?-?-?-?-?-?-?-?-?-?-?- B Cephalic -?-?-?-?-?-?-?-?-?-?-?-?- A -?-?-?-?-?-?-?-?-?-?-?-?- B A JV- pt recently dc from [facility] for false labor. was 3 cm last night and declines pelvic exam today. PTL precautions discussed. -?-?-?-?-?-?-?-?-?-?-?-?- B 03/08/23 -?-?-?-?-?-?-?-?-?-?-?-?- 34w 4d 254 lb 2 oz 112/71 3+ -?-?-?-?-?-?-?-?-?-?-?-?- Negative A 135 -?-?-?-?-?-?-?-?-?-?-?-?- B 140 A -?-?-?-?-?-?-?-?-?-?--?-?- B -?-?-?-?-?-?-?-?-?-?-?-?- A -?-?-?-?-?-?-?-?-?-?-?-?- B A SM- no vb lof go od fm irregular ctx -?-?-?-?-?-?-?-?-?-?-?-?- B 03/15/23 -?-?-?-?-?-?-?-?-?-?-?-?- 35w 4d 256 lb 8 oz 103/72 Nega tive -?-?-?-?-?-?-?-?-?-?-?-?- Negative A 133 -?-?-?-?-?-?-?-?-?-?-?-?- B 144 A Cephalic -?-?-?-?-?-?-?-?-?-?-?-?- B Cephalic 3 -?-?-?-?-?-?-?-?-?-?-?-?- 60 A -2 -?-?-?-?-?-?-?-?-?-?-?-?- B A JV- no lof, vagi nal bleeding, or dec fm. was on L&D this weekend for nausea and vomitting. nst was cat 1 x 2. consent for and BTL signed today, -?-?-?-?-?-?-?-?-?-?-?-?- B ROS Constitutional Constitutional: Reports systems reviewed and no addt'l complaints, except as documented Eyes Eyes: Denies change in vision ENT HEENT: Reports systems reviewed and no addt'l complaints, except as documented; Denies headache(s) Cardiovascular Cardiovascular: Reports systems reviewed and no addt'l complaints, except as documented; Denies chest pain or dyspnea Respiratory/Chest Respiratory/Chest: Reports systems reviewed and no addt'l complaints, except as documented Gastrointestinal Gastrointestinal: Reports systems reviewed and no addt'l complaints, except as documented; Denies abdominal pain Genitourinary Genitourinary: Reports systems reviewed and no addt'l complaints, except as documented, contractions Details: present (irregular) and movement Details: present; Denies dysuria or genital lesions Musculoskeletal Musculoskeletal: Reports systems reviewed and no addt'l complaints, except as documented Neurologic Neurologic: Reports systems reviewed and no addt'l complaints, except as documented Endocrine Endocrinology: Reports systems reviewed and no addt'l complaints, except as documented Physical Exam Const alert, oriented x3, no apparent distress and healthy appearing HEENT normocephalic and moist oral mucous membranes Head and Scalp: atraumatic Neck full ROM, no lymphadenopathy, supple and thyroid normal General: trachea midline Lymph Lymphatic: no lymphadenopathy noted Chest inspection of chest normal Resp normal respiratory effort Cardio regular rate GI normal to inspection, nondistended, normoactive bowel sounds, soft to palpation and non-tender Inspection: gravid Extremity normal to inspection General Extremity: Negative for edema Skin no rashes or lesions noted Neuro no focal motor deficits and deep tendon reflexes 2+ bilaterally Motor Exam: strength 5/5 throughout and clonus absent Psych mental status grossly normal Labs Labs Labs: Blood Type A NEGATIVE Antibody Screen POSITIVE Hct 32.3 % (37-47) L Hgb 9.7 g/dL (12.0-15.0) L Obstetrics US Syphilis Total Ab Non-reactive Rubella IgG Antibody Reactive (Nonreactive) Hep Bs Antigen Non-Reactive (Nonreactive) Chlamydia DNA (ARIELLA) Negative (Negative) Neisseria gonorrhoeae DNA (ARIELLA) Negative (Negative) HIV 1&2 Antibody Non-Reactive (Nonreactive) Glucose 1 Hr 50 gm 125 mg/dL (70-140) Group B Strep DNA Negative (Negative) Assessment & Plan (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 neg. 254/254 (2) Monochorionic diamniotic twin gestation: COMMENT: echo completed, MRI ordered, Eval for twin to twin transfusion q2 weeks as well as fluid level Q2 wks 13% discordance Growth US q4 weekly NST starting at 32 weeks Deliver at 37 weeks [facility] recommends peds cardio follow up after but no indication why. RLTCS BS scheduled for 03/25 @ 7:30 with [facility] (3) Supervision of high-risk : COMMENT: PRR DERICK 04/15/23 boys Krystian Guillen Lexi. Spouse-Jase (lorraine) (4) Contraception management: COMMENT: signed title 19 for request for salpingectomy (5) Cerebral ventriculomegaly of fetus: COMMENT: both infants-mild, with out macrocephaly. following with [facility] (6) Threatened labor: COMMENT: [facility]. seen in triage 02/28 still 2-360/-2 (7) Anemia affecting : COMMENT: HGB 9.7 on 03/08-start iron supplement consider infusion. (8) : QUALIFIERS: Weeks of gestation: 35 weeks Qualified Code(s): Z3A.35 - 35 weeks gestation of COMMENT: Neg GBS. NIPT low risk and carrier done in past., nl anatomy of mono/di twins. tdap given (9) Rh negative status during : QUALIFIERS: Trimester: second trimester Qualified Code(s): O26.892 - Other specified related conditions, second trimester; Z67.91 - Unspecified blood type, Rh negative COMMENT: Rhogam at 28 weeks and prn, given 01/21/23 (10) Obesity affecting : COMMENT: 1 tm GCT normal, encouraged healthy weight gain. PLAN: Plan plan LTCS and BS After discussing the patient's diagnosis and treatment plan options, patient wishes to proceed with surgical management. I have discussed with the patient the risks, benefits, and alternatives of the procedure which include but are not limited to risks of anesthesia, bleeding, infection, possible damage to bowel, bladder, or surrounding vasculature which could lead to additional surgery to evaluate any complications. Patient agrees to procedure and wishes to proceed. ACOG/uptodate references given for additional information regarding procedure.
[2023-03-25] VITALS (22 sets, daily range): BP systolic 89–131; BP diastolic 39–78; PULSE 59–116; RESP 12–17; TEMP 36.1–36.5; O2SAT 96–98; BMI 38.0; BMI 38.1
--- NOTE | 2023-03-25 | PLAC_PTH ---
PATIENT: NABIL MEJIA LOC: [facility] U#:[id number] AGE/SX: 22/F ROOM: WP006 RE03/25/[address]: Dr. Shari Hallman MD : 2000 BED: 1 DIS: 03/28/2023 SPEC #: [id number] RECD: 03/25/23 12:55 STATUS: RENE MELISSA #: [id number] KHURRAM: 03/25/23 00:[address]: Shari Hallman DEPT: SURGICAL PATHOLOGY RECD BY: Ghanshyam Shah ENTERED: 03/25/23 12:55 SP TYPE: PLACENTA OTHR DR: No Primary Care Phys Tissues: A - Fallopian tube B - Placenta, NOS Procedures: Surgery Specimen Level II Surgery Specimen Level V HEADER OPERATION: Tubal ligation, Primary section PRE-OP DIAGNOSIS: Sterilization, twins TISSUE SUBMITTED: A - Fallopian tubes, suture in right tube, B - Placenta MICROSCOPIC DIAGNOSIS A. Right and left fallopian tubes, bilateral salpingectomies: Right fallopian tube - complete cross-sections with no pathologic change. Left fallopian tube - complete cross-sections with no pathologic change. B. Diamniotic, monochorionic twin placenta (770 gm). Placental side designated A Umbilical cord - trivascular with no inflammation. Placental membranes - minimal chronic decidual inflammation. Placental disc - mildly increased intraparenchymal fibrin plaques and Meet change. Focal organizing intraparenchymal hemorrhage. Placental side designated B Umbilical cord - trivascular with no inflammation. Placental membranes - No pathologic change. Placental disc - intervillous congestion and mildly increased intraparenchymal microcalcifications. AM:eliana 03/29/2023 MICROSCOPIC DESCRIPTION Slides are reviewed. GROSS DESCRIPTION A - Received in fixative is one container labeled with the patient's name and designated bilateral fallopian tubes. The specimen consists of two fallopian tubes with an average length of 7.0 cm and has an average diameter of 1.0 cm. Both fallopian tubes have normal fimbriated ends. No mass lesions are identified. Sink Cutter sections are submitted in two cassettes as follows: 1 - fallopian tube with suture, 2 - fallopian tube without suture. B - SPECIMEN: TWIN PLACENTA / CLINICAL INFORMATION: A. Weight: A - 2.615 kg; B - 2.745 kg B. Gestational Age: 37 weeks C. Sex: A - Male, B - Male The specimen consists of a single placental disc with two attached membranes, dividing membrane and peripheral membranes. No identifying clip is present. Both umbilical cords have a near marginal insertion. PLACENTAL WEIGHT (POST FIXATION): 770 gm PLACENTAL DIMENSIONS: 21.0 x 19.0 x 4.5 cm PLACENTAL SHAPE: Usual ovoid PLACENTAL WEIGHT FOR GESTATIONAL AGE: Within 10-99th percentile PLACENTA A: MEMBRANES - Present A. Insertion: Marginal B. Site of rupture from edge: At edge of placental disc C. Color of membrane: Dumont-smith D. Abnormalities: None UMBILICAL CORD - Present A. Color: Dumont-smith B. Insertion: Marginal C. Length: 45.0 cm D. Diameter: 1.2 cm E. Number of vessels: Three F. Abnormalities: None PLACENTA B: MEMBRANES - Present A. Insertion: Marginal B. Site of rupture from edge: At edge of placental disc C. Color of membrane: Dumont-smith D. Abnormalities: None UMBILICAL CORD - Present A. Color: Dumont-smith B. Insertion: Marginal C. Length: 47.0 cm D. Diameter: 1.2 cm E. Number of vessels: Three F. Abnormalities: None Serial sections of placental disc near placental cord designated A contains a plaque-like white lesion close to the surface and measures 1.0 x 0.6 x 0.6 cm. Serial sections of placental disc close to placental cord designated B does not contain mass lesions. PLACENTAL DISC - Present A. Color of surface: Dumont-smith B. surface abnormalities: None C. Maternal cotyledons: Intact with minimal tears D. Attached retro placental clot: No clot E. Cut surface: Dark red and spongy F. Lesions: None G. Separate clot: Absent SECTIONS SUBMITTED: 11 cassettes 1. Dividing membrane and placental side A 2. Umbilical cord designated A, end inked black 3. Peripheral membranes designated A 4. Umbilical cord designated B, end inked black 5. Placental membranes designated B 6-8. Placental disc side A -11. Placental disc side B AM:eliana 03/28/2023 TC:5 CPT: 05400 x2, 33085 x2
[2023-03-25 05:39] LABS: Absolute Lymphocyte Count 1.98 X10^3/uL (0.83-4.51); Absolute Neutrophil Count 6.4 X10^3/uL (2.0-7.7); Basophil# 0.04 X10^3/uL; Basophil% 0.4 % (0-1); Eosinophil# 0.11 X10^3/uL; Eosinophils% 1.2 % (0-5); Hematocrit 32.5 % (37-47); Hemoglobin 9.5 g/dL (12.0-15.0); Lymphocyte # 1.98 X10^3/ul (0.83-4.51); Lymphocyte % 21.2 % (19-41); Mean Corp Hgb Conc 29.2 g/dL (32-36); Mean Corpuscular Hgb 23.2 pg (27.0-32.0); Mean Corpuscular Volume 79.5 fL (81-99); Monocyte# 0.72 X10^3/uL; Monocyte% 7.7 % (0-10); NRBC Flagged by Analyzer 0 % (0-5); Neutrophil # 6.37 X10^3/uL (2.7-7.7); Neutrophil % 68.4 % (47-70); Platelet Count 247 K/mm3 (150-450); RBC Distribution Width CV 17.2 % (11.6-14.6); RBC Distribution Width SD 49.3 fl (35.1-43.9); Red Blood Count 4.09 M/mm3 (4.2-5.4); White Blood Count 9.3 K/mm3 (4.4-11.0)
[2023-03-25] MEDS: Lactated Ringers 1,000 ML 999 ML IV (05:40)
[2023-03-25] MEDS: Acetaminophen 500 MG Tablet 1000 MG PO ×3 (05:46→17:33)
[2023-03-25] MEDS: Sodium Citrate/Citric Acid 30 ML UDC PO (05:46)
[2023-03-25] MEDS: Lactated Ringers 1,000 ML 150 ML IV ×2 (06:39→07:00)
--- NOTE | 2023-03-25 07:27 | EX.PCM.OBRPT ---
Assessment & Plan (1) Anemia affecting : COMMENT: HGB 9.7 on 03/08-start iron supplement consider infusion. (2) Cerebral ventriculomegaly of fetus: COMMENT: both infants-mild, with out macrocephaly. following with [facility] (3) Contraception management: COMMENT: signed title 19 for request for salpingectomy (4) Supervision of high-risk : COMMENT: PRR DERICK 04/15/23 boys Krystian Guillen, Alexsandra. Spouse-Jase (lorraine) (5) Monochorionic diamniotic twin gestation: COMMENT: echo completed, MRI ordered, Eval for twin to twin transfusion q2 weeks as well as fluid level Q2 wks 13% discordance Growth US q4 weekly NST starting at 32 weeks Deliver at 37 weeks [facility] recommends peds cardio follow up after but no indication why. 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 neg. 254/254 (7) Obesity affecting : COMMENT: 1 tm GCT normal, encouraged healthy weight gain. (8) Rh negative status during : QUALIFIERS: Trimester: second trimester Qualified Code(s): O26.892 - Other specified related conditions, second trimester; Z67.91 - Unspecified blood type, Rh negative COMMENT: Rhogam at 28 weeks and prn, given 01/21/23 (9) : QUALIFIERS: Weeks of gestation: 35 weeks Qualified Code(s): Z3A.35 - 35 weeks gestation of COMMENT: Neg GBS. NIPT low risk and carrier done in past., nl anatomy of mono/di twins. tdap given Maternal Data Information DERICK Calculator Estimated Delivery Date Method Current WG Current Estimate 04/15/23 Manual 37w 0d per [facility] US Other Estimates 04/26/23 LMP (Certain) 35w 3d # 2 Final DERICK Source: LMP Details Operative Information Date of Procedure: 03/25/23 Pre-Operative Diagnosis: Previous Post-Operative Diagnosis: same Indications for : Repeat Elective (and BS) Indications Narrative: Surgeon: Shari Hallman MD Classification: Scheduled Procedure Type: low transverse Type of Anesthesia: Spinal Special Medications: none Antibiotic Given: Ancef 2 grams IV x1 Drain: Santo to straight drain Fluids Replaced: crystalloid Findings Description of Procedure: . Spinal anesthesia was placed without difficulty. Santo catheter was placed. The patient was placed in the dorsal supine position with leftward tilt. Patient was prepped and draped in the normal sterile fashion. Pfannenstiel skin incision was made with the scalpel and carried through to the underlying layer of fascia with the scalpel. Fascia was nicked in the midline and the incision extended laterally. The rectus bellies were dissected off superiorly and inferiorly with out complication both sharply and bluntly. The peritoneum was entered digitally. The incision was stretched and a low transverse uterine incision was made with the scalpel. The 's head was delivered atraumatically followed by the anterior and posterior shoulders without complication the rest of the delivered. The cord was clamped and cut and the infant was handed off to awaiting nurse. second bag of water ruptured and infants head delivered without complication, followed by the rest of the infant. delayed cord clamping employed and then cord clamped and cut, infant handed to awaiting nurse. The placenta was delivered spontaneously immediately following and was noted to be intact and have a three-vessel cord. The uterus was exteriorized cleared of all clots and debris, and the incision was closed in a single layer closure using #1 Monocryl. The ovaries and fallopian tubes were noted to be within normal limits. Patient had desired sterilization and was counseled preoperatively regarding irreversibility and permanency. Therefore bilateral fallopian tubes were elevated and transected across using a LigaSure device starting proximally to distally without complication the entire fallopian tubes were removed. The uterus was returned to the maternal abdomen and gutters were cleared of all clots and debris. The peritoneum was closed with 3-0 Monocryl in a running fashion. Gloves were changed prior to fascial closure. Fascia was closed with 0 PDS in a running fashion. Subcutaneous tissue was copiously irrigated and the skin was closed with 3-0 Monocryl in a subcuticular fashion. Mepilex dressing was applied without complication. Amniotic Membrane Rupture Type: Artificial Amniotic Fluid Description: Clear Placenta Disposition: [facility] Cord Vessel Description: 3 Vessels Delayed Cord Clamping: Yes Complications Risks of Surgery Discussed w/Patient: Bleeding, Infection, Need for Future C-Sections and Injury to surrounding structure(s) including bowel and bladder Vaginal Delivery Complication Complications: None Admit VTE Documentation VTE Present on Admission: No VTE Mechan Device Prophylaxis: SCD's Multi Select Codes Urinary/Genital Urinary/Genital CPT Codes: 67945 C/S+TL and 84720 delivery+PP Care(TAYLOR) (twins)
--- NOTE | 2023-03-25 07:33 | DCINST_ITS ---
Discharge Instructions Diet Discharge Diet: No restrictions Activity Discharge Activity: May Not Drive (for 2 weeks or while taking narcotic pain medications.), May Shower and May Take a Tub Bath (in 7 days) May shower in (days): 0 May resume sexual activity in: 4-6 weeks Weight Bearing Status: Full weight bearing Lifting Restrictions: 20 pounds Dressing / Incision Call your doctor if your incision/area has: Continuous Slow Oozing, Sudden Increased Bleeding, Increased Pain/ Swelling, Increased Redness and Foul Smelling Discharge Call your doctor if you observe: Fever of 101 or Higher and Using more than 1 pad per hour (for 2 hours) Suture Line Care: Avoid Pulling/Pushing and Avoid Pinching/Bending Cleanse incision/area with: Soap & Water and Keep Dressing Clean & Dry Follow Up Care Please Follow Up With: Shari Hallman MD When: Call [phone] to make an appointment for an incision check in 1-2 weeks. Test Results: Test results from this visit will be discussed in further detail at your follow- up appointment, if applicable. Discharge Plan Admission Admit Date/Time: 03/25/23 05:00 Attending Provider: Shari Hallman Primary Care Provider: Care PhysicianRhonda Primary Discharge Orders/Prescriptions Prescriptions: New oxycodone-acetaminophen [Percocet] 5-325 mg tablet 1 tab PO Q6H PRN (Reason: pain) 7 Days Qty: 20 0RF naproxen [naproxen] 500 mg tablet 500 mg PO BID PRN PRN (Reason: Pain) Qty: 30 1RF No Action famotidine [Pepcid] 20 mg tablet 20 mg PO Q12H Qty: 60 6RF nitrofurantoin macrocrystal 100 mg capsule 100 mg PO BID 7 Days Qty: 14 0RF Rx Instructions: must administer with a meal/food ferrous sulfate [Feosol] 325 mg (65 mg iron) tablet 325 mg PO DAILY Referrals / Follow Up: Care Physician,No Primary [Primary Care Provider] - Disposition Disposition (needs filled in before D/C Order can be placed): Home, Self Care
[2023-03-25] MEDS: Cefazolin 2 GM in 0.9% Normal Saline (100mL Bag) 100 ML IV (07:35)
[2023-03-25] MEDS: Oxytocin 15 Units/NS 250ml 15 UNITS/250 ML IV.SOLN 83 UNITS IV (08:30)
[2023-03-25 09:19] LABS: Syphilis Antibodies Non-reactive
[2023-03-25] MEDS: Ketorolac 30 MG/ML Syringe IV ×3 (09:55→22:32)
[2023-03-25 10:18] LABS: Pathology Specimen OB SEE PATHOLOGY REPORT
[2023-03-25] MEDS: Lactated Ringers 1,000 ML 100 ML IV (11:14)
[2023-03-25] MEDS: Senna/Docusate Sodium 1 Tablet PO (14:14)
[2023-03-25] MEDS: 0.9% Saline Lock 10 ML Syringe IV ×2 (16:03→22:32)
[2023-03-25] MEDS: Enoxaparin 40 MG/0.4 ML Syringe SC (21:11)
[2023-03-26] MEDS: Acetaminophen 500 MG Tablet 1000 MG PO ×4 (00:03→18:08)
[2023-03-26 00:22] VITALS: BP 116/59; PULSE 80; RESP 14; TEMP 36.2; O2SAT 96
[2023-03-26] MEDS: Ketorolac 30 MG/ML Syringe IV (04:16)
[2023-03-26] MEDS: 0.9% Saline Lock 10 ML Syringe IV (04:18)
[2023-03-26 04:35] VITALS: BP 122/66; PULSE 67; RESP 17; TEMP 36.4; O2SAT 96
[2023-03-26 06:37] LABS: Hematocrit 27.1 % (37-47); Hemoglobin 8.3 g/dL (12.0-15.0); Mean Corp Hgb Conc 30.6 g/dL (32-36); Mean Corpuscular Hgb 24.2 pg (27.0-32.0); Mean Platelet Vol. 10.6 fl (6.2-12.0); Platelet Count 185 K/mm3 (150-450); RBC Distribution Width CV 17.2 % (11.6-14.6); RBC Distribution Width SD 49.2 fl (35.1-43.9); Red Blood Count 3.43 M/mm3 (4.2-5.4); White Blood Count 12.5 K/mm3 (4.4-11.0)
[2023-03-26 07:52] VITALS: BP 116/73; PULSE 89; RESP 16; TEMP 36.4; O2SAT 97
[2023-03-26] MEDS: oxyCODONE 5 MG Tablet PO ×3 (08:02→19:04)
--- NOTE | 2023-03-26 08:02 | PCM.PN.OB ---
Subjective Subjective Patient doing well without complaints. Tolerating PO. Ambulating and voiding without difficulty. Feeding well. Denies chest pain, shortness of breath, calf pain/swelling, fevers, chills, lightheadedness. Objective Data Objective Data Vital Signs: Vital Signs Temp Pulse Resp BP Pulse Ox O2 Del Method 97.5 F L 89 16 116/73 97 Room Air 03/26/23 07:52 03/26/23 07:52 03/26/23 07:52 03/26/23 07:52 03/26/23 07:52 03/26/23 07:52 Oxygen Delivery Method Room Air Weight: 258 lb 3.2 oz Body Mass Index (BMI) 38.1 Intake & Output: Intake and Output for Last 24 Hours 03/24/23 03/25/23 03/26/23 23:59 23:59 23:59 Intake Total 2137.35 / 2137.35 Output Total 1950 / 1950 1000 / 1000 Balance 187.35 / 187.35 -1000 / -1000 Lab / Micro Data 03/26/23 06:30 Labs: Laboratory Results - last 24 hr 03/25/23 05:24: Syphilis Total Ab Non-reactive 03/25/23 11:04: Screen NEGATIVE, Baby's Blood Type A POSITIVE, Baby's KIERA NEGATIVE 03/26/23 06:30: WBC 12.5 H, RBC 3.43 L, Hgb 8.3 L, Hct 27.1 L, MCV 79.0 L, MCH 24.2 L, MCHC 30.6 L, RDW Std Deviation 49.2 H, RDW Coeff of Tosin 17.2 H, Plt Count 185, MPV 10.6 ROS Constitutional Constitutional: Reports systems reviewed and no addt'l complaints, except as documented Cardiovascular Cardiovascular: Denies chest pain, dizziness, dyspnea or irregular heart rhythm Respiratory/Chest Respiratory/Chest: Denies cough, pain on inspiration or shortness of breath at rest Gastrointestinal Gastrointestinal: Denies abdominal pain, nausea or vomiting Genitourinary Genitourinary: Denies burning urination Musculoskeletal Musculoskeletal: Denies muscle cramps, muscle spasms or muscle weakness Neurologic Neurologic: Denies confusion, dizziness, headache(s) or lack of coordination Psychiatric Psychiatric: Denies anxiety, behavioral changes or depression Physical Exam HEENT normocephalic Resp normal respiratory effort and normal air movement GI soft to palpation, non-tender and non-distended Rectal Exam: other Other Details: Incision is clean, dry, and intact no CVA tenderness Extremity normal to inspection General Extremity: edema bilateral (trace ) Assessment & Plan (1) delivery delivered: COMMENT: LTCS BS twins Wilmer Boland (2) Status post bilateral salpingectomy: (3) Rh negative status during : QUALIFIERS: Trimester: second trimester Qualified Code(s): O26.892 - Other specified related conditions, second trimester; Z67.91 - Unspecified blood type, Rh negative COMMENT: Rhogam at 28 weeks and prn, given 01/21/23 PLAN: Plan s/p LTCS PPD # 1 twin section with BTL 1. routine post care 2. breast feeding- support given 3. rh neg- rhogam given 4. rubella immune 5. continue supportive are. dc to home tomorrow or tuesday
[2023-03-26] MEDS: Senna/Docusate Sodium 1 Tablet PO (10:42)
[2023-03-26] MEDS: Naproxen 500 MG Tablet PO ×2 (10:43→18:08)
--- NOTE | 2023-03-26 11:40 | CASEMGMT ---
Social Work Assessment Labor and Delivery Unit Patient Address: [address] [place] Phone number: [phone] Date of Referral: 03/26/23 Time of Referral:? 7:26 Referred By: Lexx Date of Intervention: 03/26/23? Time of Intervention:? 11:40 Reason for Referral: resources History obtained from: medical records, mother of baby (MOB) and father of baby (FOB) Household composition: MOB reports she and her are currently living with paternal grandparents while they look for a house. MOB reports 3 children with FOB (NB twins and Alexsandra, 2 yrs old), one child for FOB (Ally, 13) and one child from MOB (Tia, 3 yrs old). MOB explained the three girls share a room and NB will be sharing a room with MOB and FOB. SHAY is actively looking for housing and working with [employer] for assistance. Patient's parent/guardian status: MOB reports she has been to FOPaola, Zev, for 1 year but together 3 years. FOPaola is actively involved with children and is self employed. MOB reports no concerns with DV, AOD or MH for FOB. Medical History: SHAY was engaged in care with [place] [facility] starting around 8 weeks. MOB reports this is her third that resulted in the of their third and fourth child, NBs, Krystian and Wilmer. Krystian and Wilmer were born [birth year] at 7:47 and 7:48. Krystian weighed 2615 g and APGARS 7/8. Wilmer weighed 2745 g and APGARS 4/8. MOB report NB?s bariatric surgeon will be a MD [place]. MOB reports having her tubes removed. Educational Status: SHAY is currently enrolled in college for Business degree, no learning concerns. ? 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 FOB is self-employed and looking at additional job; plans to take time off as needed to assist with NBs. Supplies: MOB reports having all the supplies needed including a car seat, twin pack n play in their bedroom, clothes and diapers/wipes. MOB reports NB will transition to their own room when appropriate and able. Childcare/Caregiver(s): MOB reports she will be home with NBs until May and then NBs will be care for by previously established auto service instructor. ? Transportation: MOB report they one vehicle, no concerns. ?? Programs/Agencies Involved: ??MOB reports they are active with [facility], [facility] and [facility] for insurance and food stamps. ? Children Services/Legal Issues: None reported??? Behavioral Health Issues: ??Mental Health History:? MOB initially reports no MH and then reports hx of PPD/A, as well as being active with telepsychiatry services. MOB reports being prescribed Latuda and another medication but is unable to recall. MOB explained her next appointment is in April and will be discussing resuming medications. MOB reports no previous psych hospitalization. No AOD concerns. Family/Social Stressors:? No stressors identified. Support Systems: MOB reports she is supported by FOB, their parents, their siblings, NBs Godmother and friends. Depression/Shaken Baby/Safe Sleeping: TEENA educated MOB on depression/anxiety as well as shaken baby and safe sleep. MOB report [facility]. TEENA provided MOB with educational information as well as resources on the topics. MOB report understanding and voice no other needs. SW encouraged MOB to contact OB or PCP if she is concerned with symptoms. ??? ASSESSMENT:? TEENA met with MOB and introduced herself and role as [facility] Personalization Specialist. MOB in agreement to speak with SW with FOB present. SW utilized open and close ended questions to gather information needed for an assessment. MOB report having supplies needed, identified supports and reports being active with [facility] and S services, but declined additional referrals. MOB reports history of depression and anxiety and is currently engaged in telepsychiatry services with an appointment next month to discuss resuming previously prescribed medications. TEENA educated MOB on safe sleep, shaken baby and PPD/A. TEENA also provided local resources for [facility]. TEENA updated RN of resources provided, no concerns. PLAN:? ?No other services requested or indicated. Fidelia AKBAR, ROHITH
[2023-03-26 15:27] VITALS: BP 114/65; PULSE 82; RESP 16; TEMP 36.5; O2SAT 97
[2023-03-26 18:13] LABS: Pathology Specimen OB SEE PATHOLOGY REPORT
[2023-03-26 20:57] VITALS: BP 115/67; PULSE 82; RESP 18; TEMP 36.6
[2023-03-26] MEDS: Enoxaparin 40 MG/0.4 ML Syringe SC (21:00)
[2023-03-26] MEDS: morphine 10 MG/ML Syringe 6 MG IM (21:42)
[2023-03-26] MEDS: Ondansetron ODT 4 MG Tablet PO (21:42)
[2023-03-27] MEDS: Acetaminophen 500 MG Tablet 1000 MG PO ×4 (00:47→18:22)
[2023-03-27 02:48] VITALS: BP 87/49; PULSE 76; RESP 18
[2023-03-27] MEDS: Naproxen 500 MG Tablet PO ×3 (02:50→18:22)
[2023-03-27] MEDS: oxyCODONE 5 MG Tablet PO ×4 (04:20→20:12)
[2023-03-27 04:21] VITALS: BP 114/66
--- NOTE | 2023-03-27 08:39 | PCM.PN.OB ---
Subjective Subjective Patient doing well without complaints. Tolerating PO. Ambulating and voiding without difficulty. Feeding well. Denies chest pain, shortness of breath, calf pain/swelling, fevers, chills, lightheadedness. She was given IM morphine last nigh and now finally feels she is getting in a good routine of pain management. She does not want to go home today Objective Data Objective Data Vital Signs: Vital Signs Temp Pulse Resp BP Pulse Ox O2 Del Method 97.9 F 76 18 114/66 97 Room Air 03/26/23 20:57 03/27/23 02:48 03/27/23 02:48 03/27/23 04:21 03/26/23 15:27 03/27/23 02:48 Oxygen Delivery Method Room Air Weight: 258 lb 3.2 oz Body Mass Index (BMI) 38.1 Intake & Output: Intake and Output for Last 24 Hours 03/25/23 03/26/23 03/27/23 23:59 23:59 23:59 Intake Total 2137.35 / 2137.35 Output Total 1950 / 1950 1000 / 1000 Balance 187.35 / 187.35 -1000 / -1000 Lab / Micro Data 03/26/23 06:30 ROS Constitutional Constitutional: Reports systems reviewed and no addt'l complaints, except as documented Eyes Eyes: Denies change in vision ENT HEENT: Reports systems reviewed and no addt'l complaints, except as documented; Denies headache(s) Cardiovascular Cardiovascular: Reports systems reviewed and no addt'l complaints, except as documented; Denies chest pain, dizziness, dyspnea or irregular heart rhythm Respiratory/Chest Respiratory/Chest: Reports systems reviewed and no addt'l complaints, except as documented; Denies cough, pain on inspiration or shortness of breath at rest Gastrointestinal Gastrointestinal: Reports systems reviewed and no addt'l complaints, except as documented; Denies abdominal pain, nausea or vomiting Genitourinary Genitourinary: Reports systems reviewed and no addt'l complaints, except as documented, contractions Details: present (irregular) and movement Details: present; Denies burning urination, dysuria or genital lesions Musculoskeletal Musculoskeletal: Reports systems reviewed and no addt'l complaints, except as documented; Denies muscle cramps, muscle spasms or muscle weakness Neurologic Neurologic: Reports systems reviewed and no addt'l complaints, except as documented; Denies confusion, dizziness, headache(s) or lack of coordination Psychiatric Psychiatric: Denies anxiety, behavioral changes or depression Endocrine Endocrinology: Reports systems reviewed and no addt'l complaints, except as documented Physical Exam Const alert, oriented x3, no apparent distress and healthy appearing HEENT normocephalic and moist oral mucous membranes Neck full ROM, no lymphadenopathy, supple and thyroid normal General: trachea midline Lymph Lymphatic: no lymphadenopathy noted Chest inspection of chest normal Resp normal respiratory effort and normal air movement Cardio regular rate GI normal to inspection, nondistended, normoactive bowel sounds, soft to palpation, non-tender and non-distended Inspection: gravid Rectal Exam: other Other Details: Incision is clean, dry, and intact no CVA tenderness Extremity normal to inspection General Extremity: edema bilateral (trace ) Skin no rashes or lesions noted Neuro no focal motor deficits and deep tendon reflexes 2+ bilaterally Motor Exam: strength 5/5 throughout and clonus absent Psych mental status grossly normal Assessment & Plan (1) delivery delivered: COMMENT: LTCS BS twins Wilmer Boland (2) Status post bilateral salpingectomy: (3) Rh negative status during : QUALIFIERS: Trimester: second trimester Qualified Code(s): O26.892 - Other specified related conditions, second trimester; Z67.91 - Unspecified blood type, Rh negative COMMENT: Rhogam at 28 weeks and prn, given 01/21/23 PLAN: Plan s/p LTCS PPD # 1 twin section with BTL 1. routine post care 2. breast feeding- support given 3. rh neg- rhogam given 4. rubella immune 5. continue supportive are. dc to home tuesday
[2023-03-27 08:52] VITALS: BP 115/71; PULSE 78; RESP 17; TEMP 36.4
[2023-03-27] MEDS: Senna/Docusate Sodium 1 Tablet PO (10:08)
[2023-03-27 13:56] VITALS: BP 116/71; PULSE 99; RESP 16; TEMP 36.6
[2023-03-27 19:40] VITALS: BP 116/62; PULSE 96; RESP 18; TEMP 36.8; O2SAT 97
[2023-03-27] MEDS: Enoxaparin 40 MG/0.4 ML Syringe SC (20:11)
[2023-03-28] MEDS: Acetaminophen 500 MG Tablet 1000 MG PO ×3 (00:54→11:42)
[2023-03-28 01:55] VITALS: BP 113/73; PULSE 76; RESP 16; TEMP 36.3; O2SAT 95
[2023-03-28] MEDS: oxyCODONE 5 MG Tablet PO (01:55)
[2023-03-28] MEDS: Naproxen 500 MG Tablet PO ×2 (03:14→11:42)
[2023-03-28 08:00] VITALS: BP 111/76; PULSE 74; RESP 16; TEMP 36.2
--- NOTE | 2023-03-28 08:27 | PCM.PN.OB ---
Subjective Subjective Patient doing well without complaints. Tolerating PO. Ambulating and voiding without difficulty. infants bottle Feeding well. Denies chest pain, shortness of breath, calf pain/swelling, fevers, chills, lightheadedness. Objective Data Objective Data Vital Signs: Vital Signs Temp Pulse Resp BP Pulse Ox O2 Del Method 97.4 F L 76 16 113/73 95 Room Air 03/28/23 01:55 03/28/23 01:55 03/28/23 01:55 03/28/23 01:55 03/28/23 01:55 03/28/23 01:55 Oxygen Delivery Method Room Air Weight: 258 lb 3.2 oz Body Mass Index (BMI) 38.1 Intake & Output: Intake and Output for Last 24 Hours 03/26/23 03/27/23 03/28/23 23:59 23:59 23:59 Output Total 1000 / 1000 Balance -1000 / -1000 Lab / Micro Data 03/26/23 06:30 Physical Exam Const alert, oriented x3, no apparent distress and healthy appearing HEENT normocephalic and moist oral mucous membranes Neck full ROM, no lymphadenopathy, supple and thyroid normal General: trachea midline Lymph Lymphatic: no lymphadenopathy noted Chest inspection of chest normal Resp normal respiratory effort and normal air movement Cardio regular rate GI normal to inspection, nondistended, normoactive bowel sounds, soft to palpation, non-tender and non-distended Inspection: gravid Rectal Exam: other Other Details: Incision is clean, dry, and intact no CVA tenderness Extremity normal to inspection General Extremity: edema bilateral (trace ) Skin no rashes or lesions noted Neuro no focal motor deficits and deep tendon reflexes 2+ bilaterally Motor Exam: strength 5/5 throughout and clonus absent Psych mental status grossly normal Assessment & Plan (1) delivery delivered: COMMENT: LTCS BS twins Wilmer Boland (2) Status post bilateral salpingectomy: (3) Rh negative status during : QUALIFIERS: Trimester: second trimester Qualified Code(s): O26.892 - Other specified related conditions, second trimester; Z67.91 - Unspecified blood type, Rh negative COMMENT: Rhogam at 28 weeks and prn, given 01/21/23 PLAN: Plan s/p LTCS PPD # 3 1. routine post care 2. bottle feeding- support given 3. rh negative- rhogam per policy 4. rubella immune 5. d/c home today
--- NOTE | 2023-03-28 08:31 | PCM.DC.SUM ---
Providers Date of Admission: 03/25/23 Primary Care Physician: No Primary Care Phys Reason For Visit: C SECTION/C SECTION DELIVERY TWINS Diagnosis Discharge Diagnosis (1) delivery delivered: Status: Acute Code(s): O82 - Encounter for delivery without indication (2) Status post bilateral salpingectomy: Status: Acute Code(s): Z90.79 - Acquired absence of other genital organ(s) (3) Rh negative status during : Status: Acute Code(s): O26.899 - Other specified related conditions, unspecified trimester; Z67.91 - Unspecified blood type, Rh negative Qualifiers: Trimester: second trimester Qualified Code(s): O26.892 - Other specified related conditions, second trimester; Z67.91 - Unspecified blood type, Rh negative Plan s/p LTCS PPD # 3 1. routine post care 2. bottle feeding- support given 3. rh negative- rhogam per policy 4. rubella immune 5. d/c home today Medications at Discharge Home Medications famotidine 20 mg tablet (Pepcid) 20 mg PO Q12H heart burn #60 tabs 11/01/22 ferrous sulfate 325 mg (65 mg iron) tablet (Feosol) 325 mg PO DAILY low iron 03/08/23 nitrofurantoin macrocrystal 100 mg capsule 100 mg PO BID uti 7 days #14 caps 03/18/23 naproxen 500 mg tablet 500 mg PO BID PRN PRN Pain #30 tabs 03/25/23 oxycodone-acetaminophen 5 mg-325 mg tablet (Percocet) 1 tab PO Q6H PRN pain 7 days #20 tabs 03/25/23 Hospital Course Operations section Summary of Care Provided Hospital Course: LTCS for twin delivery with bilateral salpingectomy . stable hospitalization course. Physical Exam Const alert, oriented x3, no apparent distress and healthy appearing HEENT normocephalic and moist oral mucous membranes Neck full ROM, no lymphadenopathy, supple and thyroid normal General: trachea midline Lymph Lymphatic: no lymphadenopathy noted Chest inspection of chest normal Resp normal respiratory effort and normal air movement Cardio regular rate GI normal to inspection, nondistended, normoactive bowel sounds, soft to palpation, non-tender and non-distended Inspection: gravid Rectal Exam: other Other Details: Incision is clean, dry, and intact no CVA tenderness Extremity normal to inspection General Extremity: edema bilateral (trace ) Skin no rashes or lesions noted Neuro no focal motor deficits and deep tendon reflexes 2+ bilaterally Motor Exam: strength 5/5 throughout and clonus absent Psych mental status grossly normal Weight / BMI Weight Weight: 258 lb 3.2 oz Body Mass Index (BMI) 38.1 ABG / Lab / Microbiology Data 03/26/23 06:30 D/C Instructions Discharge Diet: No restrictions May shower in (days): 0 May resume sexual activity in: 4-6 weeks Weight Bearing Status: Full weight bearing Call your doctor if your incision/area has: Continuous Slow Oozing, Sudden Increased Bleeding, Increased Pain/ Swelling, Increased Redness and Foul Smelling Discharge Call your doctor if you observe: Fever of 101 or Higher and Using more than 1 pad per hour (for 2 hours) Suture Line Care: Avoid Pulling/Pushing and Avoid Pinching/Bending Cleanse incision/area with: Soap & Water and Keep Dressing Clean & Dry Please Follow Up With: Shari Hallman MD When: Call [phone] to make an appointment for an incision check in 1-2 weeks. Meaningful Use Info Meaningful Use Diagnoses (Choose all that apply): None applicable Discharge Plan Admission Admit Date/Time: 03/25/23 05:00 Attending Provider: Shari Hallman Primary Care Provider: Care PhysicianRhonda Primary Discharge Orders/Prescriptions Prescriptions: New oxycodone-acetaminophen [Percocet] 5-325 mg tablet 1 tab PO Q6H PRN (Reason: pain) 7 Days Qty: 20 0RF naproxen [naproxen] 500 mg tablet 500 mg PO BID PRN PRN (Reason: Pain) Qty: 30 1RF No Action famotidine [Pepcid] 20 mg tablet 20 mg PO Q12H Qty: 60 6RF nitrofurantoin macrocrystal 100 mg capsule 100 mg PO BID 7 Days Qty: 14 0RF Rx Instructions: must administer with a meal/food ferrous sulfate [Feosol] 325 mg (65 mg iron) tablet 325 mg PO DAILY Referrals / Follow Up: Care PhysicianRhonda Primary [Primary Care Provider] - Disposition Disposition (needs filled in before D/C Order can be placed): Home, Self Care
--- NOTE | 2023-03-28 10:55 | CASEMGMT ---
Social Work Labor and Delivery Unit ? Summary:?Mohsen informed by charge nurse and bedside RN that father of baby (FOPaola- Zev) has been calling the baby/s inappropriate names fat ass and has not been practicing safe sleep, even though he has been educated otherwise. - Sw presented to bedside, introduced self to FOB and mother of baby (MOB- Danitza) and explained reason for sw involvement at this time. Sw informed parents that sw wanted to follow up with them prior to discharge to reiterate importance of safe sleep and review resources that may be beneficial for them at this time. - FOB became frustrated and said that he was going to leave. Sw informed FOB that sw would prefer to have this conversation with him present, and asked what he is frustrated about. FOB state that if someone has something they want to say, they can say it to his face. Sw explained to FOB that is why sw is meeting with them at this time. FOB then proceeded to leave the room. - Sw continued conversation with MOB. Sw explained to MOB that it is not safe for baby's to sleep with a parent on the couch or in a chair in the crook of a parents arm. Sw stated that unfortunately that is how accidents, including accidental deaths happen. MOB stated that when one of their baby's gets fussy, FOB will pick the baby up and sleep with them and while that is going on MOB will stay up to ensure that nothing happens. Sw explained that unfortunately babies don't wake up, instead they in their sleep, never alerting the parent that they are not breathing. MOB stated that FOB just wants to raise the twins how he raised his other children, and how he was raised. - Sw also pointed out to MOB that is a red flag the way that FOB addresses the babies by calling them inappropriate names. Sw asked if FOB talks to their other children in that manner. MOB said that he does, but not in a hateful tone. Sw asked if the other children act as though their feelings are hurt, and MOB said no. - MOB confirmed that they do have safe sleep spaces for the twins- a side by side pack-n-play. - Sw asked MOB if she is receptive to getting connected to [facility] at this time, MOB denied. Sw encouraged MOB to continue to consider the resource due to having twins born at 37 weeks and the benefits that [facility] can provide. - Sw asked MOB if she has history of baby blues or depression. MOB said that she had depression following the of her first baby. MOB states that she is on Latuda and another medication that starts with l but she does not remember what it is. Sw reiterated signs and symptoms of baby blues/ to look out for. - Sw asked that MOB notify nursing to have sw return to room if FOB returns and is receptive to talking with sw prior to discharge some time today. MOB expressed understanding. ? Assessment:??MOB and FOB at bedside, twins in cribs. MOB was receptive to talking with sw, but does not acknowledge that there is anything wrong with their current sleep habits with the twins. Concerns regarding safe sleep remain. MOB with mental health history and would benefit from getting connected to mental health supports. ? Intervention:?Referral made to [facility] due to concerns of parents not practicing safe sleep, and not receptive to linkage to beneficial community resources at this time. Sw spoke to hotline screener, Kirsty French. Sw informed Ms. French of concerns mentioned above: not practicing safe sleep, FOB calling the babies inappropriate names (as well as children at home), maternal mental health history, and declining linkage to community resources. Mohsen let Ms. French know that MOB and babies are to be discharged today. ? Plan:?MOB and twins to be discharged when medically ready. ? No other services requested or indicated. Deandre Harvey, SUPERVISOR OF RESEARCH, AUTO SUSPENSION AND STEERING MECHANIC
--- NOTE | 2023-04-06 15:19 | CASEMGMT ---
Social Work Labor and Delivery Sw received mandated compressed yeast supervisor letter following referral that this social services made on 03/28/23 indicating that the referral was screened out at this time, Children Services will not be involved. Deandre Harvey, LOCKER ROOM CLERK, CROWN ATTACHER
== END 2023-03-28 12:00 | disposition home or self-care (01) | DRG 785 ==
PROVIDERS: Admitting Provider Obstetrics & Gynecology; Visit Provider Obstetrics & Gynecology
PROC: (CPT 59514; principal; 2023-03-25 07:15)
DX: O34.211 Maternal care for low transverse scar from previous cesarean delivery (principal); Z37.2 Twins, both liveborn; O99.214 Obesity complicating childbirth; O26.893 Other specified pregnancy related conditions, third trimester; Z67.11 Type A blood, Rh negative; O30.033 Twin pregnancy, monochorionic/diamniotic, third trimester; O35.8XX1 Maternal care for other (suspected) fetal abnormality and damage, fetus 1; O35.8XX2 Maternal care for other (suspected) fetal abnormality and damage, fetus 2; O99.02 Anemia complicating childbirth; Z14.8 Genetic carrier of other disease; Z3A.37 37 weeks gestation of pregnancy; Z86.16 Personal history of COVID-19; Z30.2 Encounter for sterilization
CPT/HCPCS: 59025; 59050; 85025; 85027; 85461; 86780; 86850; 86900; 86901; 88302; 88307; 99221; J7120; A4216; G0378; J2405; J2790

== ENCOUNTER 2023-06-08 09:26 | Emergency (ER) | payer BC, MEDICAID, SELFPAY ==
[2023-06-08 09:26] VITALS: BP 125/87; PULSE 84; RESP 14; TEMP 36.5; O2SAT 100; BMI 34.0
[2023-06-08] MEDS: 0.9% Normal Saline (1000mL) 1,000 ML 1000 ML IV (10:09)
[2023-06-08] MEDS: Ondansetron 4 MG/2 ML Vial IV (10:09)
--- NOTE | 2023-06-08 10:18 | EX.ED.DYSGE1 ---
HPI History of Present Illness Chief Complaint: Nausea/Vomiting/Diarrhea Narrative Narrative: 3-year-old female presenting with viral symptoms. Patient states that she had fever and chills on Tuesday and Tuesday. Her fever broke Tuesday. Tmax 101.9. Patient states that she still has body aches and chills. She had some nausea and vomiting and now is having loose stools. No recent antibiotics use. Patient states that he is feeling better although she has residual nausea and bloody stools. She has 5 children at home and one of them is sick with strep throat. She does not feel like she has a sore throat. PFSH PFS Medical History Anemia delivery delivered Chondromalacia patellae, left knee Foot pain, left Internal derangement of left knee Left ankle sprain Left knee pain No significant family history No significant medical problems Pap smear to confirm normal after abnormal result Peroneal tendonitis of left lower extremity care and examination Rh negative status during Vaginal delivery Home Medications ondansetron 4 mg disintegrating tablet 4 mg PO Q8H PRN PRN Nausea #20 tabs 06/08/23 [Rx Last Taken Unknown] Allergy/AdvReac Type Severity Reaction Status Date / Time No Known Allergies Allergy Verified 06/08/23 09:28 Surgical History No significant past surgical history Status post bilateral salpingectomy Social History household members: family housing: house number of children: 2 pets and animals: Yes sexually active: No Smoking Status: Never smoker second hand exposure: Yes alcohol intake: current alcohol intake frequency: holidays/special occasions only details: not while substance use type: does not use seatbelt use: always do you feel safe at home: Yes additional social history: Spouse: Jase LARSON ED Constitutional Constitutional ED: Reports chills and fever(s); Denies sweats Eyes Eyes: Denies blurry vision or change in vision ENT ENT ED: Denies ear pain or sore throat Cardiovascular Cardiovascular: Denies chest pain, palpitations or racing heartbeat Respiratory/Chest Respiratory/Chest: Denies cough, dyspnea or sputum Gastrointestinal Gastrointestinal: Reports diarrhea, nausea and vomiting; Denies abdominal pain or constipation Genitourinary Genitourinary ED: Denies dysuria, hematuria or urinary frequency Musculoskeletal Musculoskeletal: Reports myalgias; Denies arthralgias or neck pain Integumentary Denies abscess, Abrasions or rash Neurologic Neurologic: Denies headache(s), paresthesias or weakness Psychiatric Psychiatric: Denies anxiety, depression, suicidal ideation or suicidal thoughts Endocrine Endocrinology: Denies polydipsia or polyuria EXAM Physical Exam Const Vital Signs: 06/08/23 09:26 Temperature 97.7 F L Temperature Source Temporal Pulse Rate 84 Respiratory Rate 14 Blood Pressure 125/87 H Blood Pressure Mean 99 Pulse Ox 100 Oxygen Delivery Method Room Air General Appearance ED: NAD; Negative for pallor HEENT Reports moist mucous membranes Eyes PERRL and EOMs intact bilaterally General Eye ED: Yes pale conjunctiva Chest Wall inspection of chest normal Resp normal respiratory effort and clear to auscultation bilaterally Auscultation: Negative for rales, rhonchi or wheezes Cardio regular rate and regular rhythm GI normal to inspection, nondistended, normoactive bowel sounds Extremity normal to inspection Neuro oriented x3 and CN's II-XII intact bilaterally Sensorium / Orientation: alert Psych mental status grossly normal Skin no rashes or lesions noted and no wounds General Skin Exam: Negative for jaundice or pallor MDM MDM MDM Narrative Medical decision making narrative: Patient presents with nausea, vomiting, diarrhea. She suspects that something viral. She is actually feeling improved although she had a lot of diarrhea and she is concerned about this. Patient medicated with Zofran, Pepcid, liter normal saline. Patient counseled that as far as diarrhea goes this would likely run its course. She wants to be tested for COVID and influenza just to make sure she does not have this so if her kids get sick she will no what it is. hCG negative. Do not believe the patient needs any lab work or imaging otherwise. Will reevaluate after medicating. Reevaluation at 1136 the patient is feeling much better. She will be given Zofran for home. I counseled her she can take Pepcid as well. Impression: 1. Viral gastroenteritis Lab Data Attestation: I reviewed the patient's lab results. Labs: Laboratory Results - last 24 hr 06/08/23 06/08/23 06/08/23 10:10 10:10 10:40 WBC Cancelled Corrected WBC Cancelled RBC Cancelled Hgb Cancelled Hct Cancelled MCV Cancelled MCH Cancelled MCHC Cancelled RDW Std Deviation Cancelled RDW Coeff of Tosin Cancelled Plt Count Cancelled MPV Cancelled Immature Gran % (Auto) Cancelled Neut % (Auto) Cancelled Lymph % (Auto) Cancelled [place] % (Auto) Cancelled Eos % (Auto) Cancelled Baso % (Auto) Cancelled Absolute Neuts (auto) Cancelled Absolute Lymphs (auto) Cancelled Total Counted Cancelled Neutrophils % (Manual) Cancelled Band Neutrophils % Cancelled Lymphocytes % (Manual) Cancelled Monocytes % (Manual) Cancelled Eosinophils % (Manual) Cancelled Basophils % (Manual) Cancelled Metamyelocytes % Cancelled Myelocytes % Cancelled Promyelocytes % Cancelled Blast Cells % Cancelled Plasma Cell % (Manual) Cancelled Other Cells % Cancelled Nucleated RBC % Cancelled Nucleated RBCs/100 WBC Cancelled Differential Comment Cancelled Diff Path Review Cancelled Hypersegmented Neuts Cancelled Atypical Lymphocytes Cancelled Reactive Lymphocytes Cancelled Smudge Cells Cancelled Toxic Granulation Cancelled Toxic Vacuolation Cancelled Dohle Bodies Cancelled Marck Rods Cancelled Platelet Estimate Cancelled Plt Morphology Comment Cancelled RBC Morphology Cancelled Cancelled Polychromasia Cancelled Hypochromasia Cancelled Poikilocytosis Cancelled Basophilic Stippling Cancelled Anisocytosis Cancelled Microcytosis Cancelled Macrocytosis Cancelled Spherocytes Cancelled Sickle Cells Cancelled Target Cells Cancelled Tear Drop Cells Cancelled Ovalocytes Cancelled Stomatocytes Cancelled Wheeler-Joppa Bodies Cancelled Prasanth Cells Cancelled Bite Cells Cancelled Crenated Cell Cancelled Acanthocytes (Spur) Cancelled Rouleaux Cancelled Schistocytes Cancelled Sodium Cancelled Potassium Cancelled Chloride Cancelled Carbon Dioxide Cancelled Anion Gap Cancelled BUN Cancelled Creatinine Cancelled Estim Creat Clear Calc Cancelled Est GFR (MDRD) Af Amer Cancelled Est GFR (MDRD) Non-Af Cancelled BUN/Creatinine Ratio Cancelled Glucose Cancelled Calcium Cancelled Total Bilirubin Cancelled Direct Bilirubin Cancelled AST Cancelled ALT Cancelled Alkaline Phosphatase Cancelled Total Protein Cancelled Albumin Cancelled Globulin Cancelled Lipase Cancelled Serum , Qual Cancelled Urine Test Negative Discharge Plan Triage Chief Complaint: Nausea/Vomiting/Diarrhea ED Provider: Jose Armando Rich Dx/Rx/DC Orders Instructions: ED Gastroenteritis, Viral (Adult) Prescriptions: New ondansetron 4 mg tablet,disintegrating 4 mg PO Q8H PRN PRN (Reason: Nausea) Qty: 20 0RF Primary Care Provider: Care Physician,No Primary Referrals: Care Physician,No Primary [Primary Care Provider] - Disposition Disposition: Home, Self Care
[2023-06-08] MEDS: Famotidine 200 MG/20 ML MDV 20 MG in 0.9% Normal Saline (Pres. free 8 ML 300 MG IV (10:46)
[2023-06-08 11:06] LABS: Internal QC Validated? YES +Cl - CLEAR BKGD; Pregnancy, Urine Negative Negative
== END 2023-06-08 12:00 | disposition home or self-care (01) ==
PROVIDERS: Emergency Provider Student in an Organized Health Care Education/Training Program; Visit Provider Student in an Organized Health Care Education/Training Program
DX: A08.4 Viral intestinal infection, unspecified (principal)
CPT/HCPCS: 81025; 87428; 96365; 96375; 99283; J7030; A4216; J2405; J3490

== ENCOUNTER → 2024-03-12 | Outpatient (CLI) | payer BC, MEDICAID, SELFPAY ==
[2024-03-12 18:09] LABS: Internal QC Validated? YES +Cl - CLEAR BKGD; Pregnancy, Serum, hCG Quali. NEGATIVE Negative
== END | disposition home or self-care (01) ==
PROVIDERS: Referring Provider Obstetrics & Gynecology; Visit Provider Obstetrics & Gynecology
DX: N91.2 Amenorrhea, unspecified (principal)
CPT/HCPCS: 84703

== ENCOUNTER → 2025-05-08 | Outpatient (CLI) | payer MEDICAID, SELFPAY | END | disposition home or self-care (01) | LOC: LABSPEC 16:09 | PROVIDERS: Visit Provider Nurse Practitioner Women's Health | DX: Z12.4 Encounter for screening for malignant neoplasm of cervix (principal) | CPT/HCPCS: 88175; G0145 ==